=== PATIENT | male | born 1950 | race Caucasian/White ===

== ENCOUNTER → 2017-05-25 | Outpatient (CLI) | payer MEDICARE ==
--- NOTE | 2017-05-29 09:46 | P.ARTDOP ---
Arterial Doppler LOWER EXTREMITY ARTERIAL DOPPLER: DATE OF SERVICE: 05/25/2017 Reason for study: Bilateral foot discoloration and numbness. Doppler waveforms: Multiphasic bilaterally throughout. Pulse volume recording: Normal configuration. Pressure gradients: None. Ankle-brachial indices: Greater than 1 bilaterally. Toe pressures: [] on the right, [] on the left Impression: Normal study.
== END | disposition home or self-care (01) ==
LOC: RADUSMAIN 09:56
PROVIDERS: ATTEND Family Medicine
DX: R60.0 Localized edema (principal); I10 Essential (primary) hypertension
CPT/HCPCS: 93923

== ENCOUNTER 2019-10-04 16:06 | Emergency (ER) | payer MEDICARE ==
[2019-10-04 16:31] VITALS: RESP 20; TEMP 98.7
--- NOTE | 2019-10-04 16:55 | ED ---
General Adult HPI - General Chief complaint: Shortness of Breath Stated complaint: SOB, Cough Time Seen by Provider: 10/04/19 16:55 Source: patient Mode of arrival: ambulatory Limitations: no limitations - History of Present Illness Initial comments: Patient presents the ED complaining of having a cough and congestion for the past week or so. Patient also admits to feeling mildly dyspneic. Patient states that his has had similar symptoms as well, and she is currently being evaluated in the ED for her symptoms. Patient denies any other known sick contact, known Covid19 exposure or recent travel abroad. Patient denies having any pain, fever or chills, headache, neck pain or stiffness, sore throat, chest pain, hemoptysis, palpitations, dizziness, nausea/vomiting/diarrhea, abdominal pain, dysuria or urinary symptoms, leg or calf swelling or pain, or any other symptoms or complaints. - Related Data Previous Rx's Medication Instructions Recorded Doxycycline Hyclate 100 mg PO BID 7 Days #14 tab 10/04/19 Allergies Allergy/AdvReac Type Severity Reaction Status Date / Time Penicillins Allergy Rash/Hives Verified 10/04/19 16:31 Review of Systems ROS Statement: Those systems with pertinent positive or pertinent negative responses have been documented in the HPI. ROS Other: All systems not noted in ROS Statement are negative. Past Medical History Past Medical History: Hyperlipidemia, Hypertension History of Any Multi-Drug Resistant Organisms: None Reported Past Surgical History: Orthopedic Surgery Additional Past Surgical History / Comment(s): lt knee Past Psychological History: No Psychological Hx Reported Smoking Status: Former smoker Past Alcohol Use History: None Reported Past Drug Use History: None Reported General Exam Limitations: no limitations General appearance: alert, in no apparent distress Head exam: Present: atraumatic, normocephalic Eye exam: Present: normal appearance, EOMI ENT exam: Present: normal oropharynx, mucous membranes moist Neck exam: Present: other (Trachea is in midline). Absent: tenderness, meningismus Respiratory exam: Present: normal lung sounds bilaterally. Absent: respiratory distress, wheezes, rales, rhonchi, stridor Cardiovascular Exam: Present: regular rate, normal rhythm, normal heart sounds, other (Normal radial pulses bilaterally) GI/Abdominal exam: Present: soft. Absent: distended, tenderness, guarding Extremities exam: Present: other (Negative Homans sign bilaterally). Absent: tenderness, pedal edema, calf tenderness Neurological exam: Present: alert, oriented X3. Absent: motor sensory deficit Psychiatric exam: Present: normal affect, normal mood Skin exam: Present: warm, dry, intact, normal color Course Vital Signs 10/04/19 10/04/19 16:20 16:27 Temperature 98.7 F Pulse Rate 68 Respiratory 20 20 Rate Blood Pressure 106/69 O2 Sat by Pulse 94 L Oximetry - Reevaluation(s) Reevaluation #1: 10/04/19 18:05 Patient remains alert and breathing comfortably. Patient denies development of any new symptoms while in the ED. Patient is aware of his test results, and he feels comfortable being discharged home at this time. Medical Decision Making - Medical Decision Making Patient's chest x-ray shows a patchy right-sided infiltrate. Given the patient's reported cough, will treat the patient with a course of doxycycline for suspected community-acquired pneumonia. I have also explained to the patient that Covid19 is certainly still a possibility, and he was counseled about social distancing and symptoms to watch for home. Patient was counseled about pneumonia, and he was clearly explained return and follow-up instructions. He was instructed to return to the ED should he develop new or worsening dyspnea or symptoms. He was also instructed to follow up closely with his primary care provider. He feels comfortable with this plan. - Lab Data Result diagrams: 10/04/19 17:05 10/04/19 17:05 Lab Results 10/04/19 10/04/19 Range/Units 17:05 17:05 WBC 4.2 (3.8-10.6) k/uL RBC 5.24 (4.30-5.90) m/uL Hgb 16.5 (13.0-17.5) gm/dL Hct 48.3 (39.0-53.0) % MCV 92.1 (80.0-100.0) fL MCH 31.5 (25.0-35.0) pg MCHC 34.2 (31.0-37.0) g/dL RDW 12.9 (11.5-15.5) % Plt Count 103 L (150-450) k/uL Neutrophils % 65 % Lymphocytes % 25 % Monocytes % 6 % Eosinophils % 1 % Basophils % 0 % Neutrophils # 2.7 (1.3-7.7) k/uL Lymphocytes # 1.0 (1.0-4.8) k/uL Monocytes # 0.3 (0-1.0) k/uL Eosinophils # 0.0 (0-0.7) k/uL Basophils # 0.0 (0-0.2) k/uL Sodium 136 L (137-145) mmol/L Potassium 3.9 (3.5-5.1) mmol/L Chloride 99 (98-107) mmol/L Carbon Dioxide 31 H (22-30) mmol/L Anion Gap 6 mmol/L BUN 19 (9-20) mg/dL Creatinine 0.88 (0.66-1.25) mg/dL Est GFR (CKD-EPI)AfAm >90 (>60 ml/min/1.73 sqM) Est GFR (CKD-EPI)NonAf 89 (>60 ml/min/1.73 sqM) Glucose 105 H (74-99) mg/dL Calcium 8.2 L (8.4-10.2) mg/dL Total Bilirubin 1.3 (0.2-1.3) mg/dL AST 53 (17-59) U/L ALT 33 (4-49) U/L Alkaline Phosphatase 50 (38-126) U/L Total Protein 7.0 (6.3-8.2) g/dL Albumin 4.0 (3.5-5.0) g/dL - Radiology Data Radiology results: image reviewed (Chest x-ray shows patchy right-sided infiltrate and left basilar atelectasis) Disposition Clinical Impression: Pneumonia Disposition: HOME SELF-CARE Condition: Stable Instructions (If sedation given, give patient instructions): Pneumonia (ED) Additional Instructions: Return to the ER immediately should you develop increased shortness of breath, chest pain, a high fever, persistent vomiting, feeling dizzy or faint, or new or worsening symptoms. Follow up closely with your primary care provider. Prescriptions: Doxycycline Hyclate 100 mg PO BID 7 Days #14 tab Is patient prescribed a controlled substance at d/c from ED?: No Referrals: Karime Jaquez MD [Primary Care Provider] - 1-2 days Time of Disposition: 18:10
[2019-10-04 17:38] LABS: Basophils % (A) 0 %; Eosinophils % (A) 1 %; HCT 48.3 % (39.0-53.0); HGB 16.5 gm/dL (13.0-17.5); Lymphocytes % (A) 25 %; MCH 31.5 pg (25.0-35.0); MCHC 34.2 g/dL (31.0-37.0); MCV 92.1 fL (80.0-100.0); Monocytes # (A) 0.3 k/uL (0-1.0); Monocytes % (A) 6 %; Neutrophils # (A) 2.7 k/uL (1.3-7.7); Neutrophils % (A) 65 %; Platelet Count 103 k/uL (150-450); RBC 5.24 m/uL (4.30-5.90); RDW 12.9 % (11.5-15.5); WBC 4.2 k/uL (3.8-10.6)
--- NOTE | 2019-10-04 17:42 | XR ---
EXAMINATION TYPE: XR chest 2V DATE OF EXAM: 10/04/2019 COMPARISON: NONE HISTORY: Cough, shortness of breath, and fever TECHNIQUE: Frontal and lateral views of the chest are obtained. FINDINGS: Faint patchy opacities are seen in the right lower lung peripherally, right midlung, and m ore linear opacity of the left lung base suspected to represent atelectasis. No sizable pleural effus ion or pneumothorax. Cardia mediastinal silhouette is upper limits normal size. Mild degenerative perlita nge of the spine. IMPRESSION: Faint patchy multifocal right-sided airspace disease and may represent pneumonia. Left b asilar linear airspace disease appears as atelectasis.
[2019-10-04 17:46] LABS: ALT 33 U/L (4-49); AST 53 U/L (17-59); African American GFR (CKD) >90 (>60 ml/min/1.73 sqM); Alkaline Phosphatase 50 U/L (38-126); Anion Gap 6 mmol/L; Blood Urea Nitrogen 19 mg/dL (9-20); Calcium 8.2 mg/dL (8.4-10.2); Carbon Dioxide 31 mmol/L (22-30); Chloride 99 mmol/L (98-107); Glucose 105 mg/dL (74-99); Non-African American GFR(CKD) 89 (>60 ml/min/1.73 sqM); Potassium 3.9 mmol/L (3.5-5.1); Sodium 136 mmol/L (137-145); Total Bilirubin 1.3 mg/dL (0.2-1.3)
[2019-10-04] MEDS ORDERED: DOXYCYCLINE 100 MG CAP PO STA (17:52)
[2019-10-04 18:26] VITALS: BP 110/78; PULSE 67
== END 2019-10-04 18:25 | disposition home or self-care (01) ==
LOC: EC 16:06
DX: J18.9 Pneumonia, unspecified organism (principal); Z71.89 Other specified counseling; Z87.891 Personal history of nicotine dependence; Z88.0 Allergy status to penicillin
CPT/HCPCS: 36415; 71046; 80053; 85025; 99285

== ENCOUNTER 2019-10-05 22:28 | Inpatient (IN) | payer MEDICARE ==
[2019-10-05] MEDS ORDERED: SODIUM CHLORIDE 0.9% 1,000 ML IV STA (23:04)
[2019-10-05] MEDS ORDERED: ACETAMINOPHEN TAB 325 MG TAB PO STA (23:07)
--- NOTE | 2019-10-05 23:15 | ED ---
General Adult HPI - General Chief complaint: Shortness of Breath Stated complaint: Revisit SOB Time Seen by Provider: 10/05/19 22:43 Source: patient, family, RN notes reviewed, old records reviewed Mode of arrival: ambulatory Limitations: no limitations - History of Present Illness Initial comments: 69-year-old male patient past medical history significant for hypertension hyperlipidemia presents to ED for approximately 1 week of cough, shortness of breath, nausea without vomiting. Patient is on doxycycline for pneumonia. Which was started yesterday. Patient does report that he has had a waxing and waning headache as well. Denies chest pain. Denies any complaints at this time. Systemic: Pt denies fatigue, fever/chills, rash. Pt denies weakness, night sweats, weight loss. Neuro: Pt denies visual disturbances, syncope or pre-syncope. HEENT: Pt denies ocular discharge or irritation, otalgia, rhinorrhea, pharyngitis or notable lymphadenopathy. Cardiopulmonary: Pt denies chest pain, heart palpitations, dyspnea on exertion. Abdominal/GI: Pt denies abdominal pain, n/v/d. : Pt denies dysuria, burning w/ urination, frequency/urgency. Denies new onset urinary or bowel incontinence. MSK: Pt denies myalgia, loss of strength or function in extremities. Neuro: Pt denies new onset weakness, paresthesias. - Related Data Previous Rx's Medication Instructions Recorded Doxycycline Hyclate 100 mg PO BID 7 Days #14 tab 10/04/19 Allergies Allergy/AdvReac Type Severity Reaction Status Date / Time Penicillins Allergy Rash/Hives Verified 10/04/19 16:31 Review of Systems ROS Statement: Those systems with pertinent positive or pertinent negative responses have been documented in the HPI. ROS Other: All systems not noted in ROS Statement are negative. Past Medical History Past Medical History: Hyperlipidemia, Hypertension History of Any Multi-Drug Resistant Organisms: None Reported Past Surgical History: Orthopedic Surgery Additional Past Surgical History / Comment(s): lt knee Past Psychological History: No Psychological Hx Reported Smoking Status: Former smoker Past Alcohol Use History: None Reported Past Drug Use History: None Reported General Exam - General Exam Comments Initial Comments: Constitutional: NAD, AOX3, Pt has pleasant affect. HEENT: NC/AT, trachea midline, neck supple, no lymphadenopathy. Posterior pharynx non erythematous, without exudates. External ears appear normal, without discharge. Mucous membranes moist. Eyes PERRLA, EOM intact. There is no scleral icterus. No pallor noted. Cardiopulmonary: RRR, no murmurs, rubs or gallops, no JVD noted. Lungs CTAB in anterior and posterior da silva. No peripheral edema. Abdominal exam: Abdomen soft and non-distended. Abdomen non-tender to palpation in all 4 quadrants. Bowel sounds active in LLQ. No hepatosplenomegaly. No ecchymosis Neuro: CN II-XII grossly intact. No nuchal rigidity. No raccon eyes, no francisco sign, no hemotympanum. No cervical spinal tenderness. MSK: No posterior calf tenderness bilaterally, homans sign negative bilaterally. Posterior tibialis and radial pulse +2 bilaterally. Sensation intact in upper and lower extremities. Full active ROM in upper and lower extremities, 5/5 stregnth. Limitations: no limitations Course Vital Signs 10/05/19 10/05/19 10/06/19 22:37 23:50 00:20 Temperature 99.9 F H Pulse Rate 82 Respiratory 18 Rate Blood Pressure 149/78 O2 Sat by Pulse 89 L 85 L 92 L Oximetry 10/06/19 00:21 Temperature Pulse Rate Respiratory 22 Rate Blood Pressure O2 Sat by Pulse Oximetry Medical Decision Making - Medical Decision Making 69-year-old male patient past medical history significant for hypertension hyperlipidemia presents to ED for approximately 1 week of cough, shortness of breath, nausea without vomiting. Patient is on doxycycline for pneumonia. Which was started yesterday. Patient does report that he has had a waxing and waning headache as well. Denies chest pain. Denies any complaints at this time. Patient vital signs displayed temperature of 99.9F. Pulse ox urination on room air initially 89%. Patient is in the low 90s with a 2 L nasal cannula. Patient is in no respiratory distress. Laboratory investigations obtained, which are overall noncompressive. Chest x-ray displayed mild interstitial infiltrate and subsegmental atelectasis at the lung bases unchanged compared to yesterday. Patient previously on doxycycline but will be transitioned to R ocephin and azithromycin. Patient will be tested for Covid and admitted. EKG displayed prolonged QT. Patient Second degree AV block type II. Patient will be placed on telemetry with cardiology evaluation. Case discussed with Dr. Farrell. - Lab Data Result diagrams: 10/05/19 23:53 10/05/19 23:53 Lab Results 10/05/19 10/05/19 10/05/19 Range/Units 23:53 23:53 23:53 WBC 5.7 (3.8-10.6) k/uL RBC 5.14 (4.30-5.90) m/uL Hgb 15.8 (13.0-17.5) gm/dL Hct 46.8 (39.0-53.0) % MCV 91.1 (80.0-100.0) fL MCH 30.7 (25.0-35.0) pg MCHC 33.7 (31.0-37.0) g/dL RDW 12.9 (11.5-15.5) % Plt Count 123 L (150-450) k/uL Neutrophils % 87 % Lymphocytes % 8 % Monocytes % 4 % Eosinophils % 0 % Basophils % 0 % Neutrophils # 4.9 (1.3-7.7) k/uL Lymphocytes # 0.4 L (1.0-4.8) k/uL Monocytes # 0.2 (0-1.0) k/uL Eosinophils # 0.0 (0-0.7) k/uL Basophils # 0.0 (0-0.2) k/uL Sodium 135 L (137-145) mmol/L Potassium 3.5 (3.5-5.1) mmol/L Chloride 98 (98-107) mmol/L Carbon Dioxide 29 (22-30) mmol/L Anion Gap 8 mmol/L BUN 18 (9-20) mg/dL Creatinine 0.74 (0.66-1.25) mg/dL Est GFR (CKD-EPI)AfAm >90 (>60 ml/min/1.73 sqM) Est GFR (CKD-EPI)NonAf >90 (>60 ml/min/1.73 sqM) Glucose 123 H (74-99) mg/dL Plasma Lactic Acid Hernandez 1.2 (0.7-2.0) mmol/L Calcium 8.2 L (8.4-10.2) mg/dL Magnesium 2.3 (1.6-2.3) mg/dL Total Bilirubin 1.5 H (0.2-1.3) mg/dL AST 49 (17-59) U/L ALT 32 (4-49) U/L Alkaline Phosphatase 57 (38-126) U/L Troponin I (0.000-0.034) ng/mL Total Protein 6.9 (6.3-8.2) g/dL Albumin 3.9 (3.5-5.0) g/dL Influenza Type A RNA (Not Detectd) Influenza Type B (PCR) (Not Detectd) 10/05/19 10/05/19 Range/Units 23:53 23:53 WBC (3.8-10.6) k/uL RBC (4.30-5.90) m/uL Hgb (13.0-17.5) gm/dL Hct (39.0-53.0) % MCV (80.0-100.0) fL MCH (25.0-35.0) pg MCHC (31.0-37.0) g/dL RDW (11.5-15.5) % Plt Count (150-450) k/uL Neutrophils % % Lymphocytes % % Monocytes % % Eosinophils % % Basophils % % Neutrophils # (1.3-7.7) k/uL Lymphocytes # (1.0-4.8) k/uL Monocytes # (0-1.0) k/uL Eosinophils # (0-0.7) k/uL Basophils # (0-0.2) k/uL Sodium (137-145) mmol/L Potassium (3.5-5.1) mmol/L Chloride (98-107) mmol/L Carbon Dioxide (22-30) mmol/L Anion Gap mmol/L BUN (9-20) mg/dL Creatinine (0.66-1.25) mg/dL Est GFR (CKD-EPI)AfAm (>60 ml/min/1.73 sqM) Est GFR (CKD-EPI)NonAf (>60 ml/min/1.73 sqM) Glucose (74-99) mg/dL Plasma Lactic Acid Hernandez (0.7-2.0) mmol/L Calcium (8.4-10.2) mg/dL Magnesium (1.6-2.3) mg/dL Total Bilirubin (0.2-1.3) mg/dL AST (17-59) U/L ALT (4-49) U/L Alkaline Phosphatase (38-126) U/L Troponin I 0.014 (0.000-0.034) ng/mL Total Protein (6.3-8.2) g/dL Albumin (3.5-5.0) g/dL Influenza Type A RNA Not Detected (Not Detectd) Influenza Type B (PCR) Not Detected (Not Detectd) - EKG Data -: EKG Interpreted by Me (and Dr. Farrell) EKG Comments: 50-83, IN interval 172, QRS 94, QT/QTc 4.6 is 500. Prolonged QT. There does appear to be a second-degree AV block type II. Disposition Clinical Impression: Suspected COVID-19 virus infection, Pneumonia, Prolonged QT interval, Mobitz type 2 second degree AV block Disposition: ADMITTED IP TO THIS HOSP Condition: Serious Is patient prescribed a controlled substance at d/c from ED?: No Referrals: Karime Jaquez MD [Primary Care Provider] - 1-2 days
--- NOTE | 2019-10-05 23:49 | XR ---
EXAMINATION TYPE: XR chest 1V DATE OF EXAM: 10/05/2019 COMPARISON: 10/04/2019 HISTORY: Cough and fever TECHNIQUE: FINDINGS: Heart and mediastinum are normal. There is a mild interstitial infiltrate in the lower lobe s. There is no pleural effusion. There are no hilar masses. Bony thorax is intact. IMPRESSION: There is some mild interstitial infiltrate and subsegmental atelectasis at the lung bases unchanged compared to yesterday.
[2019-10-05 23:57] LABS: Basophils % (A) 0 %; Eosinophils % (A) 0 %; HCT 46.8 % (39.0-53.0); HGB 15.8 gm/dL (13.0-17.5); Lymphocytes # (A) 0.4 k/uL (1.0-4.8); Lymphocytes % (A) 8 %; MCH 30.7 pg (25.0-35.0); MCHC 33.7 g/dL (31.0-37.0); MCV 91.1 fL (80.0-100.0); Mean Platelet Volume 8.1; Monocytes # (A) 0.2 k/uL (0-1.0); Monocytes % (A) 4 %; Neutrophils # (A) 4.9 k/uL (1.3-7.7); Neutrophils % (A) 87 %; Platelet Count 123 k/uL (150-450); RBC 5.14 m/uL (4.30-5.90); RDW 12.9 % (11.5-15.5); WBC 5.7 k/uL (3.8-10.6)
[2019-10-06 00:14] LABS: ALT 32 U/L (4-49); AST 49 U/L (17-59); African American GFR (CKD) >90 (>60 ml/min/1.73 sqM); Albumin 3.9 g/dL (3.5-5.0); Alkaline Phosphatase 57 U/L (38-126); Anion Gap 8 mmol/L; Blood Urea Nitrogen 18 mg/dL (9-20); Calcium 8.2 mg/dL (8.4-10.2); Carbon Dioxide 29 mmol/L (22-30); Chloride 98 mmol/L (98-107); Glucose 123 mg/dL (74-99); Magnesium 2.3 mg/dL (1.6-2.3); Non-African American GFR(CKD) >90 (>60 ml/min/1.73 sqM); Potassium 3.5 mmol/L (3.5-5.1); Sodium 135 mmol/L (137-145); Total Bilirubin 1.5 mg/dL (0.2-1.3); Total Protein 6.9 g/dL (6.3-8.2)
[2019-10-06] MEDS ORDERED: KETOROLAC 30 MG/ML 1 ML VIAL IVP STA (00:22)
[2019-10-06] MEDS ORDERED: LEVOFLOXACIN 750MG-D5W PMX 750 MG in DEXTROSE/WATER 1 150ML.BAG IVPB STA (00:48)
[2019-10-06] MEDS ORDERED: cefTRIAXone IN SWFI 1,000 MG/10 ML SYRINGE IVP STA (00:57)
[2019-10-06] MEDS ORDERED: AZITHROMYCIN 500 MG in SODIUM CHLORIDE 0.9% 250 ML IVPB STA (00:57)
[2019-10-06] MEDS ORDERED: NALOXONE 0.4 MG/ML 1 ML VIAL IV PRN (01:06)
[2019-10-06] MEDS: SODIUM CHLORIDE 0.9% 1,000 ML IV SCH ×3 (01:28→21:50)
[2019-10-06 01:39] LABS: C Reactive Protein 33.8 mg/L (<10.0)
[2019-10-06 01:41] LABS: Partial Thromboplastin Time 26.8 sec (22.0-30.0)
[2019-10-06 02:01] LABS: D-Dimer 0.83 mg/L FEU (<0.60)
--- NOTE | 2019-10-06 04:42 | P.HPIM ---
History of Present Illness H&P Date: 10/06/19 Chief Complaint: cough SOB, fever I was wearing full PPE during this encounter including N95 mask, face shield, double gloves, gown, and head cover. patient had a surgical mask on during my entire interview. i maintained 6 feet distance with the patient who verbalized understanding about these precautionary measures. except for during my physical exam where i had to be close to the patient. 69-year-old male with hypertension controlled with medications , DEVEN on CPAP Patient comes in today with 10 day history of dry cough and headache along with body aches. denies any sore throat, but does admit to changes in taste sensation . he also reports difficulty taking deep breath with what seems like pleuritic chest pain . denies any nausea or vomiting denies any changes to smell sensation, denies any diarrhea Reports recent traveling to [place] however they stayed at a friend's house that was end of August and they drove back here. he denies any known contact with COVID positive patient's EKG showed premature atrial contractions. during my interview his heart rate was dropping to 40s briefly , but asymptomatic. QTC 500 he admits to episode of syncope beginning of september, worked up outpatient , no final diagnosis with with similar respiratory symptoms Patient was tested for covid and admitted for further care In the ED he was found to be hypoxic and started on 2 L NC CXR showed infilterates Review of Systems Pertinent positives as noted in HPI. All other systems were reviewed and are negative Past Medical History Past Medical History: Hyperlipidemia, Hypertension History of Any Multi-Drug Resistant Organisms: None Reported Past Surgical History: Orthopedic Surgery Additional Past Surgical History / Comment(s): lt knee Past Psychological History: No Psychological Hx Reported Smoking Status: Former smoker Past Alcohol Use History: None Reported Past Drug Use History: None Reported - Past Family History Father Family Medical History: No Reported History Mother Family Medical History: Cancer Medications and Allergies Home Medications Medication Instructions Recorded Confirmed Type Doxycycline Hyclate 100 mg PO BID 7 Days #14 tab 10/04/19 10/06/19 Rx Esomeprazole Magnesium 40 mg PO DAILY 10/06/19 10/06/19 History Gabapentin [Neurontin] 600 mg PO HS 10/06/19 10/06/19 History Pravastatin Sodium [Pravachol] 40 mg PO DAILY 10/06/19 10/06/19 History Sucralfate 1 gm PO DAILY 10/06/19 10/06/19 History Tamsulosin [Flomax] 0.4 mg PO DAILY 10/06/19 10/06/19 History amLODIPine [Norvasc] 10 mg PO DAILY 10/06/19 10/06/19 History buPROPion XL [Wellbutrin Xl] 150 mg PO DAILY 10/06/19 10/06/19 History rOPINIRole HCL 3 mg PO HS 10/06/19 10/06/19 History Allergies Allergy/AdvReac Type Severity Reaction Status Date / Time Penicillins Allergy Rash/Hives Verified 10/04/19 16:31 Physical Exam Vitals: Vital Signs Temp Pulse Resp BP Pulse Ox 10/06/19 00:21 22 10/06/19 00:20 92 L 10/05/19 23:50 85 L 10/05/19 22:37 99.9 F H 82 18 149/78 89 L Intake and Output 10/05/19 10/05/19 10/06/19 14:59 22:59 06:59 Other: Weight 109.769 kg Constitutional: No acute distress, conversant, pleasant, on nasal canu la Eyes: Anicteric sclerae, moist conjunctiva, Pupils equal round reactive to light ENMT: NC/AT Oropharynx clear, no erythema, exudates Neck: Supple, FROM, no masses, or JVD No carotid bruits No thyromegaly Lungs: diminished breath sounds at lung basis, no wheezing rhonci or rales Clear to percussion Normal respiratory effort, no accessory muscle use Cardiovascular: Heart regular in rate and rhythm, with skipped beats occasional No murmurs, gallops, or rubs No peripheral edema Abdominal: Soft Nontender, no guarding, rebound or rigidity Abdomen moving with respiration Normoactive bowel sounds No hepatomegaly, No splenomegaly No palpable mass No abdominal wall hernia noted Skin: Normal temperature, tone, texture, turgor No induration No subcutaneous nodules No rash, lesions No ulcers Extremities: No digital cyanosis No clubbing Pedal pulses intact and symmetrical Radial pulses intact and symmetrical No calf tenderness Psychiatric: Alert and oriented to person, place and time Appropriate affect fair judgement Neuro Muscles Strength 5/5 in all 4 extremities Sensation to light touch grossly present throughout Cranial nerves II-XII grossly intact No focal sensory deficits Lymphatics: no palpable cervical or supraclavicular , or inguinal lymph nodes Results CBC & Chem 7: 10/05/19 23:53 10/05/19 23:53 Labs: Abnormal Lab Results - Last 24 Hours (Table) 10/05/19 10/05/19 Range/Units 23:53 23:53 Plt Count 123 L (150-450) k/uL Lymphocytes # 0.4 L (1.0-4.8) k/uL Sodium 135 L (137-145) mmol/L Glucose 123 H (74-99) mg/dL Calcium 8.2 L (8.4-10.2) mg/dL Total Bilirubin 1.5 H (0.2-1.3) mg/dL Assessment and Plan Assessment: 69-year-old male with hypertension and obstructive sleep apnea Comes in due to symptoms of upper respiratory infection with coughing shortness of breath and fever in the ED he was found to by hypoxic and was placed on 2 L nasal cannula. His blood pressure was also borderline and he had some episodes of bradycardia patient admits to recent history of syncope. Patient suspected to have covid admitted for further care and testing anticipated length of stay more than 2 midnights Acute pneumonia viral versus bacterial Suspected Covid D-dimer slightly elevated this was done for prognostic evaluation of Covid Mild thrombocytopenia Elevated LDH mildly elevated creatine kinase and elevated C-reactive protein Follow-up pro calcitonin and ferritin Influenza testing negative Troponin negative BNP negative Tylenol for fever Supplemental oxygen as needed keep oxygen saturation above 92% Patient is a candidate for Plaquenil, consult ID Avoid azithromycin due to prolonged QT interval Rocephin IV for possible underlying bacterial pneumonia Tylenol when necessary for fever Influenza testing negative Hypertension currently borderline low Hold home medications Continue to monitor closely Gentle IV fluid hydration as needed to support blood pressure generally should be conservative due to suspected Covid Obstructive sleep apnea Patient advised to avoid using CPAP due to possibility of aerosolized patient of the virus Patient verbalized understanding History of syncope with current episodes of bradycardia Cardiology consult Cardiac telemetry Troponins negative EKG reviewed CODE STATUS: Full code DVT prophylaxis: Heparin subcu 3 times a day Discussed with: Patient, ER, RN Anticipated length of stay more than [address]: Home A total of 60 minutes was spent on the care of this complex patient more than 50% of the time was spent in counseling and care coordination.
[2019-10-06] MEDS ORDERED: POTASSIUM CHLORIDE ER 20 MEQ TAB.ER PO STA (07:59)
--- NOTE | 2019-10-06 08:48 | P.PN ---
Progress Note - Text Progress Note Date: 10/06/19 Patient was seen today, he is currently doing okay, continues to have cough and slight shortness of breath. No phlegm production. No fevers but did have some chills earlier. Plan Add cough syrup, Robitussin-AC Continue ceftriaxone Awaiting ID recommendations Continue to monitor pulse oximetry
[2019-10-06] MEDS: TAMSULOSIN 0.4 MG CAP.ER.24H PO SCH (08:54)
[2019-10-06] MEDS: PANTOPRAZOLE 40 MG TABLET PO SCH (08:54)
[2019-10-06] MEDS: HEPARIN SODIUM,PORCINE 5,000 UNIT/ML 1 ML VIAL SQ SCH ×2 (08:54→16:49)
[2019-10-06] MEDS: PRAVASTATIN SODIUM 40 MG TAB PO SCH (08:54)
--- NOTE | 2019-10-06 09:43 | CONS ---
CONSULTATION Mr. Sami Medrano is a gentleman with history of hypertension, hyperlipidemia, probably underlying depression, sleep apnea syndrome, wears a CPAP. He apparently travelled to [place], came back 3-4 weeks ago. He came in with complaints of having difficulty breathing and he was short of breath upon arrival to the emergency room. He had lymphopenia, a temperature of 99.9. He was hospitalized with concern that this may be COVID-19 infection and he is being ruled out for this. The patient's lymphopenia is noted. He has been on doxycycline for what seems to be recent URI type symptoms. He is comfortable. Denies any chest discomfort. His shortness of breath seems to have improved a lot. PAST MEDICAL HISTORY: 1. Hypertension. 2. Hyperlipidemia. 3. Sleep apnea syndrome, uses CPAP regularly. ALLERGIES: He is allergic to PENICILLIN according to the chart. MEDICATIONS: He takes doxycycline. He is on a course of antibiotics. He also takes Wellbutrin, amlodipine 10 mg daily, Flomax 0.4 mg daily, pravastatin 40 mg daily, and also takes Neurontin. LABORATORY DATA: Laboratory data suggests that his troponin is unremarkable. His proBNP is unremarkable. His D-dimer is up to 0.83 but clinically, there is no evidence to suggest any pulmonary embolism or DVT. He does have some lymphopenia on the first blood work that was done. PHYSICAL EXAMINATION: VITAL SIGNS: Blood pressure is 130/70, pulse rate is about 68 per minute, regular. HEENT: Unremarkable. Fundus was not examined by me. NECK: Supple. No JVD. I do not hear a carotid bruit. HEART: Exam reveals S1, S2 heard normally. Distant heart sounds. No murmur of significance. LUNGS: Reveal diminished air entry. ABDOMEN: Soft. LOWER EXTREMITIES: Reveal diminished pulses. CENTRAL NERVOUS SYSTEM: Normal. EKG revealed sinus mechanism with some PACs and sinus arrhythmia. I have reviewed the rhythm strips. There is no evidence of any heart blocks of either first degree or second degree on this patient. This consult was for possible bradycardia and heart block. There is no such evidence on reviewing the rhythm strips or EKGs. IMPRESSION: 1. Shortness of breath with an abnormal EKG suggestive of some interstitial changes. Rule out any interstitial pneumonia. 2. Hypertension, under control. 3. No evidence of any chest discomfort. 4. No evidence of any bradyarrhythmia. RECOMMENDATIONS: I am recommending that no intervention is necessary from a cardiac standpoint. I would recommend an echocardiogram to assess the LV function. Elevated D-dimer is not significant. Clinically, no clearcut evidence of DVT or PE. However, if he continues to have shortness of breath, I will order a CT angio to rule out any pulmonary embolism. The patient is currently on subcu heparin which we will continue for now. Workup for COVID-19 infection is in progress. Thank you very much for the consult. MMNENOL / IJN: [id number] /
--- NOTE | 2019-10-06 10:49 | CT ---
CT CHEST FOR PULMONARY EMBOLISM. EXAMINATION TYPE: CT angio chest DATE OF EXAM: 10/06/2019 INDICATION: r/o pe , r/o aortic pathology, suspected COVID pneumonia CT DLP: 684.4 mGycm, Automated exposure control for dose reduction was used. CONTRAST: Patient injected with 100 mL of Isovue 370. COMPARISON: TECHNIQUE: CT of the chest is performed on a spiral scan at 2 mm thick sections. Study is performed with intravenous contrast timed for evaluation for pulmonary embolism. This will limit additional po rtions of the evaluation. 3-D MIP images reconstructed by the technologist are reviewed on the compu ter in the coronal and sagittal planes. FINDINGS: No persistent filling defects are evident to suggest an acute pulmonary embolism. There are scattered groundglass opacities within the periphery of the upper lung da silva bilaterally. This extends through the mid lungs to the lower lobes. Infectious etiologies including COVID19 should be considered. There is a 1.3 cm lymph node in the subcarinal region. A 1.0 cm lymph node is in the right hilar charla on. Small shotty lymphadenopathy is at the aortopulmonic window pretracheal space. There is an enlarg ed 1.1 cm lymph node in the lateral aortopulmonic window. The ascending aorta diameter at the level of the main pulmonary artery is 4.9 cm. The main pulmonary artery diameter at the bifurcation is 3.7 cm. Very small hiatal hernia without reflux is present. Limited CT sections are obtained through the upper abdomen which are unremarkable. Limited CT section through the upper abdomen are unremarkable. IMPRESSIONS: 1. Peripheral groundglass opacities and infiltrates. Infectious etiologies including coronavirus shou ld be considered. 2. No acute pulmonary embolism. 3. Enlarged mediastinal adenopathy. A [place] critical message alert has been initiated for Sean Bates MD via the [employer] Critical Results System on 10/06/2019 10:47 AM. This message alert has been sent to Sean clemons MD via the preferences provided by the clinician for the receipt of Radiology Critical Findings. Fransico essage ID [id number].
[2019-10-06] MEDS: LOSARTAN 50 MG TAB PO SCH (11:46)
[2019-10-06] MEDS: HYDROXYCHLOROQUINE SULFATE 200 MG TAB PO SCH ×2 (11:46→21:49)
[2019-10-06 12:48] LABS: Glucose,Whole Blood 103 mg/dL (75-99)
[2019-10-06] MEDS ORDERED: AZITHROMYCIN 500 MG TAB PO SCH (13:00)
[2019-10-06 13:23] LABS: ABG Base Excess 3.3 mmol/L; ABG HCO3 27 mmol/L (21-25); ABG Oxygen Saturation 96.6 % (94-97); ABG PCO2 38 mmHg (35-45); ABG PH 7.46 (7.35-7.45); ABG PO2 96 mmHg (83-108); ABG TCO2 28 mmol/L (19-24); Allen Test Performed? Yes
[2019-10-06] MEDS: ACETAMINOPHEN TAB 325 MG TAB PO PRN ×2 (13:42→18:47)
[2019-10-06] MEDS ORDERED: Potassium Replacement Protocol 1 EACH MISC MISCELLANE PRN (17:49)
[2019-10-06] MEDS: POTASSIUM CHLORIDE ER 20 MEQ TAB.ER PO SCH ×2 (18:47→20:33)
[2019-10-06] MEDS: amLODIPine 5 MG TAB PO SCH (20:33)
--- NOTE | 2019-10-06 21:25 | P.CNPUL ---
History of Present Illness Consult date: 10/06/19 Reason for consult: dyspnea History of present illness: 69-year-old male patient admitted to the hospital because of cough and shortness of breath and fever with a very high suspicious for a COVID 19 pneumonia. The patient reports traveling to [place] however he stated a friend's house and this was by the end of August and he drove back to [place]. Denies having any sick contacts. His had similar respiratory symptoms. In the emergency department, the patient was found to be hypoxic and the patient was started on 2 L of oxygen by nasal cannula. Chest x-ray showed some mild interstitial infiltrates bilaterally along with some segmental atelectatic changes in lung bases. His influenza screen was negative. His white cell count was at 5.7. His plated count was 123 which was low. D-dimer was 0.83. He had an LDH of 1095. He had a CPK of 194. C-reactive protein was 33.8. ProBNP level was 183. The pro calcitonin level was 0.05. The patient had some difficulty breathing and on with that he admitted some change in the taste sensation and he was having headache some diffuse body aches. He denied having and diarrhea. This morning, he became more hypoxic. The blood. This was done on 65% FiO2 showed a pH of 7.46 with a pCO2 of 38 and pO2 of 96. The patient was placed on 6 L of oxygen by nasal cannula and later on to 8 L and the patient got chest into the intensive care unit. His resting comfortably in bed. His respiratory rate is between 18 and 24. No significant tachycardia. The CAT scan of the chest was done and showed peripheral groundglass changes most on the lung bases and the findings are typical of Covid 19 infection. The patient also has some enlarged mediastinal lymphadenopathy. No evidence of any pulmonary embolism for now. Review of Systems Constitutional: Reports fever, Reports lethargy, Reports weakness Eyes: denies as per HPI, denies blurred vision, denies bulging eye, denies decreased vision, denies diplopia, denies discharge, denies dry eye, denies irritation, denies itching, denies pain, denies photophobia, denies loss of peripheral vision, denies loss of vision, denies tunnel vision/blind spots Ears: deny: decreased hearing, ear discharge, earache, tinnitus Ears, nose, mouth and throat: Denies headache, Denies sore throat Breasts: absent: as per HPI, gynecomastia Cardiovascular: Reports decreased exercise tolerance, Reports dyspnea on exertion Respiratory: Reports cough, Reports dyspnea Gastrointestinal: Reports as per HPI Genitourinary: Reports as per HPI Musculoskeletal: Reports as per HPI Musculoskeletal: absent: ankle pain, ankle stiffness, ankle swelling Integumentary: Reports as per HPI Neurological: Reports as per HPI Psychiatric: Reports as per HPI Endocrine: Reports as per HPI Hematologic/Lymphatic: Reports as per HPI Allergic/Immunologic: Reports as per HPI Past Medical History Past Medical History: Hyperlipidemia, Hypertension, Sleep Apnea/CPAP/BIPAP History of Any Multi-Drug Resistant Organisms: None Reported Past Surgical History: Orthopedic Surgery Additional Past Surgical History / Comment(s): lt knee Past Anesthesia/Blood Transfusion Reactions: No Reported Reaction Past Psychological History: No Psychological Hx Reported Smoking Status: Former smoker Past Alcohol Use History: None Reported Past Drug Use History: None Reported - Past Family History Father Family Medical History: No Reported History Mother Family Medical History: Cancer Medications and Allergies Home Medications Medication Instructions Recorded Confirmed Type Doxycycline Hyclate 100 mg PO BID 7 Days #14 tab 10/04/19 10/06/19 Rx Aspirin EC [Ecotrin Low Dose] 81 mg PO DAILY 10/06/19 10/06/19 History Esomeprazole Magnesium 40 mg PO DAILY 10/06/19 10/06/19 History Gabapentin 600 mg PO DAILY 10/06/19 10/06/19 History Pravastatin Sodium [Pravachol] 40 mg PO HS 10/06/19 10/06/19 History Tamsulosin [Flomax] 0.4 mg PO BID 10/06/19 10/06/19 History amLODIPine [Norvasc] 10 mg PO DAILY 10/06/19 10/06/19 History buPROPion XL [Wellbutrin Xl] 450 mg PO DAILY 10/06/19 10/06/19 History rOPINIRole HCL 3 mg PO HS 10/06/19 10/06/19 History Allergies Allergy/AdvReac Type Severity Reaction Status Date / Time Penicillins Allergy Rash/Hives Verified 10/06/19 09:40 Physical Exam Vitals: Vital Signs Temp Pulse Pulse Resp BP BP Pulse Ox 10/06/19 12:00 98.7 F 88 24 165/79 94 L 10/06/19 09:29 97.2 F L 75 16 147/89 97 10/06/19 03:56 18 10/06/19 03:20 98.6 F 65 18 131/70 93 L 10/06/19 00:21 22 10/06/19 00:20 92 L 10/05/19 23:50 85 L 10/05/19 22:37 99.9 F H 82 18 149/78 89 L Intake and Output 10/05/19 10/06/19 10/06/19 22:59 06:59 14:59 Intake Total 300 456 Output Total 0 100 Balance 300 356 Intake: IV 300 100 Sodium Chloride 0.9% 1, 300 100 000 ml @ 100 mls/hr IV . Q10H [facility] Rx#:[id number] Oral 356 Output: Urine 0 100 Other: Weight 109.769 kg 109.7 kg Gen. appearance the patient is in, comfortable likely distress. Currently on 6 L of oxygen by nasal cannula. Head exam was generally normal. There was no scleral icterus or corneal arcus. Mucous membranes were moist. Neck was supple and without jugular venous distension, thyromegaly, or carotid bruits. Carotids were easily palpable bilaterally. There was no adenopathy. Lungs sounds are diminished along with that there is some few crackles in lung bases bilaterally. Cardiac exam revealed the PMI to be normally situated and sized. The rhythm was regular and no extrasystoles were noted during several minutes of auscultation. The first and second heart sounds were normal and physiologic splitting of the second heart sound was noted. There were no murmurs, rubs, clicks, or gallops. Abdominal exam revealed normal bowel sounds. The abdomen was soft, non-tender, and without masses, organomegaly, or appreciable enlargement of the abdominal aorta. Examination of the extremities revealed easily palpable radial, femoral and pedal pulses. There was no cyanosis, clubbing or edema. Examination of the skin revealed no evidence of significant rashes, suspicious appearing nevi or other concerning lesions. Neurologically awake and alert and there is no focal neurological deficits. Results - Laboratory Findings CBC and BMP: 10/05/19 23:53 10/06/19 16:36 ABG ABG pH 7.46 (7.35-7.45) H 10/06/19 13:20 ABG pCO2 38 mmHg (35-45) 10/06/19 13:20 ABG pO2 96 mmHg (83-108) 10/06/19 13:20 ABG O2 Saturation 96.6 % (94-97) 10/06/19 13:20 PT/INR, D-dimer PT 10.0 sec (9.0-12.0) 10/06/19 00:00 INR 1.0 (<1.2) 10/06/19 00:00 D-Dimer 0.83 mg/L FEU (<0.60) H 10/06/19 00:00 Abnormal lab findings: Abnormal Labs 10/05/19 10/05/19 10/06/19 23:53 23:53 00:00 Plt Count 123 L Lymphocytes # 0.4 L D-Dimer 0.83 H ABG pH ABG HCO3 ABG Total CO2 Sodium 135 L Glucose 123 H POC Glucose (mg/dL) Calcium 8.2 L Total Bilirubin 1.5 H Lactate Dehydrogenase Creatine Kinase C-Reactive Protein 10/06/19 10/06/19 10/06/19 00:00 12:29 13:20 Plt Count Lymphocytes # D-Dimer ABG pH 7.46 H ABG HCO3 27 H ABG Total CO2 28 H Sodium Glucose POC Glucose (mg/dL) 103 H Calcium Total Bilirubin Lactate Dehydrogenase 1095 H Creatine Kinase 194 H C-Reactive Protein 33.8 H - Diagnostic Findings Chest x-ray: image reviewed CT scan - chest: image reviewed Assessment and Plan Plan: 1 acute bilateral interstitial pneumonia with diffuse peripheral lower lobe p redominance groundglass changes most consistent with Covid 19 infection. The patient has elevation in the LDH, d-dimer and C-reactive protein. procalcitonin level is low. Influenza screen was negative. Troponin is negative. The patient is currently afebrile. Nevertheless the patient became progressively more hypoxic and the patient got transferred to the intensive care unit for further monitoring. 2 acute hypoxic respiratory failure secondary to above 3 mild thrombocytopenia secondary to above 4 hypertension 5 hyperlipidemia 6 obstructive sleep apnea 7 BPH Plan Initiate laque corneal 400 mg by mouth twice a day to be followed by 200 mg twice a day per protocol. Continue Rocephin May discontinue Zithromax Oxygen 6 L per minute nasal cannula Monitor overall pulmonary status very closely. High likelihood that the patient may further decompensated and for that reason he needs to be monitored in intensive care unit. We'll continue to follow.
--- NOTE | 2019-10-07 00:04 | P.CONS ---
History of Present Illness - Reason for Consult Consult date: 10/06/19 Fever and pneumonia Requesting physician: Sean Bates - Chief Complaint cough and shortness of breath x few days - History of Present Illness Patient is a 69-year male presenting to the ER at [facility] yesterday with chief complaints of increasing shortness of breath and cough that has been getting worse for the last 1 week patient cough is mostly moderate in intensity and has been dry in nature with no significant purulent sputum production patient did have some nausea no vomiting patient denies other URI symptoms patient has felt feverish and apparently was started on doxycycline in the outpatient setting for possible pneumonia on presentation to the hospital patient did have a low-grade fever of 99.9 however the patient did spike a fever of 102 F this afternoon patient did not have significant tachycardia he did have a mild hypoxemia on presentation with O2 sats of 89% patient did have lymphopenia with elevated LDH and CRP procalcitonin was normal patient did have a chest x-ray mild interstitial infiltrate and subsegmental atelectasis in the lung bases patient did have a CT angiogram which was peripheral groundglass [place] infiltrates with concern for possible rhinoviral infection ID was consulted for further management of underlying possible viral pneumonia Review of Systems positive point has been mentioned in HPI rest of the systems are negative. Past Medical History Past Medical History: Hyperlipidemia, Hypertension, Sleep Apnea/CPAP/BIPAP History of Any Multi-Drug Resistant Organisms: None Reported Past Surgical History: Orthopedic Surgery Additional Past Surgical History / Comment(s): lt knee Past Anesthesia/Blood Transfusion Reactions: No Reported Reaction Past Psychological History: No Psychological Hx Reported Smoking Status: Former smoker Past Alcohol Use History: None Reported Past Drug Use History: None Reported - Past Family History Father Family Medical History: No Reported History Mother Family Medical History: Cancer Medications and Allergies Home Medications Medication Instructions Recorded Confirmed Type Doxycycline Hyclate 100 mg PO BID 7 Days #14 tab 10/04/19 10/06/19 Rx Aspirin EC [Ecotrin Low Dose] 81 mg PO DAILY 10/06/19 10/06/19 History Esomeprazole Magnesium 40 mg PO DAILY 10/06/19 10/06/19 History Gabapentin 600 mg PO DAILY 10/06/19 10/06/19 History Pravastatin Sodium [Pravachol] 40 mg PO HS 10/06/19 10/06/19 History Tamsulosin [Flomax] 0.4 mg PO BID 10/06/19 10/06/19 History amLODIPine [Norvasc] 10 mg PO DAILY 10/06/19 10/06/19 History buPROPion XL [Wellbutrin Xl] 450 mg PO DAILY 10/06/19 10/06/19 History rOPINIRole HCL 3 mg PO HS 10/06/19 10/06/19 History Allergies Allergy/AdvReac Type Severity Reaction Status Date / Time Penicillins Allergy Rash/Hives Verified 10/06/19 09:40 Physical Exam Vitals: Vital Signs Temp Pulse Pulse Resp BP BP Pulse Ox 10/06/19 17:00 75 12 123/87 94 L 10/06/19 16:00 67 16 116/58 95 10/06/19 15:00 75 20 116/68 94 L 10/06/19 14:30 88 23 10/06/19 14:15 75 23 132/69 95 10/06/19 14:00 78 20 95 10/06/19 13:45 79 25 H 131/73 94 L 10/06/19 13:30 102 F H 79 18 96 10/06/19 13:15 80 16 138/74 94 L 10/06/19 13:00 80 20 93 L 10/06/19 12:45 102.7 F H 78 26 H 144/75 97 10/06/19 12:00 98.7 F 88 24 165/79 94 L 10/06/19 09:29 97.2 F L 75 16 147/89 97 10/06/19 03:56 18 10/06/19 03:20 98.6 F 65 18 131/70 93 L 10/06/19 00:21 22 10/06/19 00:20 92 L 10/05/19 23:50 85 L 10/05/19 22:37 99.9 F H 82 18 149/78 89 L Intake and Output 10/06/19 10/06/19 10/06/19 06:59 14:59 22:59 Intake Total 300 456 300 Output Total 0 100 195 Balance 300 356 105 Intake: IV 300 100 300 Sodium Chloride 0.9% 1, 300 100 300 000 ml @ 100 mls/hr IV . Q10H [facility] Rx#:[id number] Oral 356 Output: Urine 0 100 195 Other: Voiding Method Indwelling Catheter Weight 109.7 kg GENERAL DESCRIPTION: Elderly male lying in bed, no distress. No tachypnea or accessory muscle of respiration use. HEENT: Shows Pallor , no scleral icterus. Oral mucous membrane is dry. NECK: Trachea central, no thyromegaly. LUNGS: Unlabored breathing. Decreased intensity of breath sounds. No wheeze or crackle. HEART: S1, S2, regular rate and rhythm. ABDOMEN: Soft, no tenderness , guarding or rigidity EXTREMITIES: No edema of feet. SKIN: No rash, no masses palpable. NEUROLOGICAL: The patient is awake, alert, oriented x3, mood and affect normal. Results CBC & Chem 7: 10/05/19 23:53 10/06/19 16:36 Labs: Abnormal Lab Results - Last 24 Hours (Table) 10/05/19 10/05/19 10/06/19 Range/Units 23:53 23:53 00:00 Plt Count 123 L (150-450) k/uL Lymphocytes # 0.4 L (1.0-4.8) k/uL D-Dimer 0.83 H (<0.60) mg/L FEU ABG pH (7.35-7.45) ABG HCO3 (21-25) mmol/L ABG Total CO2 (19-24) mmol/L Sodium 135 L (137-145) mmol/L Glucose 123 H (74-99) mg/dL POC Glucose (mg/dL) (75-99) mg/dL Calcium 8.2 L (8.4-10.2) mg/dL Total Bilirubin 1.5 H (0.2-1.3) mg/dL Lactate Dehydrogenase (313-618) U/L Creatine Kinase (55-170) U/L C-Reactive Protein (<10.0) mg/L 10/06/19 10/06/19 10/06/19 Range/Units 00:00 12:29 13:20 Plt Count (150-450) k/uL Lymphocytes # (1.0-4.8) k/uL D-Dimer (<0.60) mg/L FEU ABG pH 7.46 H (7.35-7.45) ABG HCO3 27 H (21-25) mmol/L ABG Total CO2 28 H (19-24) mmol/L Sodium (137-145) mmol/L Glucose (74-99) mg/dL POC Glucose (mg/dL) 103 H (75-99) mg/dL Calcium (8.4-10.2) mg/dL Total Bilirubin (0.2-1.3) mg/dL Lactate Dehydrogenase 1095 H (313-618) U/L Creatine Kinase 194 H (55-170) U/L C-Reactive Protein 33.8 H (<10.0) mg/L Assessment and Plan Assessment: 1- Patient presenting to the hospital with fever in this patient who did have hypoxemia lymphopenia elevated LDH and CRP with groundglass opacities seen on the CT highly suspicious for acute COVID-19 pneumonia in this patient apparently sick with similar illness and is admitted to this hospital (1) Pneumonia Current Visit: Yes Status: Acute Code(s): J18.9 - PNEUMONIA, UNSPECIFIED ORGANISM SNOMED Code(s): 701608809 (2) Suspected COVID-19 virus infection Current Visit: Yes Status: Acute Code(s): R68.89 - OTHER GENERAL SYMPTOMS AND SIGNS SNOMED Code(s): 377707183 Plan: 1-patient will be started on Plaquenil 400 g twice daily x2 doses followed by 200 g twice daily for 4 days 2- Patient may benefit from short course of low-dose prednisone Solu-Medrol 3-respiratory support and droplet isolation We will follow on clinical condition and cultures to further adjust medication if needed Thank you for this consultation we will follow the patient along with you Time with Patient: Greater than 30
[2019-10-07] MEDS: HEPARIN SODIUM,PORCINE 5,000 UNIT/ML 1 ML VIAL SQ SCH ×4 (00:09→23:03)
[2019-10-07] MEDS: ACETAMINOPHEN TAB 325 MG TAB PO PRN ×3 (02:12→21:01)
[2019-10-07 05:33] LABS: Basophils % (A) 0 %; Eosinophils % (A) 0 %; HCT 41.9 % (39.0-53.0); HGB 13.6 gm/dL (13.0-17.5); Lymphocytes # (A) 0.8 k/uL (1.0-4.8); Lymphocytes % (A) 11 %; MCH 30.3 pg (25.0-35.0); MCHC 32.5 g/dL (31.0-37.0); MCV 93.4 fL (80.0-100.0); Monocytes # (A) 0.3 k/uL (0-1.0); Monocytes % (A) 4 %; Neutrophils # (A) 5.7 k/uL (1.3-7.7); Neutrophils % (A) 83 %; Platelet Count 122 k/uL (150-450); RBC 4.49 m/uL (4.30-5.90); RDW 12.8 % (11.5-15.5); WBC 6.9 k/uL (3.8-10.6)
[2019-10-07 05:45] LABS: African American GFR (CKD) >90 (>60 ml/min/1.73 sqM); Anion Gap 4 mmol/L; Blood Urea Nitrogen 15 mg/dL (9-20); Calcium 7.5 mg/dL (8.4-10.2); Carbon Dioxide 27 mmol/L (22-30); Chloride 104 mmol/L (98-107); Glucose 92 mg/dL (74-99); Non-African American GFR(CKD) >90 (>60 ml/min/1.73 sqM); Potassium 3.5 mmol/L (3.5-5.1); Sodium 135 mmol/L (137-145)
[2019-10-07] MEDS ORDERED: IBUPROFEN 400 MG TAB PO STA (05:58)
[2019-10-07] MEDS ORDERED: Potassium Replacement Protocol 1 EACH MISC MISCELLANE PRN (06:12)
[2019-10-07] MEDS ORDERED: IBUPROFEN 400 MG TAB PO ONE (06:15)
[2019-10-07] MEDS: POTASSIUM CHLORIDE ER 20 MEQ TAB.ER PO SCH ×2 (06:20→08:10)
--- NOTE | 2019-10-07 07:42 | XR ---
EXAMINATION TYPE: XR chest 1V portable DATE OF EXAM: 10/07/2019 Comparison: 10/05/2019 Clinical History: 69-year-old male SOB Findings: Artery limits of normal in size. Prominent peripheral hazy densities related to overlying soft tissue . Patchy opacities right mid and lower lung also at the peripheral left base may be slightly increasi ng. Impression: Increasing patchy peripheral infiltrates right mid and lower lung and left base.
[2019-10-07] MEDS: HYDROXYCHLOROQUINE SULFATE 200 MG TAB PO SCH ×2 (08:09→21:01)
[2019-10-07] MEDS: TAMSULOSIN 0.4 MG CAP.ER.24H PO SCH (08:10)
[2019-10-07] MEDS: PANTOPRAZOLE 40 MG TABLET PO SCH (08:10)
[2019-10-07] MEDS: LOSARTAN 50 MG TAB PO SCH (08:10)
[2019-10-07] MEDS: SODIUM CHLORIDE 0.9% 1,000 ML IV SCH ×2 (08:10→19:42)
[2019-10-07] MEDS: PRAVASTATIN SODIUM 40 MG TAB PO SCH (08:10)
--- NOTE | 2019-10-07 10:53 | P.PN ---
Subjective Progress Note Date: 10/07/19 Patient seen and examined at bedside, patient afebrile this morning but had a low-grade temp 100.1 at midnight. Patient continues on 10 L via nasal cannul sats 91-95%. LDH elevated at 1095 creatinine kinase 194, CRP 33.8 troponin negative at 0.032. Pro-calcitonin 0.05. CT of the chest showing peripheral groundglass opacities and infiltrates with mediastinal lymphadenopathy negative for PE. Patient denies any chest pain, complains of shortness of breath and fatigue. I was wearing full PPE during this encounter including N95 mask, face shield, double gloves, gown, and head cover. patient had a surgical mask on during my entire interview. i maintained 6 feet distance with the patient who verbalized understanding about these precautionary measures. except for during my physical exam where i had to be close to the patient. Objective - Vital Signs Vital signs: Vital Signs Temp 97.5 F L 10/07/19 04:00 Pulse 65 10/07/19 07:00 Resp 24 10/07/19 07:00 BP 117/76 10/07/19 07:00 Pulse Ox 94 L 10/07/19 07:00 Intake & Output 10/06/19 10/07/19 10/07/19 18:59 06:59 18:59 Intake Total 856 1310 100 Output Total 375 855 75 Balance 481 455 25 Intake: IV 500 1250 100 Sodium Chloride 0.9% 1, 500 1200 100 000 ml @ 100 mls/hr IV . Q10H [facility] Rx#:[id number] cefTRIAXone 1 gm In 50 Sodium Chloride 0.9% 50 ml @ 100 mls/hr IVPB Q24H [facility] Rx#:[id number] Oral 356 60 Output: Urine 375 855 75 Other: Voiding Method Indwelling Catheter Indwelling Catheter - Exam Constitutional: Weakness fatigue and dyspneic Eyes: Anicteric sclerae, moist conjunctiva, no lid-lag, PERRLA ENMT: NC/AT,Oropharynx clear, no erythema, exudates Neck:Supple, FROM, no masses, or JVD, No carotid bruits; No thyromegaly Lungs: Diminished in the bases scattered rhonchi, currently on 10 L via nasal cannula Cardiovascular: Heart regular in rate and rhythm, No murmurs, gallops, or rubs no peripheral edema Abdominal: Soft Nontender, nom distended, no guarding, no rebound or rigidity, Normoactive bowel sounds No hepatomegaly, No splenomegaly, No palpable mass No abdominal wall hernia noted Skin: Normal temperature, tone, texture, turgor, No induration No subcutaneous nodules, No rash, lesions, No ulcers Extremities:No digital cyanosis No clubbing, Pedal pulses intact and symmetrical Radial pulses intact and symmetrical Psychiatric: Alert and oriented to person, place and time, Appropriate affect Intact judgement Neuro: Muscles Strength 5/5 in all 4 extremities, Sensation to light touch grossly present throughout, Cranial nerves II-XII grossly intact. No focal sensory deficits - Labs CBC & Chem 7: 10/07/19 05:06 10/07/19 05:06 Labs: Abnormal Lab Results - Last 24 Hours (Table) 10/05/19 10/06/19 10/06/19 Range/Units 23:53 12:29 13:20 Plt Count (150-450) k/uL Lymphocytes # (1.0-4.8) k/uL ABG pH 7.46 H (7.35-7.45) ABG HCO3 27 H (21-25) mmol/L ABG Total CO2 28 H (19-24) mmol/L Sodium (137-145) mmol/L POC Glucose (mg/dL) 103 H (75-99) mg/dL Calcium (8.4-10.2) mg/dL Ferritin 768.0 H (22.0-322.0) ng/mL 10/07/19 10/07/19 Range/Units 05:06 05:06 Plt Count 122 L (150-450) k/uL Lymphocytes # 0.8 L (1.0-4.8) k/uL ABG pH (7.35-7.45) ABG HCO3 (21-25) mmol/L ABG Total CO2 (19-24) mmol/L Sodium 135 L (137-145) mmol/L POC Glucose (mg/dL) (75-99) mg/dL Calcium 7.5 L (8.4-10.2) mg/dL Ferritin (22.0-322.0) ng/mL Microbiology - Last 24 Hours (Table) 10/05/19 23:30 Blood Culture - Preliminary Blood No Growth after 24 hours Assessment and Plan Assessment: Acute respiratory failure with hypoxemia * Secondary to pneumonia suspect viral secondary to Covid-19 * Continue supplemental oxygen currently on 10 L by nasal cannula * Pulmonary consulted and is following * Chest x-ray showing increasing patchy peripheral infiltrates right mid and lower lung and left base Sepsis * Secondary to a viral pneumonia, pro-calcitonin was negative, Covid 19 pending * Patient still intermittently febrile without leukocytosis and lymphopenia and blood pressure continues to be stable * Continue Rocephin and azithromycin and Plaquenil * ID consulted and is following Pneumonia * Bilateral pneumonia likely viral * Treatment as above Essential hypertension * Blood pressure stable * Continue Norvasc and ARB Syncope * Echocardiogram pending, cardiology also consulted * possibly secondary to Covid 19 Disposition * Continue to monitor patient closely low threshold for intubation * Continue current isolation precautions
--- NOTE | 2019-10-07 13:33 | P.PN ---
Subjective Progress Note Date: 10/07/19 Principal diagnosis: Acute bilateral posterior shoulder pneumonia, suspect CoVID 19 infection 69-year-old male patient admitted to the hospital because of cough and shortness of breath and fever with a very high suspicious for a COVID 19 pneumonia. The patient reports traveling to [place] however he stated a friend's house and this was by the end of August and he drove back to [place]. Denies having any sick contacts. His had similar respiratory symptoms. In the emergency department, the patient was found to be hypoxic and the patient was started on 2 L of oxygen by nasal cannula. Chest x-ray showed some mild interstitial infiltrates bilaterally along with some segmental atelectatic changes in lung bases. His influenza screen was negative. His white cell count was at 5.7. His plated count was 123 which was low. D-dimer was 0.83. He had an LDH of 10 95. He had a CPK of 194. C-reactive protein was 33.8. ProBNP level was 183. The pro calcitonin level was 0.05. The patient had some difficulty breathing and on with that he admitted some change in the taste sensation and he was having headache some diffuse body aches. He denied having and diarrhea. This morning, he became more hypoxic. The blood. This was done on 65% FiO2 showed a pH of 7.46 with a pCO2 of 38 and pO2 of 96. The patient was placed on 6 L of oxygen by nasal cannula and later on to 8 L and the patient got chest into the intensive care unit. His resting comfortably in bed. His respiratory rate is between 18 and 24. No significant tachycardia. The CAT scan of the chest was done and showed peripheral groundglass changes most on the lung bases and the findings are typical of Covid 19 infection. The patient also has some enlarged mediastinal lymphadenopathy. No evidence of any pulmonary embolism for now. The patient is seen today 10/07/2019 in follow-up in the intensive care unit. He is awake and alert. He is sitting up in a chair at the bedside. He is still quite short of breath. Continues with a dry nonproductive cough. Still requiring 10 L high flow nasal cannula to maintain O2 saturations in the 90s. He is currently afebrile. Hemodynamically stable. He is feeling about the same as compared to yesterday. No better but no worse presently. White count 6.9. Hemoglobin 13.6. Platelet count 122,000. Lymphocytes 0.8. Sodium 135. Potas sium 3.5. Creatinine 0.70. Troponin 0.032. He remains on ceftriaxone, Plaquenil. Azithromycin was discontinued. Zinc was added. Discontinued ibuprofen. Blood cultures reveal no growth. Objective - Vital Signs Vital signs: Vital Signs Temp 97.9 F 10/07/19 12:00 Pulse 69 10/07/19 13:00 Resp 15 10/07/19 13:00 BP 108/63 10/07/19 13:00 Pulse Ox 93 L 10/07/19 13:00 Intake & Output 10/06/19 10/07/19 10/07/19 18:59 06:59 18:59 Intake Total 856 1310 1000 Output Total 375 855 445 Balance 481 455 555 Weight 109.7 kg Intake: IV 500 1250 400 Sodium Chloride 0.9% 1, 500 1200 400 000 ml @ 50 mls/hr IV . Q20H [facility] Rx#:[id number] cefTRIAXone 1 gm In 50 Sodium Chloride 0.9% 50 ml @ 100 mls/hr IVPB Q24H [facility] Rx#:[id number] Oral 356 60 600 Output: Urine 375 855 445 Other: Voiding Method Indwelling Catheter Indwelling Catheter Indwelling Catheter - Exam Gen. appearance A very pleasant 69-year-old gentleman, on 10 L high flow oxygen, up in a chair at the bedside, in mild respiratory distress. Head exam was generally normal. There was no scleral icterus or corneal arcus. Mucous membranes were moist. Neck was supple and without jugular venous distension, thyromegaly, or carotid bruits. Carotids were easily palpable bilaterally. There was no adenopathy. Lungs sounds are diminished along with that there is some few crackles in lung bases bilaterally. Cardiac exam revealed the PMI to be normally situated and sized. The rhythm was regular and no extrasystoles were noted during several minutes of auscultation. The first and second heart sounds were normal and physiologic splitting of the second heart sound was noted. There were no murmurs, rubs, clicks, or gallops. Abdominal exam revealed normal bowel sounds. The abdomen was soft, non-tender, and without masses, organomegaly, or appreciable enlargement of the abdominal aorta. Examination of the extremities revealed easily palpable radial, femoral and pedal pulses. There was no cyanosis, clubbing or edema. Examination of the skin revealed no evidence of significant rashes, suspicious appearing nevi or other concerning lesions. Neurologically awake and alert and there is no focal neurological deficits. - Labs CBC & Chem 7: 10/07/19 05:06 10/07/19 05:06 Labs: Abnormal Lab Results - Last 24 Hours (Table) 10/05/19 10/06/19 10/07/19 Range/Units 23:53 13:20 05:06 Plt Count 122 L (150-450) k/uL Lymphocytes # 0.8 L (1.0-4.8) k/uL ABG pH 7.46 H (7.35-7.45) ABG HCO3 27 H (21-25) mmol/L ABG Total CO2 28 H (19-24) mmol/L Sodium (137-145) mmol/L Calcium (8.4-10.2) mg/dL Ferritin 768.0 H (22.0-322.0) ng/mL 10/07/19 Range/Units 05:06 Plt Count (150-450) k/uL Lymphocytes # (1.0-4.8) k/uL ABG pH (7.35-7.45) ABG HCO3 (21-25) mmol/L ABG Total CO2 (19-24) mmol/L Sodium 135 L (137-145) mmol/L Calcium 7.5 L (8.4-10.2) mg/dL Ferritin (22.0-322.0) ng/mL Microbiology - Last 24 Hours (Table) 10/05/19 23:30 Blood Culture - Preliminary Blood No Growth after 24 hours Assessment and Plan Assessment: 1 acute bilateral interstitial pneumonia with diffuse peripheral lower lobe predominance groundglass changes most consistent with Covid 19 infection. The patient has elevation in the LDH, d-dimer and C-reactive protein. procalcitonin level is low. Influenza screen was negative. Troponin is negative. The patient is currently afebrile. Maintained on Plaquenil, zinc, Rocephin. Azithromycin discontinued. 2 acute hypoxic respiratory failure secondary to above 3 mild thrombocytopenia secondary to above 4 hypertension 5 hyperlipidemia 6 obstructive sleep apnea 7 BPH Plan The patient was seen and evaluated by Dr. Velez Continue Plaquenil Continue ceftriaxone Add Zinc Check LDH in a.m. Continue to monitor closely in the intensive care unit Titrate down the FiO2 as tolerated We'll continue to follow make further recommendations based on his clinical status I, the cosigning physician, performed a history & physical examination of the patient. Lungs sounds with bilateral scattered rhonchi. Maintaining good O2 saturations in the 90s on 10 L high flow nasal cannula. I discussed the assessment and plan of care with my nurse practitioner, Nikia Servin. I attest to the above note as dictated by her.
[2019-10-07] MEDS: ZINC SULFATE 220 MG CAP PO SCH (13:45)
--- NOTE | 2019-10-07 15:54 | PN ---
PROGRESS NOTE DATE OF SERVICE: 10/07/2019 REASON FOR FOLLOWUP: Acute COVID-19 pneumonia. INTERVAL HISTORY: The patient's overall fever pattern has improved. The last temperature has been 100.1 around midnight. No fever since then. The patient is breathing slightly comfortably, still requiring about 10 L of high-flow oxygen. Not tachycardic. No chest pain. He did have some cough, intensity about the same, no sputum. No nausea, no vomiting. No abdominal pain, no diarrhea. PHYSICAL EXAMINATION: Blood pressure 128/72 with a pulse of 67, temperature is 97.9. He is 94% on 10 high- flow oxygen. General description is an elderly male, up in the chair in no distress. RESPIRATORY SYSTEM: Unlabored breathing, clear to auscultation, no wheeze. HEART: S1, S2. Regular rate and rhythm. ABDOMEN: Soft, no tenderness. LABS: Hemoglobin 13.2, white count 6.9, BUN of 15, creatinine 0.75. DIAGNOSTIC IMPRESSION AND PLAN: Patient with acute viral pneumonia, likely COVID-19. . Patient's nasopharyngeal swab is currently pending. Patient will be continued on the Plaquenil, zinc and will monitor clinical course closely. Continue supportive care. MMODL / IJN: [id number] / MTDD
[2019-10-07] MEDS: amLODIPine 5 MG TAB PO SCH (20:42)
[2019-10-07] MEDS: guaiFENesin-Coden 100-10MG/5ML 10 ML CUP PO PRN (23:17)
[2019-10-08 05:23] LABS: Basophils % (A) 1 %; Eosinophils % (A) 1 %; HCT 42.7 % (39.0-53.0); HGB 13.8 gm/dL (13.0-17.5); Lymphocytes # (A) 0.9 k/uL (1.0-4.8); Lymphocytes % (A) 15 %; MCH 30.6 pg (25.0-35.0); MCHC 32.4 g/dL (31.0-37.0); MCV 94.4 fL (80.0-100.0); Mean Platelet Volume 7.8; Monocytes # (A) 0.2 k/uL (0-1.0); Monocytes % (A) 4 %; Neutrophils # (A) 4.6 k/uL (1.3-7.7); Neutrophils % (A) 78 %; Platelet Count 134 k/uL (150-450); RBC 4.52 m/uL (4.30-5.90); RDW 12.9 % (11.5-15.5); WBC 5.9 k/uL (3.8-10.6)
[2019-10-08 05:55] LABS: African American GFR (CKD) >90 (>60 ml/min/1.73 sqM); Anion Gap 6 mmol/L; Blood Urea Nitrogen 13 mg/dL (9-20); Calcium 7.5 mg/dL (8.4-10.2); Carbon Dioxide 29 mmol/L (22-30); Chloride 102 mmol/L (98-107); Glucose 91 mg/dL (74-99); LDH 1087 U/L (313-618); Non-African American GFR(CKD) >90 (>60 ml/min/1.73 sqM); Potassium 3.5 mmol/L (3.5-5.1); Sodium 137 mmol/L (137-145)
[2019-10-08] MEDS ORDERED: Potassium Replacement Protocol 1 EACH MISC MISCELLANE PRN (05:58)
[2019-10-08] MEDS: POTASSIUM CHLORIDE ER 20 MEQ TAB.ER PO SCH ×2 (06:35→08:23)
[2019-10-08] MEDS: guaiFENesin-Coden 100-10MG/5ML 10 ML CUP PO PRN ×3 (06:37→23:02)
--- NOTE | 2019-10-08 07:51 | XR ---
EXAMINATION TYPE: XR chest 1V portable DATE OF EXAM: 10/08/2019 Comparison: 10/07/2019 Clinical History: 69 year-old male shortness of breath Findings: Heart upper limits of normal in size. Increasing, more confluent peripherally located areas of consol idation bilaterally. No sizable effusion. Impression: Worsening bilateral consolidation in a peripheral distribution.
[2019-10-08] MEDS: HYDROXYCHLOROQUINE SULFATE 200 MG TAB PO SCH ×2 (08:23→21:31)
[2019-10-08] MEDS: PANTOPRAZOLE 40 MG TABLET PO SCH (08:23)
[2019-10-08] MEDS: LOSARTAN 50 MG TAB PO SCH (08:23)
[2019-10-08] MEDS: ZINC SULFATE 220 MG CAP PO SCH (08:23)
[2019-10-08] MEDS: TAMSULOSIN 0.4 MG CAP.ER.24H PO SCH (08:23)
[2019-10-08] MEDS: HEPARIN SODIUM,PORCINE 5,000 UNIT/ML 1 ML VIAL SQ SCH ×2 (08:23→15:24)
[2019-10-08] MEDS: PRAVASTATIN SODIUM 40 MG TAB PO SCH (08:23)
[2019-10-08] MEDS: methylPREDNISolone SOD SUCCI 125 MG/2 ML VIAL IV SCH ×2 (10:38→21:27)
--- NOTE | 2019-10-08 11:00 | P.PN ---
Subjective Progress Note Date: 10/08/19 Patient examined at bedside, patient pretty fatigued today after having paroxysms of cough overnight with poor sleep. He continues to be dyspneic with exertion, patient continues on supplemental oxygen currently on 10 L by nasal cannula. The patient's fever has broken Covid testing did return positive. Chest x-ray showing worsening bilateral consolidation and a peripheral distribution, LDH marginally down to 1087. Objective - Vital Signs Vital signs: Vital Signs Temp 97.9 F 10/08/19 08:00 Pulse 68 10/08/19 10:00 Resp 16 10/08/19 09:00 BP 127/74 10/08/19 10:00 Pulse Ox 97 10/08/19 10:00 Intake & Output 10/07/19 10/08/19 10/08/19 18:59 06:59 18:59 Intake Total 1490 600 440 Output Total 675 915 210 Balance 815 -315 230 Intake: IV 650 600 200 Sodium Chloride 0.9% 1, 500 150 000 ml @ 50 mls/hr IV . Q20H [facility] Rx#:[id number] cefTRIAXone 1 gm In 150 600 50 Sodium Chloride 0.9% 50 ml @ 100 mls/hr IVPB Q24H [facility] Rx#:[id number] Oral 840 240 Output: Urine 675 915 210 Other: Voiding Method Indwelling Catheter Indwelling Catheter Indwelling Catheter - Exam Constitutional: Weakness fatigue and dyspneic Eyes: Anicteric sclerae, moist conjunctiva, no lid-lag, PERRLA ENMT: NC/AT,Oropharynx clear, no erythema, exudates Neck:Supple, FROM, no masses, or JVD, No carotid bruits; No thyromegaly Lungs: Diminished in the bases scattered rhonchi, currently on 10 L via nasal cannula Cardiovascular: Heart regular in rate and rhythm, No murmurs, gallops, or rubs no peripheral edema Abdominal: Soft Nontender, nom distended, no guarding, no rebound or rigidity, Normoactive bowel sounds No hepatomegaly, No splenomegaly, No palpable mass No abdominal wall hernia noted Skin: Normal temperature, tone, texture, turgor, No induration No subcutaneous nodules, No rash, lesions, No ulcers Extremities:No digital cyanosis No clubbing, Pedal pulses intact and symmetrical Radial pulses intact and symmetrical Psychiatric: Alert and oriented to person, place and time, Appropriate affect Intact judgement Neuro: Muscles Strength 5/5 in all 4 extremities, Sensation to light touch grossly present throughout, Cranial nerves II-XII grossly intact. No focal sensory deficits - Labs CBC & Chem 7: 10/08/19 04:53 10/08/19 04:53 Labs: Abnormal Lab Results - Last 24 Hours (Table) 10/08/19 10/08/19 Range/Units 04:53 04:53 Plt Count 134 L (150-450) k/uL Lymphocytes # 0.9 L (1.0-4.8) k/uL Calcium 7.5 L (8.4-10.2) mg/dL Lactate Dehydrogenase 1087 H (313-618) U/L Microbiology - Last 24 Hours (Table) 10/05/19 23:30 Blood Culture - Preliminary Blood No Growth after 48 hours Assessment and Plan Assessment: nCoV acute respiratory disease * Continue current treatment protocol pulmonary and ID recommendations appreciated * Covid positive * Initiated on steroids by pulmonary * continue zinc, Plaquenil, Rocephin Acute respiratory failure with hypoxemia * Secondary to pneumonia secondary to Covid-19 * Continue supplemental oxygen currently on 10 L by nasal cannula * Pulmonary consulted and is following * Chest x-ray showing worsening bilateral consolidation and peripheral pattern Sepsis * Secondary to a viral pneumonia, pro-calcitonin was negative, Covid 19 positive * Patient still intermittently febrile without leukocytosis and lymphopenia and blood pressure continues to be stable * Continue Rocephin and Plaquenil * ID consulted and is following Pneumonia * Bilateral pneumonia likely viral * Treatment as above Essential hypertension * Blood pressure stable * Continue Norvasc and ARB Syncope * Echocardiogram pending, cardiology also consulted * Secondary to Covid-19 Disposition * Continue to monitor patient closely low threshold for intubation * Continue current isolation precautions
[2019-10-08] MEDS: SODIUM CHLORIDE 0.9% 1,000 ML IV SCH (13:43)
--- NOTE | 2019-10-08 15:25 | P.PN ---
Subjective Progress Note Date: 10/08/19 69-year-old male patient admitted to the hospital because of cough and shortness of breath and fever with a very high suspicious for a COVID 19 pneumonia. The patient reports traveling to [place] however he stated a friend's house and this was by the end of August and he drove back to [place]. Denies having any sick contacts. His had similar respiratory symptoms. In the emergency department, the patient was found to be hypoxic and the patient was started on 2 L of oxygen by nasal cannula. Chest x-ray showed some mild interstitial infiltrates bilaterally along with some segmental atelectatic changes in lung bases. His influenza screen was negative. His white cell count was at 5.7. His plated count was 123 which was low. D-dimer was 0.83. He had an LDH of 1095. He had a CPK of 194. C-reactive protein was 33.8. ProBNP level was 183. The pro calcitonin level was 0.05. The patient had some difficulty breathing and on with that he admitted some change in the taste sensation and he was having headache some diffuse body aches. He denied having and diarrhea. This morning, he became more hypoxic. The blood. This was done on 65% FiO2 showed a pH of 7.46 with a pCO2 of 38 and pO2 of 96. The patient was placed on 6 L of oxygen by nasal cannula and later on to 8 L and the patient got chest into the intensive care unit. His resting comfortably in bed. His respiratory rate is between 18 and 24. No significant tachycardia. The CAT scan of the chest was done and showed peripheral groundglass changes most on the lung bases and the findings are typical of Covid 19 infection. The patient also has some enlarged mediastinal lymphadenopathy. No evidence of any pulmonary embolism for now. The patient is seen today 10/07/2019 in follow-up in the intensive care unit. He is awake and alert. He is sitting up in a chair at the bedside. He is still quite short of breath. Continues with a dry nonproductive cough. Still requiring 10 L high flow nasal cannula to maintain O2 saturations in the 90s. He is currently afebrile. Hemodynamically stable. He is feeling about the same as compared to yesterday. No better but no worse presently. White count 6.9. Hemoglobin 13.6. Platelet count 122,000. Lymphocytes 0.8. Sodium 135. Potassium 3.5. Creatinine 0.70. Troponin 0.032. He remains on ceftriaxone, Plaquenil. Azithromycin was discontinued. Zinc was added. Discontinued ibuprofen. Blood cultures reveal no growth. On 10/08/2019 and seeing the patient for follow-up. The patient is essentially the same compared to yesterday. Chest x-ray may show some interval worsening of the breath and pulmonary infiltrates mainly in the lung peripheries. Nevertheless the patient remains on high flow oxygen 10 L per minute nasal cannula. Unable to wean it down any further. He remains on Plaquenil. He remains on zinc sulfate. He is still episodically spiking fever with a temperature 102.4. He has a LDH level of 1087. CPK was at 194. Pro calcitonin level was low. Covid 19 analysis came back positive. The patient has no headache. No altered mentation. No chest pain. No nausea. No vomiting. No abdominal pain. No other significant events overnight. His cough is not aggressive and it's minimal at this point in time. Objective - Vital Signs Vital signs: Vital Signs Temp 97.9 F 10/08/19 12:00 Pulse 72 10/08/19 14:00 Resp 20 10/08/19 14:00 BP 108/77 10/08/19 14:00 Pulse Ox 94 L 10/08/19 14:00 Intake & Output 10/07/19 10/08/19 10/08/19 18:59 06:59 18:59 Intake Total 1490 600 640 Output Total 675 915 510 Balance 815 -315 130 Weight 110 kg Intake: IV 650 600 400 Sodium Chloride 0.9% 1, 500 350 000 ml @ 50 mls/hr IV . Q20H [facility] Rx#:[id number] cefTRIAXone 1 gm In 150 600 50 Sodium Chloride 0.9% 50 ml @ 100 mls/hr IVPB Q24H [facility] Rx#:[id number] Oral 840 240 Output: Urine 675 915 510 Other: Voiding Method Indwelling Catheter Indwelling Catheter Indwelling Catheter - Exam Gen. appearance A very pleasant 69-year-old gentleman, on 10 L high flow oxygen, up in a chair at the bedside, in mild respiratory distress. Head exam was generally normal. There was no scleral icterus or corneal arcus. Mucous membranes were moist. Neck was supple and without jugular venous distension, thyromegaly, or carotid bruits. Carotids were easily palpable bilaterally. There was no adenopathy. Lungs sounds are diminished along with that there is some few crackles in lung bases bilaterally. Cardiac exam revealed the PMI to be normally situated and sized. The rhythm was regular and no extrasystoles were noted during several minutes of auscultation. The first and second heart sounds were normal and physiologic splitting of the second heart sound was noted. There were no murmurs, rubs, clicks, or gallops. Abdominal exam revealed normal bowel sounds. The abdomen was soft, non-tender, and without masses, organomegaly, or appreciable enlargement of the abdominal aorta. Examination of the extremities revealed easily palpable radial, femoral and pedal pulses. There was no cyanosis, clubbing or edema. Examination of the skin revealed no evidence of significant rashes, suspicious appearing nevi or other concerning lesions. Neurologically awake and alert and there is no focal neurological deficits. - Labs CBC & Chem 7: 10/08/19 04:53 10/08/19 04:53 Labs: Abnormal Lab Results - Last 24 Hours (Table) 10/08/19 10/08/19 Range/Units 04:53 04:53 Plt Count 134 L (150-450) k/uL Lymphocytes # 0.9 L (1.0-4.8) k/uL Calcium 7.5 L (8.4-10.2) mg/dL Lactate Dehydrogenase 1087 H (313-618) U/L Microbiology - Last 24 Hours (Table) 10/05/19 23:30 Blood Culture - Preliminary Blood No Growth after 48 hours Assessment and Plan Plan: 1 acute Covid 19 pneumonia with bilateral interstitial pneumonia with diffuse peripheral lower lobe predominance groundglass changes The patient has elevation in the LDH, d-dimer and C-reactive protein. procalcitonin level is low. Influenza screen was negative. Troponin is negative. The patient continues to be symptomatic and 10 L of oxygen by nasal cannula. Unable to wean him done this morning and this will be a constant effort to wean down the patient's FiO2. Still spiking episodic fever. Inflammatory markers will be monitored. The patient be kept in the intensive care unit for now is in the above-mentioned symptomatology. 2 acute hypoxic respiratory failure secondary to above, still on 10 L of oxygen by nasal cannula. 3 mild thrombocytopenia secondary to above, slightly improved on today's evaluation 4 hypertension 5 hyperlipidemia 6 obstructive sleep apnea 7 BPH Plan Continue Plaquenil 200 mg twice a day per protocol. Continue Rocephin Titrate FiO2 to maintain a saturation above 90%. Currently on 10 L about 2 by nasal cannula. Add IV Solu-Medrol 60 mg every 12 hours for the next 3 days Continue antihypertensive medication Monitor overall pulmonary status very closely. High likelihood that the patient may further decompensated and for that reason he needs to be monitored in intensive care unit. We'll continue to follow.
[2019-10-08] MEDS: amLODIPine 5 MG TAB PO SCH (21:27)
--- NOTE | 2019-10-08 23:33 | PN ---
PROGRESS NOTE DATE OF SERVICE: 10/08/2019 REASON FOR FOLLOWUP: Acute COVID-19 pneumonia. INTERVAL HISTORY: The patient is currently afebrile. The patient is hemodynamically stable, has been breathing slightly comfortably, currently on 6 L high-flow oxygen. Denies any chest pain. Minimal cough. No nausea or vomiting. No abdominal pain. No diarrhea. PHYSICAL EXAMINATION: Blood pressure 119/88 with a pulse of 68, temperature 98.9. He is 96% on 6 L nasal cannula. General description is an elderly male lying in bed in no distress. RESPIRATORY SYSTEM: Unlabored breathing with decreased intensity of breath sounds. No wheeze. HEART: S1, S2. Regular rate and rhythm. ABDOMEN: Soft. No tenderness. LABS: Hemoglobin 13.8, white count 5.9. BUN of 13, creatinine 0.77. Electrolytes have been normal. LDH is 1087. DIAGNOSTIC IMPRESSION AND PLAN: Patient with acute COVID-19 pneumonia, for which the patient is currently covered with Plaquenil zinc and steroids continue and monitor his clinical course closely. Continue supportive care. MMODL / IJN: [id number] / [id number]
[2019-10-09] MEDS: HEPARIN SODIUM,PORCINE 5,000 UNIT/ML 1 ML VIAL SQ SCH ×4 (00:22→23:20)
[2019-10-09] MEDS: ACETAMINOPHEN TAB 325 MG TAB PO PRN (02:43)
[2019-10-09 05:33] LABS: Basophils % (A) 0 %; Eosinophils % (A) 0 %; HCT 43.4 % (39.0-53.0); HGB 14.2 gm/dL (13.0-17.5); Lymphocytes # (A) 0.4 k/uL (1.0-4.8); Lymphocytes % (A) 7 %; MCH 30.3 pg (25.0-35.0); MCHC 32.7 g/dL (31.0-37.0); MCV 92.6 fL (80.0-100.0); Mean Platelet Volume 7.8; Monocytes # (A) 0.2 k/uL (0-1.0); Monocytes % (A) 3 %; Neutrophils # (A) 5.1 k/uL (1.3-7.7); Neutrophils % (A) 87 %; Platelet Count 177 k/uL (150-450); RBC 4.68 m/uL (4.30-5.90); RDW 12.7 % (11.5-15.5); WBC 5.9 k/uL (3.8-10.6)
[2019-10-09 05:56] LABS: African American GFR (CKD) >90 (>60 ml/min/1.73 sqM); Anion Gap 3 mmol/L; Blood Urea Nitrogen 12 mg/dL (9-20); C Reactive Protein 71.5 mg/L (<10.0); Calcium 7.9 mg/dL (8.4-10.2); Carbon Dioxide 30 mmol/L (22-30); Chloride 104 mmol/L (98-107); Glucose 158 mg/dL (74-99); LDH 1073 U/L (313-618); Non-African American GFR(CKD) >90 (>60 ml/min/1.73 sqM); Potassium 3.8 mmol/L (3.5-5.1); Sodium 137 mmol/L (137-145)
[2019-10-09] MEDS ORDERED: POTASSIUM CHLORIDE ER 20 MEQ TAB.ER PO SCH (07:00)
[2019-10-09] MEDS: HYDROXYCHLOROQUINE SULFATE 200 MG TAB PO SCH ×2 (08:02→21:16)
[2019-10-09] MEDS: TAMSULOSIN 0.4 MG CAP.ER.24H PO SCH (08:02)
[2019-10-09] MEDS: PANTOPRAZOLE 40 MG TABLET PO SCH (08:02)
[2019-10-09] MEDS: LOSARTAN 50 MG TAB PO SCH (08:03)
[2019-10-09] MEDS: methylPREDNISolone SOD SUCCI 125 MG/2 ML VIAL IV SCH ×2 (08:04→21:14)
[2019-10-09] MEDS: PRAVASTATIN SODIUM 40 MG TAB PO SCH (08:05)
[2019-10-09] MEDS: ZINC SULFATE 220 MG CAP PO SCH (08:05)
--- NOTE | 2019-10-09 10:19 | XR ---
EXAMINATION TYPE: XR chest 1V portable DATE OF EXAM: 10/09/2019 HISTORY: Follow-up pneumonia COMPARISON: October 08, 2019 TECHNIQUE: Single view of the chest is submitted. FINDINGS: Demonstrated are scattered senescent parenchymal change. Bilateral peripheral infiltrates persist. The heart is stable. Hilar and mediastinal structures are within normal limits. Degenerative changes are seen of the dorsal spine. IMPRESSION: 1. Bilateral peripheral infiltrates persist.
[2019-10-09] MEDS ORDERED: GABAPENTIN 300 MG CAP PO SCH (10:30)
--- NOTE | 2019-10-09 13:07 | P.PN ---
Subjective Progress Note Date: 10/09/19 Patient examined at bedside, reports being more rested today. He continues to be dyspneic with exertion, patient continues on supplemental oxygen currently on 6-8 L by nasal cannula. The patient's fever has broken Covid testing did return positive. Chest x-ray showing worsening bilateral consolidation and a peripheral distribution, LDH marginally down to 1087. Objective - Vital Signs Vital signs: Vital Signs Temp 98 F 10/09/19 08:00 Pulse 77 10/09/19 11:00 Resp 19 10/09/19 11:00 BP 133/89 10/09/19 11:00 Pulse Ox 89 L 10/09/19 11:00 Intake & Output 10/08/19 10/09/19 10/09/19 18:59 06:59 18:59 Intake Total 1300 1375 450 Output Total 1055 2930 995 Balance 245 -1555 -545 Weight 115.7 kg Intake: IV 600 625 250 Sodium Chloride 0.9% 1, 550 575 250 000 ml @ 50 mls/hr IV . Q20H [facility] Rx#:[id number] cefTRIAXone 1 gm In 50 50 Sodium Chloride 0.9% 50 ml @ 100 mls/hr IVPB Q24H [facility] Rx#:[id number] Oral 700 250 200 Tube Feeding 500 Output: Urine 1055 2930 995 Other: Voiding Method Indwelling Catheter Indwelling Catheter Indwelling Catheter - Exam Constitutional: Weakness fatigue and dyspneic Eyes: Anicteric sclerae, moist conjunctiva, no lid-lag, PERRLA ENMT: NC/AT,Oropharynx clear, no erythema, exudates Neck:Supple, FROM, no masses, or JVD, No carotid bruits; No thyromegaly Lungs: Diminished in the bases scattered rhonchi, currently on 10 L via nasal cannula Cardiovascular: Heart regular in rate and rhythm, No murmurs, gallops, or rubs no peripheral edema Abdominal: Soft Nontender, nom distended, no guarding, no rebound or rigidity, Normoactive bowel sounds No hepatomegaly, No splenomegaly, No palpable mass No abdominal wall hernia noted Skin: Normal temperature, tone, texture, turgor, No induration No subcutaneous nodules, No rash, lesions, No ulcers Extremities:No digital cyanosis No clubbing, Pedal pulses intact and symmetrical Radial pulses intact and symmetrical Psychiatric: Alert and oriented to person, place and time, Appropriate affect Intact judgement Neuro: Muscles Strength 5/5 in all 4 extremities, Sensation to light touch grossly present throughout, Cranial nerves II-XII grossly intact. No focal sensory deficits - Labs CBC & Chem 7: 10/09/19 05:00 10/09/19 05:00 Labs: Abnormal Lab Results - Last 24 Hours (Table) 10/09/19 10/09/19 10/09/19 Range/Units 05:00 05:00 05:00 Lymphocytes # 0.4 L (1.0-4.8) k/uL D-Dimer 1.22 H (<0.60) mg/L FEU Creatinine 0.57 L (0.66-1.25) mg/dL Glucose 158 H (74-99) mg/dL Calcium 7.9 L (8.4-10.2) mg/dL Lactate Dehydrogenase 1073 H (313-618) U/L C-Reactive Protein 71.5 H (<10.0) mg/L Microbiology - Last 24 Hours (Table) 10/05/19 23:30 Blood Culture - Preliminary Blood No Growth after 72 hours Assessment and Plan Assessment: nCoV acute respiratory disease * Continue current treatment protocol pulmonary and ID recommendations appreciated * Covid positive * Initiated on steroids by pulmonary * continue zinc, Plaquenil, Rocephin Acute respiratory failure with hypoxemia * Secondary to pneumonia secondary to Covid-19 * Continue supplemental oxygen currently on 6 L by nasal cannula * Pulmonary consulted and is following * Chest x-ray showing worsening bilateral consolidation and peripheral pattern Sepsis * Secondary to a viral pneumonia, pro-calcitonin was negative, Covid 19 positive * Patient still intermittently febrile without leukocytosis and lymphopenia and blood pressure continues to be stable * Continue Rocephin and Plaquenil * ID consulted and is following Pneumonia * Bilateral pneumonia likely viral * Treatment as above Essential hypertension * Blood pressure stable * Continue Norvasc and ARB Syncope * Secondary to Covid-19 Disposition * Continue to monitor patient closely low threshold for intubation * Continue current isolation precautions
--- NOTE | 2019-10-09 13:10 | P.PN ---
Subjective Progress Note Date: 10/09/19 69-year-old male patient admitted to the hospital because of cough and shortness of breath and fever with a very high suspicious for a COVID 19 pneumonia. The patient reports traveling to [place] however he stated a friend's house and this was by the end of August and he drove back to [place]. Denies having any sick contacts. His had similar respiratory symptoms. In the emergency department, the patient was found to be hypoxic and the patient was started on 2 L of oxygen by nasal cannula. Chest x-ray showed some mild interstitial infiltrates bilaterally along with some segmental atelectatic changes in lung bases. His influenza screen was negative. His white cell count was at 5.7. His plated count was 123 which was low. D-dimer was 0.83. He had an LDH of 1095. He had a CPK of 194. C-reactive protein was 33.8. ProBNP level was 183. The pro calcitonin level was 0.05. The patient had some difficulty breathing and on with that he admitted some change in the taste sensation and he was having headache some diffuse body aches. He denied having and diarrhea. This morning, he became more hypoxic. The blood. This was done on 65% FiO2 showed a pH of 7.46 with a pCO2 of 38 and pO2 of 96. The patient was placed on 6 L of oxygen by nasal cannula and later on to 8 L and the patient got chest into the intensive care unit. His resting comfortably in bed. His respiratory rate is between 18 and 24. No significant tachycardia. The CAT scan of the chest was done and showed peripheral groundglass changes most on the lung bases and the findings are typical of Covid 19 infection. The patient also has some enlarged mediastinal lymphadenopathy. No evidence of any pulmonary embolism for now. The patient is seen today 10/07/2019 in follow-up in the intensive care unit. He is awake and alert. He is sitting up in a chair at the bedside. He is still quite short of breath. Continues with a dry nonproductive cough. Still requiring 10 L high flow nasal cannula to maintain O2 saturations in the 90s. He is currently afebrile. Hemodynamically stable. He is feeling about the same as compared to yesterday. No better but no worse presently. White count 6.9. Hemoglobin 13.6. Platelet count 122,000. Lymphocytes 0.8. Sodium 135. Potassium 3.5. Creatinine 0.70. Troponin 0.032. He remains on ceftriaxone, Plaquenil. Azithromycin was discontinued. Zinc was added. Discontinued ibuprofen. Blood cultures reveal no growth. On 10/08/2019 and seeing the patient for follow-up. The patient is essentially the same compared to yesterday. Chest x-ray may show some interval worsening of the breath and pulmonary infiltrates mainly in the lung peripheries. Nevertheless the patient remains on high flow oxygen 10 L per minute nasal cannula. Unable to wean it down any further. He remains on Plaquenil. He remains on zinc sulfate. He is still episodically spiking fever with a temperature 102.4. He has a LDH level of 1087. CPK was at 194. Pro calcitonin level was low. Covid 19 analysis came back positive. The patient has no headache. No altered mentation. No chest pain. No nausea. No vomiting. No abdominal pain. No other significant events overnight. His cough is not aggressive and it's minimal at this point in time. On 10/09/2019, the patient is still holding on his own and he remains stable with his FiO2 is ranging between 8 present 10 L. Throughout the evening, he was on 10 L of oxygen and the patient was maintaining her pulse ox of around 90-93% and this morning he seems to be slightly more improved and he was weaned down to 8 L and I'm hoping to cut him down to 6 L at a later stage. He is still coughing. His cough is dry. Some soreness in his chest when he is coughing. He is afebrile. He is hemodynamically stable. IV Solu-Medrol was also started yesterday and the patient received 60 mg IV push every 12 hours. Repeat chest x-ray from today shows stable peripheral pulmonary infiltrates with groundglass/interstitial changes more so in the lower lobes bilaterally. He is still feeling sick. He is feeling weak. He is complaining of some achiness and soreness. His LDH level is 1073. His C-reactive protein is 71. His EF function is stable with a creatinine of 0.57. The rest of the electrodes are al l within normal acceptable ranges. He d-dimer is still elevated at 1.2 which is slightly higher compared to the earlier measurements few days back. No nausea. No vomiting. No diarrhea. No altered mentation. He has checked them positive for Covid 19 infection. Objective - Vital Signs Vital signs: Vital Signs Temp 98.6 F 10/09/19 12:00 Pulse 76 10/09/19 12:00 Resp 15 10/09/19 12:00 BP 115/71 10/09/19 12:00 Pulse Ox 95 10/09/19 12:00 Intake & Output 10/08/19 10/09/19 10/09/19 18:59 06:59 18:59 Intake Total 1300 1375 500 Output Total 1055 2930 995 Balance 245 -1555 -495 Weight 115.7 kg Intake: IV 600 625 300 Sodium Chloride 0.9% 1, 550 575 300 000 ml @ 50 mls/hr IV . Q20H [facility] Rx#:[id number] cefTRIAXone 1 gm In 50 50 Sodium Chloride 0.9% 50 ml @ 100 mls/hr IVPB Q24H [facility] Rx#:[id number] Oral 700 250 200 Tube Feeding 500 Output: Urine 1055 2930 995 Other: Voiding Method Indwelling Catheter Indwelling Catheter Indwelling Catheter - Exam Gen. appearance A very pleasant 69-year-old gentleman, on 8 L high flow oxygen, up in a chair at the bedside, in mild respiratory distress. He is still having episodes of cough Head exam was generally normal. There was no scleral icterus or corneal arcus. Mucous membranes were moist. Neck was supple and without jugular venous distension, thyromegaly, or carotid bruits. Carotids were easily palpable bilaterally. There was no adenopathy. Lungs sounds are diminished along with that there is some few crackles in lung bases bilaterally. Cardiac exam revealed the PMI to be normally situated and sized. The rhythm was regular and no extrasystoles were noted during several minutes of auscultation. The first and second heart sounds were normal and physiologic splitting of the second heart sound was noted. There were no murmurs, rubs, clicks, or gallops. Abdominal exam revealed normal bowel sounds. The abdomen was soft, non-tender, and without masses, organomegaly, or appreciable enlargement of the abdominal aorta. Examination of the extremities revealed easily palpable radial, femoral and pedal pulses. There was no cyanosis, clubbing or edema. Examination of the skin revealed no evidence of significant rashes, suspicious appearing nevi or other concerning lesions. Neurologically awake and alert and there is no focal neurological deficits. - Labs CBC & Chem 7: 10/09/19 05:00 10/09/19 05:00 Labs: Abnormal Lab Results - Last 24 Hours (Table) 10/09/19 10/09/19 10/09/19 Range/Units 05:00 05:00 05:00 Lymphocytes # 0.4 L (1.0-4.8) k/uL D-Dimer 1.22 H (<0.60) mg/L FEU Creatinine 0.57 L (0.66-1.25) mg/dL Glucose 158 H (74-99) mg/dL Calcium 7.9 L (8.4-10.2) mg/dL Lactate Dehydrogenase 1073 H (313-618) U/L C-Reactive Protein 71.5 H (<10.0) mg/L Microbiology - Last 24 Hours (Table) 10/05/19 23:30 Blood Culture - Preliminary Blood No Growth after 72 hours Assessment and Plan Plan: 1 acute Covid 19 pneumonia with bilateral interstitial pneumonia with diffuse peripheral lower lobe predominance groundglass changes The patient has elevation in the LDH, d-dimer and C-reactive protein. procalcitonin level is low. Influenza screen was negative. Troponin is negative. This morning, the patient was weaned down to 8 L and I'm hoping to cut him down to 6 L as long as his pulse ox remained above 92%. Chest x-ray shows stable findings. He is afebrile. He is hemodynamically stable. Still symptomatic from his Covid 19 infection.. 2 acute hypoxic respiratory failure secondary to above, still on 8 L of oxygen by nasal cannula. 3 mild thrombocytopenia secondary to above, slightly improved on today's evaluation and the platelet count continues to improve. 4 hypertension 5 hyperlipidemia 6 obstructive sleep apnea 7 BPH Plan Continue Plaquenil 200 mg twice a day per protocol. IV Solu-Medrol 60 mg every 12 hours for the next 3 days Oxygen flow at 8 L and possibly cut him down as long as his saturations allow Continue antihypertensive medication and his blood pressure is under adequate control for now Guaifenesin with codeine for cough suppression Monitor overall pulmonary status very closely. High likelihood that the patient may further decompensated and for that reason he needs to be monitored in intensive care unit. We'll continue to follow.
[2019-10-09] MEDS: guaiFENesin-Coden 100-10MG/5ML 10 ML CUP PO PRN ×2 (17:09→23:20)
--- NOTE | 2019-10-09 17:22 | PN ---
PROGRESS NOTE DATE OF SERVICE: 10/09/2019 REASON FOR FOLLOWUP: Acute COVID-19 pneumonia. INTERVAL HISTORY: The patient is currently afebrile. The patient is breathing slightly comfortably. Denies having any chest pain. He did have some cough though decreased intensity. No nausea, no vomiting. No abdominal pain, no diarrhea. PHYSICAL EXAMINATION: Blood pressure is 126/81 with a pulse of 56, temperature 98.2. He is 98% on 6 L nasal cannula. General description is an elderly male, up in the chair in no distress. RESPIRATORY SYSTEM: Unlabored breathing, decreased intensity of breath sounds. No wheeze. HEART: S1, S2. Regular rate and rhythm. ABDOMEN: Soft, no tenderness. LABS: Hemoglobin is 14.2, white count of 5.9. BUN of 12, creatinine 0.57. Electrolytes have been normal. LDH slowly tracking down. CRP 71.5. DIAGNOSTIC IMPRESSION AND PLAN: Patient with acute COVID-19 pneumonia. Patient is currently covered with Plaquenil, zinc and supportive treatment and will monitor clinical course closely. MMODL / IJN: [id number] /
[2019-10-09] MEDS: amLODIPine 5 MG TAB PO SCH (21:16)
[2019-10-09] MEDS: GABAPENTIN 300 MG CAP PO SCH (21:16)
[2019-10-09] MEDS: SODIUM CHLORIDE 0.9% 1,000 ML IV SCH (22:00)
[2019-10-10 04:44] LABS: Basophils % (A) 0 %; Eosinophils % (A) 0 %; HCT 40.2 % (39.0-53.0); HGB 13.4 gm/dL (13.0-17.5); Lymphocytes # (A) 0.5 k/uL (1.0-4.8); Lymphocytes % (A) 5 %; MCH 30.9 pg (25.0-35.0); MCHC 33.4 g/dL (31.0-37.0); MCV 92.4 fL (80.0-100.0); Monocytes # (A) 0.3 k/uL (0-1.0); Monocytes % (A) 2 %; Neutrophils # (A) 10.6 k/uL (1.3-7.7); Neutrophils % (A) 92 %; Platelet Count 223 k/uL (150-450); RBC 4.35 m/uL (4.30-5.90); RDW 12.6 % (11.5-15.5); WBC 11.6 k/uL (3.8-10.6)
[2019-10-10 04:58] LABS: African American GFR (CKD) >90 (>60 ml/min/1.73 sqM); Anion Gap 3 mmol/L; Blood Urea Nitrogen 16 mg/dL (9-20); Calcium 7.8 mg/dL (8.4-10.2); Carbon Dioxide 30 mmol/L (22-30); Chloride 104 mmol/L (98-107); Glucose 162 mg/dL (74-99); Non-African American GFR(CKD) >90 (>60 ml/min/1.73 sqM); Potassium 3.8 mmol/L (3.5-5.1); Sodium 137 mmol/L (137-145)
--- NOTE | 2019-10-10 06:52 | XR ---
EXAMINATION TYPE: XR chest 1V portable DATE OF EXAM: 10/10/2019 HISTORY: pneumonia. REFERENCE: Previous study dated 10/09/2019. FINDINGS: Bilateral peripheral infiltrates persist. Heart size upper limits of normal. There is minim al blunting of both CP angles and I could not exclude small effusions. The overall appearance is unch anged. IMPRESSION: NO SIGNIFICANT INTERVAL CHANGE IN THE APPEARANCE OF THE CHEST.
[2019-10-10] MEDS ORDERED: POTASSIUM CHLORIDE ER 20 MEQ TAB.ER PO SCH (07:00)
[2019-10-10] MEDS: methylPREDNISolone SOD SUCCI 125 MG/2 ML VIAL IV SCH ×2 (08:06→21:24)
[2019-10-10] MEDS: HEPARIN SODIUM,PORCINE 5,000 UNIT/ML 1 ML VIAL SQ SCH ×3 (08:06→23:30)
[2019-10-10] MEDS: LOSARTAN 50 MG TAB PO SCH (08:07)
[2019-10-10] MEDS: TAMSULOSIN 0.4 MG CAP.ER.24H PO SCH (08:07)
[2019-10-10] MEDS: HYDROXYCHLOROQUINE SULFATE 200 MG TAB PO SCH ×2 (08:07→21:32)
[2019-10-10] MEDS: PRAVASTATIN SODIUM 40 MG TAB PO SCH (08:07)
[2019-10-10] MEDS: PANTOPRAZOLE 40 MG TABLET PO SCH (08:07)
[2019-10-10] MEDS: ZINC SULFATE 220 MG CAP PO SCH (08:07)
[2019-10-10] MEDS: SODIUM CHLORIDE 0.9% 1,000 ML IV SCH (09:59)
--- NOTE | 2019-10-10 13:16 | P.PN ---
Subjective Progress Note Date: 10/10/19 69-year-old male patient admitted to the hospital because of cough and shortness of breath and fever with a very high suspicious for a COVID 19 pneumonia. The patient reports traveling to [place] however he stated a friend's house and this was by the end of August and he drove back to [place]. Denies having any sick contacts. His had similar respiratory symptoms. In the emergency department, the patient was found to be hypoxic and the patient was started on 2 L of oxygen by nasal cannula. Chest x-ray showed some mild interstitial infiltrates bilaterally along with some segmental atelectatic changes in lung bases. His influenza screen was negative. His white cell count was at 5.7. His plated count was 123 which was low. D-dimer was 0.83. He had an LDH of 1095. He had a CPK of 194. C-reactive protein was 33.8. ProBNP level was 183. The pro calcitonin level was 0.05. The patient had some difficulty breathing and on with that he admitted some change in the taste sensation and he was having headache some diffuse body aches. He denied having and diarrhea. This morning, he became more hypoxic. The blood. This was done on 65% FiO2 showed a pH of 7.46 with a pCO2 of 38 and pO2 of 96. The patient was placed on 6 L of oxygen by nasal cannula and later on to 8 L and the patient got chest into the intensive care unit. His resting comfortably in bed. His respiratory rate is between 18 and 24. No significant tachycardia. The CAT scan of the chest was done and showed peripheral groundglass changes most on the lung bases and the findings are typical of Covid 19 infection. The patient also has some enlarged mediastinal lymphadenopathy. No evidence of any pulmonary embolism for now. The patient is seen today 10/07/2019 in follow-up in the intensive care unit. He is awake and alert. He is sitting up in a chair at the bedside. He is still quite short of breath. Continues with a dry nonproductive cough. Still requiring 10 L high flow nasal cannula to maintain O2 saturations in the 90s. He is currently afebrile. Hemodynamically stable. He is feeling about the same as compared to yesterday. No better but no worse presently. White count 6.9. Hemoglobin 13.6. Platelet count 122,000. Lymphocytes 0.8. Sodium 135. Potassium 3.5. Creatinine 0.70. Troponin 0.032. He remains on ceftriaxone, Plaquenil. Azithromycin was discontinued. Zinc was added. Discontinued ibuprofen. Blood cultures reveal no growth. On 10/08/2019 and seeing the patient for follow-up. The patient is essentially the same compared to yesterday. Chest x-ray may show some interval worsening of the breath and pulmonary infiltrates mainly in the lung peripheries. Nevertheless the patient remains on high flow oxygen 10 L per minute nasal cannula. Unable to wean it down any further. He remains on Plaquenil. He remains on zinc sulfate. He is still episodically spiking fever with a temperature 102.4. He has a LDH level of 1087. CPK was at 194. Pro calcitonin level was low. Covid 19 analysis came back positive. The patient has no headache. No altered mentation. No chest pain. No nausea. No vomiting. No abdominal pain. No other significant events overnight. His cough is not aggressive and it's minimal at this point in time. On 10/09/2019, the patient is still holding on his own and he remains stable with his FiO2 is ranging between 8 present 10 L. Throughout the evening, he was on 10 L of oxygen and the patient was maintaining her pulse ox of around 90-93% and this morning he seems to be slightly more improved and he was weaned down to 8 L and I'm hoping to cut him down to 6 L at a later stage. He is still coughing. His cough is dry. Some soreness in his chest when he is coughing. He is afebrile. He is hemodynamically stable. IV Solu-Medrol was also started yesterday and the patient received 60 mg IV push every 12 hours. Repeat chest x-ray from today shows stable peripheral pulmonary infiltrates with groundglass/interstitial changes more so in the lower lobes bilaterally. He is still feeling sick. He is feeling weak. He is complaining of some achiness and soreness. His LDH level is 1073. His C-reactive protein is 71. His EF function is stable with a creatinine of 0.57. The rest of the electrodes are al l within normal acceptable ranges. He d-dimer is still elevated at 1.2 which is slightly higher compared to the earlier measurements few days back. No nausea. No vomiting. No diarrhea. No altered mentation. He has checked them positive for Covid 19 infection. On 10/10/2019 the patient remains on 8 L of oxygen by nasal cannula. No new complaints. Chest x-ray findings are essentially stable. Cough has subsided. He is afebrile for now. I was able to cut him down further to 60 Zaroxolyn by nasal cannula. Otherwise, the rest of the blood work is all stable. The patient's CRP level from yesterday was 71 which was higher compared to the earlier evaluation and his LDH level was 1073. He remains on Plaquenil. He remains on zinc sulfate. He remains on IV Rocephin. He is also on IV Solu- Medrol 60 mg every 12 hours that was started on 10/08/2019. This will be continued for the next 3-7 days. No other significant events otherwise for now. The patient is calm and comfortable. No altered mentation. No angina. Objective - Vital Signs Vital signs: Vital Signs Temp 98.7 F 10/10/19 08:00 Pulse 57 L 10/10/19 11:00 Resp 22 10/10/19 11:35 BP 113/72 10/10/19 11:00 Pulse Ox 94 L 10/10/19 11:00 Intake & Output 10/09/19 10/10/19 10/10/19 18:59 06:59 18:59 Intake Total 1000 1175 370 Output Total 1370 1361 325 Balance -370 -186 45 Weight 114.3 kg Intake: IV 600 625 250 Sodium Chloride 0.9% 1, 600 575 250 000 ml @ 50 mls/hr IV . Q20H [facility] Rx#:[id number] cefTRIAXone 1 gm In 50 Sodium Chloride 0.9% 50 ml @ 100 mls/hr IVPB Q24H [facility] Rx#:[id number] Oral 400 550 120 Output: Urine 1370 1361 325 Other: Voiding Method Indwelling Catheter Indwelling Catheter Urinal - Exam Gen. appearance A very pleasant 69-year-old gentleman, on 8 L high flow oxygen, up in a chair at the bedside, in mild respiratory distress. He is still having episodes of cough and his cough has subsided on today's evaluation. I was able to wean him down to 6 L of oxygen by nasal cannula. Head exam was generally normal. There was no scleral icterus or corneal arcus. Mucous membranes were moist. Neck was supple and without jugular venous distension, thyromegaly, or carotid bruits. Carotids were easily palpable bilaterally. There was no adenopathy. Lungs sounds are diminished along with that there is some few crackles in lung bases bilaterally. Cardiac exam revealed the PMI to be normally situated and sized. The rhythm was regular and no extrasystoles were noted during several minutes of auscultation. The first and second heart sounds were normal and physiologic splitting of the second heart sound was noted. There were no murmurs, rubs, clicks, or gallops. Abdominal exam revealed normal bowel sounds. The abdomen was soft, non-tender, and without masses, organomegaly, or appreciable enlargement of the abdominal aorta. Examination of the extremities revealed easily palpable radial, femoral and pedal pulses. There was no cyanosis, clubbing or edema. Examination of the skin revealed no evidence of significant rashes, suspicious appearing nevi or other concerning lesions. Neurologically awake and alert and there is no focal neurological deficits. - Labs CBC & Chem 7: 10/10/19 04:15 10/10/19 04:15 Labs: Abnormal Lab Results - Last 24 Hours (Table) 10/10/19 10/10/19 Range/Units 04:15 04:15 WBC 11.6 H (3.8-10.6) k/uL Neutrophils # 10.6 H (1.3-7.7) k/uL Lymphocytes # 0.5 L (1.0-4.8) k/uL Creatinine 0.56 L (0.66-1.25) mg/dL Glucose 162 H (74-99) mg/dL Calcium 7.8 L (8.4-10.2) mg/dL Microbiology - Last 24 Hours (Table) 10/05/19 23:30 Blood Culture - Preliminary Blood No Growth after 96 hours Assessment and Plan Plan: 1 acute Covid 19 pneumonia with bilateral interstitial pneumonia with diffuse peripheral lower lobe predominance groundglass changes The patient has elevation in the LDH, d-dimer and C-reactive protein. procalcitonin level is low. Influenza screen was negative. Troponin is negative. This morning, the patient was weaned down to 8 L and furthermore I cut him down to 60s of oxygen by nasal cannula. I'm hoping that he will hold his oxygenation over the next 24 hours. Chest x-ray findings are essentially stable for now. No new issues on him. He is afebrile. 2 acute hypoxic respiratory failure secondary to above, still on 6 L of oxygen by nasal cannula. 3 mild thrombocytopenia secondary to above, slightly improved on today's evaluation and the platelet count continues to improve. 4 hypertension 5 hyperlipidemia 6 obstructive sleep apnea 7 BPH Plan Continue Plaquenil 200 mg twice a day per protocol. IV Solu-Medrol 60 mg every 12 hours for the next 3 days-7 days Oxygen flow at 6 L and possibly cut him down as long as his saturations allow Continue antihypertensive medication and his blood pressure is under adequate control for now Guaifenesin with codeine for cough suppression Monitor overall pulmonary status very closely. Clinically stable We'll keep in ICU for another 24 hours We'll continue to follow.
--- NOTE | 2019-10-10 16:58 | P.PN ---
Subjective Progress Note Date: 10/10/19 Principal diagnosis: COVID 19 Pneumonia Patient seen and examined at bedside. Patient admits that he continues to be short of breath and continues to have a persistent cough. Patient remains on 8L of nasal cannula with 94% oxygen saturation. Patient is currently afebrile. Patient denies chest pain. Patient further denies nausea, vomiting, diarrhea, or constipation. Chest x-ray today reveals no significant changes. Objective - Vital Signs Vital signs: Vital Signs Temp 98 F 10/10/19 16:00 Pulse 64 10/10/19 16:00 Resp 13 10/10/19 16:00 BP 113/69 10/10/19 16:00 Pulse Ox 94 L 10/10/19 16:00 Intake & Output 10/09/19 10/10/19 10/10/19 18:59 06:59 18:59 Intake Total 1000 1175 860 Output Total 1370 1361 325 Balance -370 -186 535 Weight 114.3 kg Intake: IV 600 625 500 Sodium Chloride 0.9% 1, 600 575 500 000 ml @ 50 mls/hr IV . Q20H [facility] Rx#:[id number] cefTRIAXone 1 gm In 50 Sodium Chloride 0.9% 50 ml @ 100 mls/hr IVPB Q24H [facility] Rx#:[id number] Oral 400 550 360 Output: Urine 1370 1361 325 Other: Voiding Method Indwelling Catheter Indwelling Catheter Urinal - Exam General: [non toxic], [no distress], [appears at stated age] Derm: [warm], [dry] Head: [atraumatic], [normocephalic], [symmetric] Eyes: [EOMI], [no lid lag], [anicteric sclera] Mouth: [no lip lesion], [mucus membranes moist] Cardiovascular: [S1S2 reg], [no murmur], [positive posterior tibial pulse bilateral], Lungs: [diminished breath sounds b/l], [scattered rhonchi, no rales] , [no accessory muscle use] Abdominal: [soft], [ nontender to palpation], [no guarding], [no appreciable organomegaly] Ext: [no gross muscle atrophy], [no edema], [no contractures] Neuro: [ CN II-XI grossly intact], [no focal neuro deficits] Psych: [Alert], [oriented], [appropriate affect] - Labs CBC & Chem 7: 10/10/19 04:15 10/10/19 04:15 Labs: Abnormal Lab Results - Last 24 Hours (Table) 10/10/19 10/10/19 Range/Units 04:15 04:15 WBC 11.6 H (3.8-10.6) k/uL Neutrophils # 10.6 H (1.3-7.7) k/uL Lymphocytes # 0.5 L (1.0-4.8) k/uL Creatinine 0.56 L (0.66-1.25) mg/dL Glucose 162 H (74-99) mg/dL Calcium 7.8 L (8.4-10.2) mg/dL Microbiology - Last 24 Hours (Table) 10/05/19 23:30 Blood Culture - Preliminary Blood No Growth after 96 hours Assessment and Plan Assessment: COVID 19 pneumonia with acute respiratory disease * Continue current treatment protocol pulmonary and ID recommendations appreciated * Covid positive * Initiated on steroids by pulmonary * continue zinc, Plaquenil, Rocephin Acute respiratory failure with hypoxemia * Secondary to pneumonia secondary to Covid-19 * Continue supplemental oxygen currently on 8 L by nasal cannula * Pulmonary consulted and is following * Chest x-ray showing no interval changes Sepsis * Secondary to a viral pneumonia, pro-calcitonin was negative, Covid 19 positive * Continue Rocephin and Plaquenil * ID consulted and is following Essential hypertension * Blood pressure stable * Continue Norvasc and ARB Disposition * Continue to monitor patient closely low threshold for intubation * Continue current isolation precautions
[2019-10-10] MEDS: guaiFENesin-Coden 100-10MG/5ML 10 ML CUP PO PRN ×2 (17:10→23:29)
[2019-10-10 19:39] LABS: LD Isoenzymes 1 19 % (19-38); LD Isoenzymes 2 31 % (30-43); LD Isoenzymes 3 27 % (16-26); LD Isoenzymes 4 14 % (3-12); LD Isoenzymes 5 9 % (3-14); Lactacte Dehydrogenase(LD) ISO 317 U/L (120-250)
[2019-10-10] MEDS: amLODIPine 5 MG TAB PO SCH (21:24)
[2019-10-10] MEDS: GABAPENTIN 300 MG CAP PO SCH (21:24)
[2019-10-11] MEDS: SODIUM CHLORIDE 0.9% 1,000 ML IV SCH ×2 (04:37→23:32)
[2019-10-11 05:58] LABS: African American GFR (CKD) >90 (>60 ml/min/1.73 sqM); Anion Gap 2 mmol/L; Blood Urea Nitrogen 17 mg/dL (9-20); Calcium 7.7 mg/dL (8.4-10.2); Carbon Dioxide 31 mmol/L (22-30); Chloride 104 mmol/L (98-107); Glucose 167 mg/dL (74-99); Non-African American GFR(CKD) >90 (>60 ml/min/1.73 sqM); Sodium 137 mmol/L (137-145)
[2019-10-11 06:28] LABS: Basophils % (A) 0 %; Eosinophils % (A) 0 %; HCT 40.3 % (39.0-53.0); HGB 13.5 gm/dL (13.0-17.5); Lymphocytes # (A) 0.5 k/uL (1.0-4.8); Lymphocytes % (A) 4 %; MCH 31.2 pg (25.0-35.0); MCHC 33.6 g/dL (31.0-37.0); MCV 92.9 fL (80.0-100.0); Mean Platelet Volume 9.3; Monocytes # (A) 0.4 k/uL (0-1.0); Monocytes % (A) 4 %; Neutrophils % (A) 91 %; Platelet Count 247 k/uL (150-450); RBC 4.34 m/uL (4.30-5.90); RDW 12.5 % (11.5-15.5)
--- NOTE | 2019-10-11 07:58 | PN ---
PROGRESS NOTE DATE OF SERVICE: 10/10/2019 REASON FOR FOLLOWUP: Acute COVID-19 pneumonia. INTERVAL HISTORY: The patient is currently afebrile. He has been breathing slightly comfortably. He denies having any chest pain. Still has some cough, not bringing up any sputum. No nausea. No vomiting. No abdominal pain or diarrhea. PHYSICAL EXAMINATION: Blood pressure 124/60, pulse of 70, temperature 98. He is 94% on 8 L. General description is an elderly male lying in bed in no distress. Respiratory system: Unlabored breathing, decreased intensity of breath sounds. No wheeze. Heart S1, S2. Regular rate and rhythm. ABDOMEN: Soft, no tenderness. LABS: Hemoglobin 13.4, white count 11.6, BUN of 16, creatinine 0.56. DIAGNOSTIC IMPRESSION AND PLAN: Patient with acute Covid-19 pneumonia. The patient has completed his 5-day course of Plaquenil. Zinc is on board to continue. Started on steroids. Concern for possible developing ARDS. To continue to monitor clinical course closely. Continue supportive care. MMODL / IJN: [id number] /
[2019-10-11] MEDS: HEPARIN SODIUM,PORCINE 5,000 UNIT/ML 1 ML VIAL SQ SCH ×3 (08:49→23:33)
[2019-10-11] MEDS: PRAVASTATIN SODIUM 40 MG TAB PO SCH (08:50)
[2019-10-11] MEDS: methylPREDNISolone SOD SUCCI 125 MG/2 ML VIAL IV SCH ×2 (08:50→20:13)
[2019-10-11] MEDS: TAMSULOSIN 0.4 MG CAP.ER.24H PO SCH (08:50)
[2019-10-11] MEDS: ZINC SULFATE 220 MG CAP PO SCH (08:50)
[2019-10-11] MEDS: PANTOPRAZOLE 40 MG TABLET PO SCH (08:50)
[2019-10-11] MEDS: LOSARTAN 50 MG TAB PO SCH (08:52)
--- NOTE | 2019-10-11 09:11 | XR ---
EXAMINATION TYPE: XR chest 1V DATE OF EXAM: 10/11/2019 HISTORY: COVID. REFERENCE: Previous study dated 10/10/2019. FINDINGS: Bilateral peripheral infiltrates persist. These may have improved slightly. The heart is mi ldly enlarged. We be difficult to exclude a small left effusion. IMPRESSION: 1. SLIGHT IMPROVEMENT IN THE APPEARANCE THE CHEST. 2. IN THE PROPER CLINICAL CIRCUMSTANCE CONSIDER COVID 19 INFECTION.
[2019-10-11 09:17] LABS: C Reactive Protein 23.2 mg/L (<10.0)
[2019-10-11] MEDS: guaiFENesin-Coden 100-10MG/5ML 10 ML CUP PO PRN (09:25)
--- NOTE | 2019-10-11 13:18 | P.PN ---
Subjective Progress Note Date: 10/11/19 69-year-old male patient admitted to the hospital because of cough and shortness of breath and fever with a very high suspicious for a COVID 19 pneumonia. The patient reports traveling to [place] however he stated a friend's house and this was by the end of August and he drove back to [place]. Denies having any sick contacts. His had similar respiratory symptoms. In the emergency department, the patient was found to be hypoxic and the patient was started on 2 L of oxygen by nasal cannula. Chest x-ray showed some mild interstitial infiltrates bilaterally along with some segmental atelectatic changes in lung bases. His influenza screen was negative. His white cell count was at 5.7. His plated count was 123 which was low. D-dimer was 0.83. He had an LDH of 1095. He had a CPK of 194. C-reactive protein was 33.8. ProBNP level was 183. The pro calcitonin level was 0.05. The patient had some difficulty breathing and on with that he admitted some change in the taste sensation and he was having headache some diffuse body aches. He denied having and diarrhea. This morning, he became more hypoxic. The blood. This was done on 65% FiO2 showed a pH of 7.46 with a pCO2 of 38 and pO2 of 96. The patient was placed on 6 L of oxygen by nasal cannula and later on to 8 L and the patient got chest into the intensive care unit. His resting comfortably in bed. His respiratory rate is between 18 and 24. No significant tachycardia. The CAT scan of the chest was done and showed peripheral groundglass changes most on the lung bases and the findings are typical of Covid 19 infection. The patient also has some enlarged mediastinal lymphadenopathy. No evidence of any pulmonary embolism for now. The patient is seen today 10/07/2019 in follow-up in the intensive care unit. He is awake and alert. He is sitting up in a chair at the bedside. He is still quite short of breath. Continues with a dry nonproductive cough. Still requiring 10 L high flow nasal cannula to maintain O2 saturations in the 90s. He is currently afebrile. Hemodynamically stable. He is feeling about the same as compared to yesterday. No better but no worse presently. White count 6.9. Hemoglobin 13.6. Platelet count 122,000. Lymphocytes 0.8. Sodium 135. Potassium 3.5. Creatinine 0.70. Troponin 0.032. He remains on ceftriaxone, Plaquenil. Azithromycin was discontinued. Zinc was added. Discontinued ibuprofen. Blood cultures reveal no growth. On 10/08/2019 and seeing the patient for follow-up. The patient is essentially the same compared to yesterday. Chest x-ray may show some interval worsening of the breath and pulmonary infiltrates mainly in the lung peripheries. Nevertheless the patient remains on high flow oxygen 10 L per minute nasal cannula. Unable to wean it down any further. He remains on Plaquenil. He remains on zinc sulfate. He is still episodically spiking fever with a temperature 102.4. He has a LDH level of 1087. CPK was at 194. Pro calcitonin level was low. Covid 19 analysis came back positive. The patient has no headache. No altered mentation. No chest pain. No nausea. No vomiting. No abdominal pain. No other significant events overnight. His cough is not aggressive and it's minimal at this point in time. On 10/09/2019, the patient is still holding on his own and he remains stable with his FiO2 is ranging between 8 present 10 L. Throughout the evening, he was on 10 L of oxygen and the patient was maintaining her pulse ox of around 90-93% and this morning he seems to be slightly more improved and he was weaned down to 8 L and I'm hoping to cut him down to 6 L at a later stage. He is still coughing. His cough is dry. Some soreness in his chest when he is coughing. He is afebrile. He is hemodynamically stable. IV Solu-Medrol was also started yesterday and the patient received 60 mg IV push every 12 hours. Repeat chest x-ray from today shows stable peripheral pulmonary infiltrates with groundglass/interstitial changes more so in the lower lobes bilaterally. He is still feeling sick. He is feeling weak. He is complaining of some achiness and soreness. His LDH level is 1073. His C-reactive protein is 71. His EF function is stable with a creatinine of 0.57. The rest of the electrodes are al l within normal acceptable ranges. He d-dimer is still elevated at 1.2 which is slightly higher compared to the earlier measurements few days back. No nausea. No vomiting. No diarrhea. No altered mentation. He has checked them positive for Covid 19 infection. On 10/10/2019 the patient remains on 8 L of oxygen by nasal cannula. No new complaints. Chest x-ray findings are essentially stable. Cough has subsided. He is afebrile for now. I was able to cut him down further to 60 Zaroxolyn by nasal cannula. Otherwise, the rest of the blood work is all stable. The patient's CRP level from yesterday was 71 which was higher compared to the earlier evaluation and his LDH level was 1073. He remains on Plaquenil. He remains on zinc sulfate. He remains on IV Rocephin. He is also on IV Solu- Medrol 60 mg every 12 hours that was started on 10/08/2019. This will be continued for the next 3-7 days. No other significant events otherwise for now. The patient is calm and comfortable. No altered mentation. No angina. On 10/11/2019 the patient remains on oxygen which is ranging between the 16th is an 8 L. The patient has limited reserve. Whenever he coughs or whenever he does limited amount of activity desaturates. Chest x-ray showing some limited improvement in the peripheral pulmonary foot is was noted earlier. This was quite encouraging. D-dimer remains elevated at 1.36. The patient's LDH is declining down to 958. C-reactive protein is down to 23.2. He is afebrile for now. He is hemodynamically stable. He was provided an incentive spirometer. No other significant events overnight. He remains on IV Solu Medrol 60 mg every 12 hours and this was started on 10/08/2019 to complete a total of 3-7 7 day course based on the patient's clinical response. No altered mentation. He is feeling weak. He is feeling fatigued and tired. No diarrhea. No nausea. No vomiting. No altered mentation. Objective - Vital Signs Vital signs: Vital Signs Temp 97.9 F 10/11/19 12:00 Pulse 63 10/11/19 13:00 Resp 22 10/11/19 13:00 BP 104/74 10/11/19 13:00 Pulse Ox 97 10/11/19 13:00 Intake & Output 10/10/19 10/11/19 10/11/19 18:59 06:59 18:59 Intake Total 1370 925 830 Output Total 575 1950 1360 Balance 795 -1025 -530 Weight 104 kg Intake: IV 650 575 350 Sodium Chloride 0.9% 1, 650 525 350 000 ml @ 50 mls/hr IV . Q20H [facility] Rx#:[id number] cefTRIAXone 1 gm In 50 Sodium Chloride 0.9% 50 ml @ 100 mls/hr IVPB Q24H [facility] Rx#:[id number] Oral 720 350 480 Output: Urine 575 1950 1360 Other: Voiding Method Urinal Urinal - Exam Gen. appearance A very pleasant 69-year-old gentleman, on 6-8 L high flow oxygen, up in a chair at the bedside, in mild respiratory distress. He is still having episodes of cough and his cough has subsided on today's evaluation. Head exam was generally normal. There was no scleral icterus or corneal arcus. Mucous membranes were moist. Neck was supple and without jugular venous distension, thyromegaly, or carotid bruits. Carotids were easily palpable bilaterally. There was no adenopathy. Lungs sounds are diminished along with that there is some few crackles in lung bases bilaterally. Cardiac exam revealed the PMI to be normally situated and sized. The rhythm was regular and no extrasystoles were noted during several minutes of auscultation. The first and second heart sounds were normal and physiologic splitting of the second heart sound was noted. There were no murmurs, rubs, clicks, or gallops. Abdominal exam revealed normal bowel sounds. The abdomen was soft, non-tender, and without masses, organomegaly, or appreciable enlargement of the abdominal aorta. Examination of the extremities revealed easily palpable radial, femoral and pedal pulses. There was no cyanosis, clubbing or edema. Examination of the skin revealed no evidence of significant rashes, suspicious appearing nevi or other concerning lesions. Neurologically awake and alert and there is no focal neurological deficits. - Labs CBC & Chem 7: 10/11/19 04:50 10/11/19 04:50 Labs: Abnormal Lab Results - Last 24 Hours (Table) 10/06/19 10/11/19 10/11/19 Range/Units 16:36 04:50 04:50 WBC 11.0 H (3.8-10.6) k/uL Neutrophils # 10.0 H (1.3-7.7) k/uL Lymphocytes # 0.5 L (1.0-4.8) k/uL D-Dimer (<0.60) mg/L FEU Carbon Dioxide 31 H (22-30) mmol/L Creatinine 0.55 L (0.66-1.25) mg/dL Glucose 167 H (74-99) mg/dL Calcium 7.7 L (8.4-10.2) mg/dL Lactate Dehydrogenase (313-618) U/L LD Isoenzymes 317 H (120-250) U/L LD 3 27 H (16-26) % LD 4 14 H (3-12) % C-Reactive Protein (<10.0) mg/L 10/11/19 10/11/19 Range/Units 04:50 09:14 WBC (3.8-10.6) k/uL Neutrophils # (1.3-7.7) k/uL Lymphocytes # (1.0-4.8) k/uL D-Dimer 1.36 H (<0.60) mg/L FEU Carbon Dioxide (22-30) mmol/L Creatinine (0.66-1.25) mg/dL Glucose (74-99) mg/dL Calcium (8.4-10.2) mg/dL Lactate Dehydrogenase 958 H (313-618) U/L LD Isoenzymes (120-250) U/L LD 3 (16-26) % LD 4 (3-12) % C-Reactive Protein 23.2 H (<10.0) mg/L Microbiology - Last 24 Hours (Table) 10/05/19 23:30 Blood Culture - Preliminary Blood No Growth after 120 hours Assessment and Plan Plan: 1 acute Covid 19 pneumonia with bilateral interstitial pneumonia with diffuse peripheral lower lobe predominance groundglass changes The patient has elevati on in the LDH, d-dimer and C-reactive protein. procalcitonin level is low. Influenza screen was negative. Troponin is negative. On today's evaluation, d- dimer is elevated at 1.36. LDH level and C-reactive protein are improving and the patient's chest x-ray showed limited improvement in the peripheral pulmonary infiltrates. Oxygenation is still unchanged and the patient has been ranging between 6 and 8 L per minute nasal cannula. 2 acute hypoxic respiratory failure secondary to above, still on 6-8 L of oxygen by nasal cannula. 3 mild thrombocytopenia secondary to above, slightly improved on today's evaluation and the platelet count continues to improve. 4 hypertension 5 hyperlipidemia 6 obstructive sleep apnea 7 BPH Plan Continue Plaquenil 200 mg twice a day per protocol. The patient completed a total of 5 days. I'm going to extend the treatment for an additional 5 days b ased on presence of active disease. IV Solu-Medrol 60 mg every 12 hours for the next 3 days-7 days Oxygen flow at 6-8 L and possibly cut him down as long as his saturations allow Continue antihypertensive medication and his blood pressure is under adequate control for now Guaifenesin with codeine for cough suppression Continue the use of incentive spirometer Monitor overall pulmonary status very closely. Clinically stable We'll keep in ICU for another 24 hours We'll continue to follow.
--- NOTE | 2019-10-11 15:12 | P.PN ---
Subjective Progress Note Date: 10/11/19 Principal diagnosis: COVID 19 pneumonia with acute hypoxic respiratory failure Patient seen and examined at bedside. Patient is sitting up comfortably in chair. Patient is currently on 6 L nasal cannula tolerating it better than yesterday. Patient does admit to exertional dyspnea and cough. Patient continues to be afebrile. Vitals within normal limits. Patient will likely be transferred to stepdown tomorrow if he continues to improve. Objective - Vital Signs Vital signs: Vital Signs Temp 97.9 F 10/11/19 12:00 Pulse 63 10/11/19 13:00 Resp 22 10/11/19 13:00 BP 104/74 10/11/19 13:00 Pulse Ox 97 10/11/19 13:00 Intake & Output 10/10/19 10/11/19 10/11/19 18:59 06:59 18:59 Intake Total 1370 925 830 Output Total 575 1950 1360 Balance 795 -1025 -530 Weight 104 kg Intake: IV 650 575 350 Sodium Chloride 0.9% 1, 650 525 350 000 ml @ 50 mls/hr IV . Q20H [facility] Rx#:[id number] cefTRIAXone 1 gm In 50 Sodium Chloride 0.9% 50 ml @ 100 mls/hr IVPB Q24H [facility] Rx#:[id number] Oral 720 350 480 Output: Urine 575 1950 1360 Other: Voiding Method Urinal Urinal - Exam General: [non toxic], [no distress], [appears at stated age] Derm: [warm], [dry] Head: [atraumatic], [normocephalic], [symmetric] Eyes: [EOMI], [no lid lag], [anicteric sclera] Mouth: [no lip lesion], [mucus membranes moist] Cardiovascular: [S1S2 reg], [no murmur], [positive posterior tibial pulse bilateral], Lungs: [Diminished breath sounds bilateral], [scattered rhonchi, no rales] , [no accessory muscle use] Abdominal: [soft], [ nontender to palpation], [no guarding], [no appreciable organomegaly] Ext: [no gross muscle atrophy], [no edema], [no contractures] Neuro: [ CN II-XI grossly intact], [no focal neuro deficits] Psych: [Alert], [oriented], [appropriate affect] - Labs CBC & Chem 7: 10/11/19 04:50 10/11/19 04:50 Labs: Abnormal Lab Results - Last 24 Hours (Table) 10/06/19 10/11/19 10/11/19 Range/Units 16:36 04:50 04:50 WBC 11.0 H (3.8-10.6) k/uL Neutrophils # 10.0 H (1.3-7.7) k/uL Lymphocytes # 0.5 L (1.0-4.8) k/uL D-Dimer (<0.60) mg/L FEU Carbon Dioxide 31 H (22-30) mmol/L Creatinine 0.55 L (0.66-1.25) mg/dL Glucose 167 H (74-99) mg/dL Calcium 7.7 L (8.4-10.2) mg/dL Lactate Dehydrogenase (313-618) U/L LD Isoenzymes 317 H (120-250) U/L LD 3 27 H (16-26) % LD 4 14 H (3-12) % C-Reactive Protein (<10.0) mg/L 10/11/19 10/11/19 Range/Units 04:50 09:14 WBC (3.8-10.6) k/uL Neutrophils # (1.3-7.7) k/uL Lymphocytes # (1.0-4.8) k/uL D-Dimer 1.36 H (<0.60) mg/L FEU Carbon Dioxide (22-30) mmol/L Creatinine (0.66-1.25) mg/dL Glucose (74-99) mg/dL Calcium (8.4-10.2) mg/dL Lactate Dehydrogenase 958 H (313-618) U/L LD Isoenzymes (120-250) U/L LD 3 (16-26) % LD 4 (3-12) % C-Reactive Protein 23.2 H (<10.0) mg/L Microbiology - Last 24 Hours (Table) 10/05/19 23:30 Blood Culture - Preliminary Blood No Growth after 120 hours Assessment and Plan Assessment: COVID 19 pneumonia with acute respiratory disease slowly improving * Continue current treatment protocol pulmonary and ID recommendations appreciated * Covid positive * on steroids by pulmonary * continue zinc, Plaquenil, Rocephin * Will likely be transferred to stepdown tomorrow Acute respiratory failure with hypoxemia * Secondary to pneumonia secondary to Covid-19 * Continue supplemental oxygen currently on 8 L by nasal cannula * Pulmonary consulted and is following * Chest x-ray showing SLIGHT IMPROVEMENT IN THE APPEARANCE OF THE CHEST. Sepsis * Secondary to a viral pneumonia, pro-calcitonin was negative, Covid 19 positive * Continue Rocephin and Plaquenil * ID consulted and is following Essential hypertension * Blood pressure stable * Continue Norvasc and ARB Disposition * Continue to monitor patient closely low threshold for intubation * Continue current isolation precautions
[2019-10-11] MEDS: HYDROXYCHLOROQUINE SULFATE 200 MG TAB PO SCH ×2 (15:18→20:30)
[2019-10-11] MEDS: GABAPENTIN 300 MG CAP PO SCH (20:14)
[2019-10-11] MEDS: amLODIPine 5 MG TAB PO SCH (20:14)
--- NOTE | 2019-10-11 21:18 | PN ---
PROGRESS NOTE DATE OF SERVICE: 10/11/2019 REASON FOR FOLLOWUP: Acute COVID-19 pneumonia. INTERVAL HISTORY: The patient is currently afebrile, has been breathing comfortably. Overall, FiO2 is down to 6 L nasal cannula. He denies having any chest pain. Did have some cough. No sputum. No nausea or vomiting, abdominal pain. No diarrhea. PHYSICAL EXAMINATION: Blood pressure 134/84 with a pulse of 72, temperature 98.7. He is 94% on 6 L nasal cannula. General description is an elderly male lying in bed in no distress. Respiratory system: Unlabored breathing, decreased intensity of breath sounds in the base. No wheeze. Heart S1, S2. Regular rate and rhythm. Abdomen soft. No tenderness. LABS: Hemoglobin 13.5, white count of 11. BUN of 78, creatinine 0.55, and LDH down to 958. CRP is down to 23.2. DIAGNOSTIC IMPRESSION AND PLAN: Patient with acute COVID-19 pneumonia. Patient at this time continued on the Plaquenil and zinc and respiratory support. Overall biochemical as well as neurological improvement and continue supportive care. MMODL / IJN: [id number] / MTDD
[2019-10-12 04:57] LABS: Basophils % (A) 0 %; Eosinophils % (A) 0 %; HCT 41.8 % (39.0-53.0); HGB 13.8 gm/dL (13.0-17.5); Lymphocytes # (A) 0.5 k/uL (1.0-4.8); Lymphocytes % (A) 5 %; MCH 30.7 pg (25.0-35.0); MCHC 32.9 g/dL (31.0-37.0); MCV 93.4 fL (80.0-100.0); Mean Platelet Volume 8.1; Monocytes # (A) 0.4 k/uL (0-1.0); Monocytes % (A) 4 %; Neutrophils # (A) 8.8 k/uL (1.3-7.7); Neutrophils % (A) 89 %; Platelet Count 258 k/uL (150-450); RBC 4.47 m/uL (4.30-5.90); RDW 12.6 % (11.5-15.5)
[2019-10-12 05:20] LABS: ALT 168 U/L (4-49); AST 135 U/L (17-59); African American GFR (CKD) >90 (>60 ml/min/1.73 sqM); Albumin 2.9 g/dL (3.5-5.0); Alkaline Phosphatase 58 U/L (38-126); Anion Gap 3 mmol/L; Blood Urea Nitrogen 15 mg/dL (9-20); C Reactive Protein 16.4 mg/L (<10.0); Calcium 7.8 mg/dL (8.4-10.2); Carbon Dioxide 31 mmol/L (22-30); Chloride 102 mmol/L (98-107); Creatine Kinase 48 U/L (55-170); Glucose 174 mg/dL (74-99); LDH 1153 U/L (313-618); Non-African American GFR(CKD) >90 (>60 ml/min/1.73 sqM); Potassium 4.1 mmol/L (3.5-5.1); Sodium 136 mmol/L (137-145); Total Bilirubin 0.7 mg/dL (0.2-1.3); Total Protein 5.9 g/dL (6.3-8.2)
--- NOTE | 2019-10-12 08:11 | XR ---
EXAMINATION TYPE: XR chest 1V portable DATE OF EXAM: 10/12/2019 COMPARISON: 10/11/2019 HISTORY: Shortness of breath TECHNIQUE: Single frontal view of the chest is obtained. FINDINGS: Stable bilateral peripherally oriented patchy opacities in comparison to the most recent c hest x-ray. Cardiomediastinal silhouette is enlarged. No sizable pneumothorax or pleural effusion. No acute osseous pathology. IMPRESSION: Stable peripherally oriented bilateral multifocal patchy opacities. COVID 19 related debora g damage/pneumonia should again be considered.
[2019-10-12] MEDS: LOSARTAN 50 MG TAB PO SCH (08:56)
[2019-10-12] MEDS: methylPREDNISolone SOD SUCCI 125 MG/2 ML VIAL IV SCH (08:56)
[2019-10-12] MEDS: HEPARIN SODIUM,PORCINE 5,000 UNIT/ML 1 ML VIAL SQ SCH ×2 (08:56→15:49)
[2019-10-12] MEDS: HYDROXYCHLOROQUINE SULFATE 200 MG TAB PO SCH ×2 (08:57→21:11)
[2019-10-12] MEDS: PRAVASTATIN SODIUM 40 MG TAB PO SCH (08:57)
[2019-10-12] MEDS: TAMSULOSIN 0.4 MG CAP.ER.24H PO SCH (08:57)
[2019-10-12] MEDS: PANTOPRAZOLE 40 MG TABLET PO SCH (08:57)
[2019-10-12] MEDS: ZINC SULFATE 220 MG CAP PO SCH (08:57)
[2019-10-12 12:42] LABS: Ferritin 700.6 ng/mL (22.0-322.0)
--- NOTE | 2019-10-12 13:07 | P.PN ---
Subjective Progress Note Date: 10/12/19 Principal diagnosis: Acute covid 19 pneumonia, and acute hypoxic respiratory failure secondary to pneumonia 69-year-old male patient admitted to the hospital because of cough and shortness of breath and fever with a very high suspicious for a COVID 19 pneumonia. The patient reports traveling to [place] however he stated a friend's house and this was by the end of August and he drove back to [place]. Denies having any sick contacts. His had similar respiratory symptoms. In the emergency department, the patient was found to be hypoxic and the patient was started on 2 L of oxygen by nasal cannula. Chest x-ray showed some mild interstitial infiltrates bilaterally along with some segmental atelectatic changes in lung bases. His influenza screen was negative. His white cell count was at 5.7. His plated count was 123 which was low. D-dimer was 0.83. He had an LDH of 1095. He had a CPK of 194. C-reactive protein was 33.8. ProBNP level was 183. The pro calcitonin level was 0.05. The patient had some difficulty breathing and on with that he admitted some change in the taste sensation and he was having headache some diffuse body aches. He denied having and diarrhea. This morning, he became more hypoxic. The blood. This was done on 65% FiO2 showed a pH of 7.46 with a pCO2 of 38 and pO2 of 96. The patient was placed on 6 L of oxygen by nasal cannula and later on to 8 L and the patient got chest into the intensive care unit. His resting comfortably in bed. His respiratory rate is between 18 and 24. No significant tachycardia. The CAT scan of the chest was done and showed peripheral groundglass changes most on the lung bases and the findings are typical of Covid 19 infection. The patient also has some enlarged mediastinal lymphadenopathy. No evidence of any pulmonary embolism for now. The patient is seen today 10/07/2019 in follow-up in the intensive care unit. He is awake and alert. He is sitting up in a chair at the bedside. He is still quite short of breath. Continues with a dry nonproductive cough. Still requi ring 10 L high flow nasal cannula to maintain O2 saturations in the 90s. He is currently afebrile. Hemodynamically stable. He is feeling about the same as compared to yesterday. No better but no worse presently. White count 6.9. Hemoglobin 13.6. Platelet count 122,000. Lymphocytes 0.8. Sodium 135. Potassium 3.5. Creatinine 0.70. Troponin 0.032. He remains on ceftriaxone, Plaquenil. Azithromycin was discontinued. Zinc was added. Discontinued ibuprofen. Blood cultures reveal no growth. On 10/08/2019 and seeing the patient for follow-up. The patient is essentially the same compared to yesterday. Chest x-ray may show some interval worsening of the breath and pulmonary infiltrates mainly in the lung peripheries. Nevertheless the patient remains on high flow oxygen 10 L per minute nasal cannula. Unable to wean it down any further. He remains on Plaquenil. He remains on zinc sulfate. He is still episodically spiking fever with a temperature 102.4. He has a LDH level of 1087. CPK was at 194. Pro calcitonin level was low. Covid 19 analysis came back positive. The patient has no headache. No altered mentation. No chest pain. No nausea. No vomiting. No abdominal pain. No other significant events overnight. His cough is not aggressive and it's minimal at this point in time. On 10/09/2019, the patient is still holding on his own and he remains stable w ith his FiO2 is ranging between 8 present 10 L. Throughout the evening, he was on 10 L of oxygen and the patient was maintaining her pulse ox of around 90-93% and this morning he seems to be slightly more improved and he was weaned down to 8 L and I'm hoping to cut him down to 6 L at a later stage. He is still coughing. His cough is dry. Some soreness in his chest when he is coughing. He is afebrile. He is hemodynamically stable. IV Solu-Medrol was also started yesterday and the patient received 60 mg IV push every 12 hours. Repeat chest x-ray from today shows stable peripheral pulmonary infiltrates with groundglass/interstitial changes more so in the lower lobes bilaterally. He is still feeling sick. He is feeling weak. He is complaining of some achiness and soreness. His LDH level is 1073. His C-reactive protein is 71. His EF function is stable with a creatinine of 0.57. The rest of the electrodes are all within normal acceptable ranges. He d-dimer is still elevated at 1.2 which is slightly higher compared to the earlier measurements few days back. No nausea. No vomiting. No diarrhea. No altered mentation. He has checked them positive for Covid 19 infection. On 10/10/2019 the patient remains on 8 L of oxygen by nasal cannula. No new complaints. Chest x-ray findings are essentially stable. Cough has subsided. He is afebrile for now. I was able to cut him down further to 60 Zaroxolyn by nasal cannula. Otherwise, the rest of the blood work is all stable. The patient's CRP level from yesterday was 71 which was higher compared to the earlier evaluation and his LDH level was 1073. He remains on Plaquenil. He remains on zinc sulfate. He remains on IV Rocephin. He is also on IV Solu- Medrol 60 mg every 12 hours that was started on 10/08/2019. This will be continued for the next 3-7 days. No other significant events otherwise for now. The patient is calm and comfortable. No altered mentation. No angina. On 10/11/2019 the patient remains on oxygen which is ranging between the 16th is an 8 L. The patient has limited reserve. Whenever he coughs or whenever he does limited amount of activity desaturates. Chest x-ray showing some limited improvement in the peripheral pulmonary foot is was noted earlier. This was quite encouraging. D-dimer remains elevated at 1.36. The patient's LDH is declining down to 958. C-reactive protein is down to 23.2. He is afebrile for now. He is hemodynamically stable. He was provided an incentive spirometer. No other significant events overnight. He remains on IV Solu Medrol 60 mg every 12 hours and this was started on 10/08/2019 to complete a total of 3-7 7 day course based on the patient's clinical response. No altered mentation. He is feeling weak. He is feeling fatigued and tired. No diarrhea. No nausea. No vomiting. No altered mentation. Reevaluated today on 10/12/19, patient remains in the ICU, on 6 L nasal cannula, chest x-ray continues to show bilateral groundglass opacities. Clinically however the patient is feeling better, remains on on Solu-Medrol. His done with the course of Plaquenil. Done with Zithromax. Remains on zinc. Remains on losartan, Solu-Medrol 40 mg every 12, Protonix, Pravachol, and he is on Flomax 0.4 mg daily. IV fluid is at KVO. Objective - Vital Signs Vital signs: Vital Signs Temp 97.7 F 10/12/19 08:00 Pulse 61 10/12/19 12:00 Resp 16 10/12/19 12:00 BP 143/69 10/12/19 12:00 Pulse Ox 94 L 10/12/19 12:00 Intake & Output 10/11/19 10/12/19 10/12/19 18:59 06:59 18:59 Intake Total 1320 770 100 Output Total 2360 3150 850 Balance -5070 -8210 -750 Weight 113.6 kg Intake: IV 600 650 100 Sodium Chloride 0.9% 1, 600 650 100 000 ml @ 50 mls/hr IV . Q20H [facility] Rx#:[id number] Oral 720 120 Output: Urine 2360 3150 850 Other: Voiding Method Urinal Urinal - Exam Physical Exam: Revealed a 69-year-old white male, pleasant, in no distress. On 6 L high flow nasal cannula. Head: Atraumatic, normocephalic. HEENT:[Neck is supple.] [No neck masses.] [No thyromegaly.] [No JVD.] Chest: [Symmetrical chest expansion, crackles and rhonchi at the bases.] Cardiac Exam: [Normal S1 and S2, no S3 gallop, no murmur.] Abdomen: [Soft, nontender, no megaly, no rebound, no guarding, normal bowel sounds.] Extremities: [No clubbing, no edema, no cyanosis.] Neurological Exam: [No focal neurologic deficit.] Alert and oriented 3. Psychiatric: Normal mood, affect and normal mental status examination. Skin: No rashes. Musculoskeletal: No limitation in range of motion and no deformities. - Labs CBC & Chem 7: 10/12/19 04:16 10/12/19 04:16 Labs: Abnormal Lab Results - Last 24 Hours (Table) 10/12/19 10/12/19 Range/Units 04:16 04:16 Neutrophils # 8.8 H (1.3-7.7) k/uL Lymphocytes # 0.5 L (1.0-4.8) k/uL Sodium 136 L (137-145) mmol/L Carbon Dioxide 31 H (22-30) mmol/L Creatinine 0.59 L (0.66-1.25) mg/dL Glucose 174 H (74-99) mg/dL Calcium 7.8 L (8.4-10.2) mg/dL Ferritin 700.6 H (22.0-322.0) ng/mL AST 135 H (17-59) U/L ALT 168 H (4-49) U/L Lactate Dehydrogenase 1153 H (313-618) U/L Creatine Kinase 48 L (55-170) U/L C-Reactive Protein 16.4 H (<10.0) mg/L Total Protein 5.9 L (6.3-8.2) g/dL Albumin 2.9 L (3.5-5.0) g/dL Microbiology - Last 24 Hours (Table) 10/05/19 23:30 Blood Culture - Final Blood No Growth after 144 hours Assessment and Plan Assessment: Impression: Acute covid 19 pneumonitis. Acute hypoxic respiratory failure secondary to above. Mild thrombocytopenia on admission, resolved. History of obstructive sleep apnea syndrome History of benign essential hypertension History of benign prostatic hyperplasia. Recommendation: Continue present supportive care measures. Continue to titrate oxygen as tolerated. Maintain O2 saturation above 90% Continue his home medications. Continue cough medicines. Incentive spirometry. Transfer out of the ICU to a regular medical floor, We'll continue to follow. Time with Patient: Less than 30
[2019-10-12 15:10] VITALS: BMI 29.7
--- NOTE | 2019-10-12 16:55 | P.PN ---
Subjective Progress Note Date: 10/12/19 Principal diagnosis: COVID 19 pneumonia Patient was seen and examined. No acute events overnight. Patient reports slow improvement in his breathing since admission and since yesterday. He continues to complain of a dry cough and coughing fits. He denies any chest pain or pal pitations. No nausea or vomiting. No fever or chills. Objective - Vital Signs Vital signs: Vital Signs Temp 97.8 F 10/12/19 16:00 Pulse 67 10/12/19 16:00 Resp 20 10/12/19 16:00 BP 106/75 10/12/19 16:00 Pulse Ox 91 L 10/12/19 16:00 Intake & Output 10/11/19 10/12/19 10/12/19 18:59 06:59 18:59 Intake Total 1320 770 100 Output Total 2360 3150 1200 Balance -1040 -2380 -1100 Weight 113.6 kg 113.6 kg Intake: IV 600 650 100 Sodium Chloride 0.9% 1, 600 650 100 000 ml @ 50 mls/hr IV . Q20H [facility] Rx#:[id number] Oral 720 120 Output: Urine 2360 3150 1200 Other: Voiding Method Urinal Urinal - Exam General: [non toxic], [mild distress on 5 L NC], [appears at stated age] Derm: [warm], [dry] Head: [atraumatic], [normocephalic], [symmetric] Eyes: [EOMI], [no lid lag], [anicteric sclera] Mouth: [no lip lesion], [mucus membranes moist] Cardiovascular: [S1S2 reg], [no murmur], [positive DP pulse bilateral], Lungs: [Wheezing bilateral], [no rhonchi, no rales] , [no accessory muscle use] Abdominal: [soft], [ nontender to palpation], [no guarding], [no appreciable organomegaly] Ext: [no gross muscle atrophy], [no edema], [no contractures] Neuro: [no focal neuro deficits] Psych: [Alert], [oriented], [appropriate affect] - Labs CBC & Chem 7: 10/12/19 04:16 10/12/19 04:16 Labs: Abnormal Lab Results - Last 24 Hours (Table) 10/12/19 10/12/19 Range/Units 04:16 04:16 Neutrophils # 8.8 H (1.3-7.7) k/uL Lymphocytes # 0.5 L (1.0-4.8) k/uL Sodium 136 L (137-145) mmol/L Carbon Dioxide 31 H (22-30) mmol/L Creatinine 0.59 L (0.66-1.25) mg/dL Glucose 174 H (74-99) mg/dL Calcium 7.8 L (8.4-10.2) mg/dL Ferritin 700.6 H (22.0-322.0) ng/mL AST 135 H (17-59) U/L ALT 168 H (4-49) U/L Lactate Dehydrogenase 1153 H (313-618) U/L Creatine Kinase 48 L (55-170) U/L C-Reactive Protein 16.4 H (<10.0) mg/L Total Protein 5.9 L (6.3-8.2) g/dL Albumin 2.9 L (3.5-5.0) g/dL Microbiology - Last 24 Hours (Table) 10/05/19 23:30 Blood Culture - Final Blood No Growth after 144 hours Assessment and Plan Assessment: COVID 19 pneumonia with acute respiratory disease slowly improving * Continue current treatment protocol pulmonary and ID recommendations appreciated * Covid positive * on steroids by pulmonary, albuterol added as needed * continue zinc, Plaquenil, Rocephin * Will likely be transferred to stepdown tomorrow Acute respiratory failure with hypoxemia * Secondary to pneumonia secondary to Covid-19 * Continue supplemental oxygen currently on 5 L by nasal cannula * Pulmonary consulted and is following * Chest x-ray showing SLIGHT IMPROVEMENT IN THE APPEARANCE OF THE CHEST. Sepsis * Secondary to a viral pneumonia, pro-calcitonin was negative, Covid 19 positive * Continue Plaquenil, Rocephin discontinued * ID consulted and is following Essential hypertension * Blood pressure stable * Continue Norvasc and ARB [Patient was slight improvement. On 5 L nasal cannula. He is pending clinical improvement. Likely DC in 2-3 days.]
[2019-10-12] MEDS: GABAPENTIN 300 MG CAP PO SCH (21:11)
[2019-10-12] MEDS: amLODIPine 5 MG TAB PO SCH (21:11)
[2019-10-12] MEDS: methylPREDNISolone SOD SUCCI 40 MG/ML 1 ML VIAL IV SCH (21:11)
--- NOTE | 2019-10-12 23:19 | PN ---
PROGRESS NOTE DATE OF SERVICE: 10/12/2019 REASON FOR FOLLOWUP: Acute COVID-19 pneumonia. INTERVAL HISTORY: The patient is currently afebrile. The patient has been breathing comfortably. The patient denies having any chest pain. Minimal cough. No nausea, no vomiting. No abdominal pain. No diarrhea. PHYSICAL EXAMINATION: Blood pressure 106/75 with a pulse of 67. Temperature 97.8. He is 91% on 5 L nasal cannula. General description is an elderly male up in the chair in no distress. RESPIRATORY SYSTEM: Unlabored breathing with decreased intensity of breath sounds. No wheeze. HEART: S1, S2. Regular rate and rhythm. ABDOMEN: Soft. No tenderness. LABS: Hemoglobin 13.8, white count 10.0, BUN of 15, creatinine 0.59. DIAGNOSTIC IMPRESSION AND PLAN: Patient with acute COVID-19 pneumonia. Patient has been started on a second course of the Plaquenil; to continue in addition to Solu-Medrol and will monitor clinical course closely. Continue supportive care. MMAMPARO / STEPHANIEN: [id number] /
[2019-10-13] MEDS: HEPARIN SODIUM,PORCINE 5,000 UNIT/ML 1 ML VIAL SQ SCH ×4 (00:22→23:16)
[2019-10-13 06:13] LABS: Glucose,Whole Blood 175 mg/dL (75-99)
--- NOTE | 2019-10-13 09:27 | XR ---
EXAMINATION TYPE: XR chest 1V portable DATE OF EXAM: 10/13/2019 Comparison: 10/12/2019 Clinical History: 69-year-old male follow-up COVID-19 Findings: Heart upper limits of normal in size. Aorta and pulmonary vasculature within normal limits. Periphera l patchy opacities persist, relatively unchanged. Impression: Persistent peripheral infiltrates.
[2019-10-13] MEDS: HYDROXYCHLOROQUINE SULFATE 200 MG TAB PO SCH ×2 (10:40→20:45)
[2019-10-13] MEDS: TAMSULOSIN 0.4 MG CAP.ER.24H PO SCH (10:41)
[2019-10-13] MEDS: PANTOPRAZOLE 40 MG TABLET PO SCH (10:41)
[2019-10-13] MEDS: LOSARTAN 50 MG TAB PO SCH (10:41)
[2019-10-13] MEDS: methylPREDNISolone SOD SUCCI 40 MG/ML 1 ML VIAL IV SCH ×2 (10:41→20:45)
[2019-10-13] MEDS: ZINC SULFATE 220 MG CAP PO SCH (10:42)
[2019-10-13] MEDS: PRAVASTATIN SODIUM 40 MG TAB PO SCH (10:42)
--- NOTE | 2019-10-13 12:59 | P.PN ---
Subjective Progress Note Date: 10/13/19 Principal diagnosis: Acute covid 19 pneumonia, and acute hypoxic respiratory failure secondary to pneumonia 69-year-old male patient admitted to the hospital because of cough and shortness of breath and fever with a very high suspicious for a COVID 19 pneumonia. The patient reports traveling to [place] however he stated a friend's house and this was by the end of August and he drove back to [place]. Denies having any sick contacts. His had similar respiratory symptoms. In the emergency department, the patient was found to be hypoxic and the patient was started on 2 L of oxygen by nasal cannula. Chest x-ray showed some mild interstitial infiltrates bilaterally along with some segmental atelectatic changes in lung bases. His influenza screen was negative. His white cell count was at 5.7. His plated count was 123 which was low. D-dimer was 0.83. He had an LDH of 1095. He had a CPK of 194. C-reactive protein was 33.8. ProBNP level was 183. The pro calcitonin level was 0.05. The patient had some difficulty breathing and on with that he admitted some change in the taste sensation and he was having headache some diffuse body aches. He denied having and diarrhea. This morning, he became more hypoxic. The blood. This was done on 65% FiO2 showed a pH of 7.46 with a pCO2 of 38 and pO2 of 96. The patient was placed on 6 L of oxygen by nasal cannula and later on to 8 L and the patient got chest into the intensive care unit. His resting comfortably in bed. His respiratory rate is between 18 and 24. No significant tachycardia. The CAT scan of the chest was done and showed peripheral groundglass changes most on the lung bases and the findings are typical of Covid 19 infection. The patient also has some enlarged mediastinal lymphadenopathy. No evidence of any pulmonary embolism for now. The patient is seen today 10/07/2019 in follow-up in the intensive care unit. He is awake and alert. He is sitting up in a chair at the bedside. He is still quite short of breath. Continues with a dry nonproductive cough. Still requi ring 10 L high flow nasal cannula to maintain O2 saturations in the 90s. He is currently afebrile. Hemodynamically stable. He is feeling about the same as compared to yesterday. No better but no worse presently. White count 6.9. Hemoglobin 13.6. Platelet count 122,000. Lymphocytes 0.8. Sodium 135. Potassium 3.5. Creatinine 0.70. Troponin 0.032. He remains on ceftriaxone, Plaquenil. Azithromycin was discontinued. Zinc was added. Discontinued ibuprofen. Blood cultures reveal no growth. On 10/08/2019 and seeing the patient for follow-up. The patient is essentially the same compared to yesterday. Chest x-ray may show some interval worsening of the breath and pulmonary infiltrates mainly in the lung peripheries. Nevertheless the patient remains on high flow oxygen 10 L per minute nasal cannula. Unable to wean it down any further. He remains on Plaquenil. He remains on zinc sulfate. He is still episodically spiking fever with a temperature 102.4. He has a LDH level of 1087. CPK was at 194. Pro calcitonin level was low. Covid 19 analysis came back positive. The patient has no headache. No altered mentation. No chest pain. No nausea. No vomiting. No abdominal pain. No other significant events overnight. His cough is not aggressive and it's minimal at this point in time. On 10/09/2019, the patient is still holding on his own and he remains stable w ith his FiO2 is ranging between 8 present 10 L. Throughout the evening, he was on 10 L of oxygen and the patient was maintaining her pulse ox of around 90-93% and this morning he seems to be slightly more improved and he was weaned down to 8 L and I'm hoping to cut him down to 6 L at a later stage. He is still coughing. His cough is dry. Some soreness in his chest when he is coughing. He is afebrile. He is hemodynamically stable. IV Solu-Medrol was also started yesterday and the patient received 60 mg IV push every 12 hours. Repeat chest x-ray from today shows stable peripheral pulmonary infiltrates with groundglass/interstitial changes more so in the lower lobes bilaterally. He is still feeling sick. He is feeling weak. He is complaining of some achiness and soreness. His LDH level is 1073. His C-reactive protein is 71. His EF function is stable with a creatinine of 0.57. The rest of the electrodes are all within normal acceptable ranges. He d-dimer is still elevated at 1.2 which is slightly higher compared to the earlier measurements few days back. No nausea. No vomiting. No diarrhea. No altered mentation. He has checked them positive for Covid 19 infection. On 10/10/2019 the patient remains on 8 L of oxygen by nasal cannula. No new complaints. Chest x-ray findings are essentially stable. Cough has subsided. He is afebrile for now. I was able to cut him down further to 60 Zaroxolyn by nasal cannula. Otherwise, the rest of the blood work is all stable. The patient's CRP level from yesterday was 71 which was higher compared to the earlier evaluation and his LDH level was 1073. He remains on Plaquenil. He remains on zinc sulfate. He remains on IV Rocephin. He is also on IV Solu- Medrol 60 mg every 12 hours that was started on 10/08/2019. This will be continued for the next 3-7 days. No other significant events otherwise for now. The patient is calm and comfortable. No altered mentation. No angina. On 10/11/2019 the patient remains on oxygen which is ranging between the 16th is an 8 L. The patient has limited reserve. Whenever he coughs or whenever he does limited amount of activity desaturates. Chest x-ray showing some limited improvement in the peripheral pulmonary foot is was noted earlier. This was quite encouraging. D-dimer remains elevated at 1.36. The patient's LDH is declining down to 958. C-reactive protein is down to 23.2. He is afebrile for now. He is hemodynamically stable. He was provided an incentive spirometer. No other significant events overnight. He remains on IV Solu Medrol 60 mg every 12 hours and this was started on 10/08/2019 to complete a total of 3-7 7 day course based on the patient's clinical response. No altered mentation. He is feeling weak. He is feeling fatigued and tired. No diarrhea. No nausea. No vomiting. No altered mentation. Reevaluated today on 10/12/19, patient remains in the ICU, on 6 L nasal cannula, chest x-ray continues to show bilateral groundglass opacities. Clinically however the patient is feeling better, remains on on Solu-Medrol. His done with the course of Plaquenil. Done with Zithromax. Remains on zinc. Remains on losartan, Solu-Medrol 40 mg every 12, Protonix, Pravachol, and he is on Flomax 0.4 mg daily. IV fluid is at KVO. Reevaluated today on 10/13/19, patient remains in the ICU as an overflow, he is on 5 L nasal cannula, O2 saturation is 92%, chest x-ray continues to show by lateral peripheral infiltrates, and he continues to have fine crackles on physical examination. Clinically however the patient is feeling well, some shortness of breath, no cough, no wheezing, no fever no chills no hemoptysis and no chest pain. CBC is relatively normal electrolytes and basic metabolic profile are normal renal profile is normal ferritin is 700 LDH is 1153 C- reactive protein is 16.4. D-dimer is 1.36 Objective - Vital Signs Vital signs: Vital Signs Temp 98 F 10/13/19 06:14 Pulse 81 10/13/19 06:14 Resp 20 10/13/19 06:14 BP 132/72 10/13/19 06:14 Pulse Ox 97 10/13/19 06:14 Intake & Output 10/12/19 10/13/19 10/13/19 18:59 06:59 18:59 Intake Total 100 Output Total 1720 3375 Balance -1620 -3375 Weight 113.6 kg 98.3 kg Intake: IV 100 Sodium Chloride 0.9% 1, 100 000 ml @ 50 mls/hr IV . Q20H [facility] Rx#:[id number] Output: Urine 1720 3375 Other: Voiding Method Urinal Urinal - Exam Physical Exam: Revealed a 69-year-old white male, pleasant, in no distress. On 5 L high flow nasal cannula. Head: Atraumatic, normocephalic. HEENT:[Neck is supple.] [No neck masses.] [No thyromegaly.] [No JVD.] Chest: [Symmetrical chest expansion, crackles and rhonchi at the bases.] Cardiac Exam: [Normal S1 and S2, no S3 gallop, no murmur.] Abdomen: [Soft, nontender, no megaly, no rebound, no guarding, normal bowel sounds.] Extremities: [No clubbing, no edema, no cyanosis.] Neurological Exam: [No focal neurologic deficit.] Alert and oriented 3. Psychiatric: Normal mood, affect and normal mental status examination. Skin: No rashes. Musculoskeletal: No limitation in range of motion and no deformities. - Labs CBC & Chem 7: 10/12/19 04:16 10/12/19 04:16 Labs: Abnormal Lab Results - Last 24 Hours (Table) 10/13/19 Range/Units 06:10 POC Glucose (mg/dL) 175 H (75-99) mg/dL Assessment and Plan Assessment: Impression: Acute covid 19 pneumonitis. Acute hypoxic respiratory failure secondary to above. Mild thrombocytopenia on admission, resolved. History of obstructive sleep apnea syndrome History of benign essential hypertension History of benign prostatic hyperplasia. Recommendation: Continue present supportive care measures. Continue oxygen at 5 L nasal cannula Transfer out of the ICU to a regular medical floor, Consider discharge planning in the next 24-48 hours if the patient couldn't tolerate being on room air or 2 L nasal cannula which could be arranged for at home. We'll continue to follow. Time with Patient: Less than 30
--- NOTE | 2019-10-13 14:22 | P.PN ---
Subjective Progress Note Date: 10/13/19 Principal diagnosis: COVID 19 pneumonia Patient was seen and examined. No acute events overnight. Patient reports not much improvement in his breathing since yesterday. He continues to complain of a dry cough and coughing fits. Continues to be on 5L NC. He denies any chest pa in or palpitations. No nausea or vomiting. No fever or chills. Objective - Vital Signs Vital signs: Vital Signs Temp 98 F 10/13/19 06:14 Pulse 81 10/13/19 06:14 Resp 20 10/13/19 08:00 BP 132/72 10/13/19 06:14 Pulse Ox 97 10/13/19 06:14 Intake & Output 10/12/19 10/13/19 10/13/19 18:59 06:59 18:59 Intake Total 100 Output Total 1720 3375 Balance -1620 -3375 Weight 113.6 kg 98.3 kg Intake: IV 100 Sodium Chloride 0.9% 1, 100 000 ml @ 50 mls/hr IV . Q20H [facility] Rx#:[id number] Output: Urine 1720 3375 Other: Voiding Method Urinal Urinal - Exam General: [non toxic], [mild distress on 5 L NC], [appears at stated age] Derm: [warm], [dry] Head: [atraumatic], [normocephalic], [symmetric] Eyes: [EOMI], [no lid lag], [anicteric sclera] Mouth: [no lip lesion], [mucus membranes moist] Cardiovascular: [S1S2 reg], [no murmur], [positive DP pulse bilateral], Lungs: [Decreased BS bilateral], [no rhonchi, no rales] , [no accessory muscle use] Abdominal: [soft], [ nontender to palpation], [no guarding], [no appreciable organomegaly] Ext: [no gross muscle atrophy], [no edema], [no contractures] Neuro: [no focal neuro deficits] Psych: [Alert], [oriented], [appropriate affect] - Labs CBC & Chem 7: 10/12/19 04:16 10/12/19 04:16 Labs: Abnormal Lab Results - Last 24 Hours (Table) 10/13/19 Range/Units 06:10 POC Glucose (mg/dL) 175 H (75-99) mg/dL Assessment and Plan Assessment: COVID 19 pneumonia with acute respiratory disease slowly improving * Continue current treatment protocol pulmonary and ID recommendations appreciated * Covid positive * on steroids by pulmonary, albuterol added as needed * continue zinc, Plaquenil, Rocephin * Will likely be transferred to stepdown tomorrow Acute respiratory failure with hypoxemia * Secondary to pneumonia secondary to Covid-19 * Continue supplemental oxygen currently on 5 L by nasal cannula * Pulmonary consulted and is following * Chest x-ray showing persistent infiltrates. Sepsis * Secondary to a viral pneumonia, pro-calcitonin was negative, Covid 19 positive * Continue Plaquenil, Rocephin discontinued * ID consulted and is following Essential hypertension * Blood pressure stable * Continue Norvasc and ARB [Patient condition unchanged. On 5 L nasal cannula. He is pending clinical improvement. Likely DC in 2-3 days.]
[2019-10-13] MEDS: GABAPENTIN 300 MG CAP PO SCH (20:45)
[2019-10-13] MEDS: amLODIPine 5 MG TAB PO SCH (20:45)
--- NOTE | 2019-10-13 22:01 | PN ---
PROGRESS NOTE DATE OF SERVICE: 10/13/2019 REASON FOR FOLLOWUP: Acute COVID-19 pneumonia. INTERVAL HISTORY: The patient is currently afebrile. The patient has been breathing comfortably. Still requiring about 5 L nasal cannula. Denies having any chest pain. Cough but no sputum. No nausea, vomiting. No abdominal pain or diarrhea. PHYSICAL EXAMINATION: Blood pressure is 127/67 with a pulse of 80, temperature 98.3. He is 96% on 5 L nasal cannula. General description is an elderly male up in the chair in no distress. RESPIRATORY SYSTEM: Unlabored breathing with decreased intensity of breath sounds. No wheeze. HEART: S1, S2. Regular rate and rhythm. ABDOMEN: Soft. No tenderness. LABS: Hemoglobin is 13.8, white count 10.0. BUN of 15, creatinine 0.59. DIAGNOSTIC IMPRESSION AND PLAN: Patient with acute COVID-19 pneumonia. The patient is slowly clinically improving but still requiring supplemental oxygen at 5 L. The patient has completed his Plaquenil therapy. Continue respiratory support and monitor his clinical course closely. CASIMIRO / TWIN: [id number] /
[2019-10-14 05:56] LABS: Glucose,Whole Blood 203 mg/dL (75-99)
[2019-10-14 07:14] LABS: Basophils # (A) 0.1 k/uL (0-0.2); Basophils % (A) 1 %; Eosinophils % (A) 0 %; HCT 45.4 % (39.0-53.0); HGB 14.8 gm/dL (13.0-17.5); Lymphocytes # (A) 0.8 k/uL (1.0-4.8); Lymphocytes % (A) 7 %; MCH 30.2 pg (25.0-35.0); MCHC 32.5 g/dL (31.0-37.0); MCV 92.7 fL (80.0-100.0); Mean Platelet Volume 7.8; Monocytes # (A) 0.6 k/uL (0-1.0); Monocytes % (A) 5 %; Neutrophils # (A) 9.1 k/uL (1.3-7.7); Neutrophils % (A) 85 %; Platelet Count 287 k/uL (150-450); RDW 12.5 % (11.5-15.5); WBC 10.6 k/uL (3.8-10.6)
--- NOTE | 2019-10-14 07:15 | XR ---
EXAMINATION TYPE: XR chest 1V portable DATE OF EXAM: 10/14/2019 HISTORY: Shortness of breath. COMPARISON: 10/13/2019 TECHNIQUE: Single view of the chest is submitted. FINDINGS: Demonstrated are scattered senescent parenchymal change. There are stable peripheral infiltrates seen bilaterally. The heart is stable. Hilar and mediastinal structures are within normal limits. Degenerative changes are seen of the dorsal spine. IMPRESSION: 1. There are stable peripheral infiltrates seen bilaterally.
[2019-10-14] MEDS: HYDROXYCHLOROQUINE SULFATE 200 MG TAB PO SCH ×3 (07:47→21:06)
[2019-10-14 07:48] LABS: ALT 178 U/L (4-49); AST 48 U/L (17-59); African American GFR (CKD) >90 (>60 ml/min/1.73 sqM); Albumin 3.1 g/dL (3.5-5.0); Alkaline Phosphatase 63 U/L (38-126); Anion Gap 5 mmol/L; Blood Urea Nitrogen 18 mg/dL (9-20); Carbon Dioxide 31 mmol/L (22-30); Chloride 100 mmol/L (98-107); Glucose 178 mg/dL (74-99); Non-African American GFR(CKD) >90 (>60 ml/min/1.73 sqM); Potassium 4.3 mmol/L (3.5-5.1); Sodium 136 mmol/L (137-145); Total Bilirubin 0.8 mg/dL (0.2-1.3); Total Protein 6.1 g/dL (6.3-8.2)
[2019-10-14] MEDS: LOSARTAN 50 MG TAB PO SCH (08:50)
[2019-10-14] MEDS: HEPARIN SODIUM,PORCINE 5,000 UNIT/ML 1 ML VIAL SQ SCH ×3 (08:50→23:06)
[2019-10-14] MEDS: methylPREDNISolone SOD SUCCI 40 MG/ML 1 ML VIAL IV SCH ×2 (08:50→21:06)
[2019-10-14] MEDS: PANTOPRAZOLE 40 MG TABLET PO SCH (08:50)
[2019-10-14] MEDS: TAMSULOSIN 0.4 MG CAP.ER.24H PO SCH (08:50)
[2019-10-14] MEDS: PRAVASTATIN SODIUM 40 MG TAB PO SCH (08:51)
[2019-10-14] MEDS: ZINC SULFATE 220 MG CAP PO SCH (08:51)
--- NOTE | 2019-10-14 13:19 | P.PN ---
Subjective Progress Note Date: 10/14/19 Principal diagnosis: Acute: With 19 pneumonia, and acute hypoxemic respiratory failure 69-year-old male patient admitted to the hospital because of cough and shortness of breath and fever with a very high suspicious for a COVID 19 pneumonia. The patient reports traveling to [place] however he stated a friend's house and this was by the end of August and he drove back to [place]. Denies having any sick contacts. His had similar respiratory symptoms. In the emergency department, the patient was found to be hypoxic and the patient was started on 2 L of oxygen by nasal cannula. Chest x-ray showed some mild interstitial infiltrates bilaterally along with some segmental atelectatic changes in lung bases. His influenza screen was negative. His white cell count was at 5.7. His plated count was 123 which was low. D-dimer was 0.83. He had an LDH of 1095. He had a CPK of 194. C-reactive protein was 33.8. ProBNP level was 183. The pro calcitonin level was 0.05. The patient had some difficulty breathing and on with that he admitted some change in the taste sensation and he was having headache some diffuse body aches. He denied having and diarrhea. This morning, he became more hypoxic. The blood. This was done on 65% FiO2 showed a pH of 7.46 with a pCO2 of 38 and pO2 of 96. The patient was placed on 6 L of oxygen by nasal cannula and later on to 8 L and the patient got chest into the intensive care unit. His resting comfortably in bed. His respiratory rate is between 18 and 24. No significant tachycardia. The CAT scan of the chest was done and showed peripheral groundglass changes most on the lung bases and the findings are typical of Covid 19 infection. The patient also has some enlarged mediastinal lymphadenopathy. No evidence of any pulmonary embolism for now. The patient is seen today 10/07/2019 in follow-up in the intensive care unit. He is awake and alert. He is sitting up in a chair at the bedside. He is still quite short of breath. Continues with a dry nonproductive cough. Still requiring 10 L high flow nasal cannula to maintain O2 saturations in the 90s. He is currently afebrile. Hemodynamically stable. He is feeling about the same as compared to yesterday. No better but no worse presently. White count 6.9. Hemoglobin 13.6. Platelet count 122,000. Lymphocytes 0.8. Sodium 135. Potassium 3.5. Creatinine 0.70. Troponin 0.032. He remains on ceftriaxone, Plaquenil. Azithromycin was discontinued. Zinc was added. Discontinued ibuprofen. Blood cultures reveal no growth. On 10/08/2019 and seeing the patient for follow-up. The patient is essentially the same compared to yesterday. Chest x-ray may show some interval worsening of the breath and pulmonary infiltrates mainly in the lung peripheries. Nevertheless the patient remains on high flow oxygen 10 L per minute nasal cannula. Unable to wean it down any further. He remains on Plaquenil. He remains on zinc sulfate. He is still episodically spiking fever with a temperature 102.4. He has a LDH level of 1087. CPK was at 194. Pro calcitonin level was low. Covid 19 analysis came back positive. The patient has no head ache. No altered mentation. No chest pain. No nausea. No vomiting. No abdominal pain. No other significant events overnight. His cough is not aggressive and it's minimal at this point in time. On 10/09/2019, the patient is still holding on his own and he remains stable with his FiO2 is ranging between 8 present 10 L. Throughout the evening, he was on 10 L of oxygen and the patient was maintaining her pulse ox of around 90-93% and this morning he seems to be slightly more improved and he was weaned down to 8 L and I'm hoping to cut him down to 6 L at a later stage. He is still coughin g. His cough is dry. Some soreness in his chest when he is coughing. He is afebrile. He is hemodynamically stable. IV Solu-Medrol was also started yesterday and the patient received 60 mg IV push every 12 hours. Repeat chest x-ray from today shows stable peripheral pulmonary infiltrates with g roundglass/interstitial changes more so in the lower lobes bilaterally. He is still feeling sick. He is feeling weak. He is complaining of some achiness and soreness. His LDH level is 1073. His C-reactive protein is 71. His EF function is stable with a creatinine of 0.57. The rest of the electrodes are all within normal acceptable ranges. He d-dimer is still elevated at 1.2 which is slightly higher compared to the earlier measurements few days back. No nausea. No vomiting. No diarrhea. No altered mentation. He has checked them positive for Covid 19 infection. On 10/10/2019 the patient remains on 8 L of oxygen by nasal cannula. No new complaints. Chest x-ray findings are essentially stable. Cough has subsided. He is afebrile for now. I was able to cut him down further to 60 Zaroxolyn by nasal cannula. Otherwise, the rest of the blood work is all stable. The patient's CRP level from yesterday was 71 which was higher compared to the earlier evaluation and his LDH level was 1073. He remains on Plaquenil. He remains on zinc sulfate. He remains on IV Rocephin. He is also on IV Solu- Medrol 60 mg every 12 hours that was started on 10/08/2019. This will be continued for the next 3-7 days. No other significant events otherwise for now. The patient is calm and comfortable. No altered mentation. No angina. On 10/11/2019 the patient remains on oxygen which is ranging between the 16th is an 8 L. The patient has limited reserve. Whenever he coughs or whenever he does limited amount of activity desaturates. Chest x-ray showing some limited improvement in the peripheral pulmonary foot is was noted earlier. This was quite encouraging. D-dimer remains elevated at 1.36. The patient's LDH is declining down to 958. C-reactive protein is down to 23.2. He is afebrile for now. He is hemodynamically stable. He was provided an incentive spirometer. No other significant events overnight. He remains on IV Solu Medrol 60 mg every 12 hours and this was started on 10/08/2019 to complete a total of 3-7 7 day course based on the patient's clinical response. No altered mentation. He is feeling weak. He is feeling fatigued and tired. No diarrhea. No nausea. No vomiting. No altered mentation. Reevaluated today on 10/12/19, patient remains in the ICU, on 6 L nasal cannula, chest x-ray continues to show bilateral groundglass opacities. Clinically however the patient is feeling better, remains on on Solu-Medrol. His done with the course of Plaquenil. Done with Zithromax. Remains on zinc. Remains on losartan, Solu-Medrol 40 mg every 12, Protonix, Pravachol, and he is on Flomax 0.4 mg daily. IV fluid is at KVO. Reevaluated today on 10/13/19, patient remains in the ICU as an overflow, he is on 5 L nasal cannula, O2 saturation is 92%, chest x-ray continues to show by lateral peripheral infiltrates, and he continues to have fine crackles on physical examination. Clinically however the patient is feeling well, some shortness of breath, no cough, no wheezing, no fever no chills no hemoptysis and no chest pain. CBC is relatively normal electrolytes and basic metabolic profile are normal renal profile is normal ferritin is 700 LDH is 1153 C- reactive protein is 16.4. D-dimer is 1.36 On 10/14/2019 patient seen in follow-up on general medical floor. Pulse ox is 92% on 5 L, we did cut back the FiO2 to 3 L, and patient is maintaining O2 sat around 90%, no worsening dyspnea, his been afebrile, breathing is comfortable, he is on an extended course of Plaquenil, IV Solu-Medrol, and he has finished his antibiotics. Blood cultures reveal no growth. Today's labs have been reviewed, showing normal white count of 10.6, hemoglobin is 14.8, electrolytes and renal profile are unremarkable. Last d-dimer was done on 10/11/2019, and was elevated to 1.36, last LDH was also done on 10/11/2019, and was elevated at 1153, CRP was 16.4, will follow-up with markers. Today's chest x-ray has been reviewed showing stable peripheral infiltratesbilaterally. Objective - Vital Signs Vital signs: Vital Signs Temp 98.0 F 10/14/19 11:45 Pulse 66 10/14/19 11:45 Resp 18 10/14/19 11:45 BP 111/68 10/14/19 11:45 Pulse Ox 90 L 10/14/19 11:45 Intake & Output 10/13/19 10/14/19 10/14/19 18:59 06:59 18:59 Intake Total 520 580 Output Total 1200 750 Balance -680 -750 580 Intake: Oral 520 580 Output: Urine 1200 750 Other: Voiding Method Toilet Toilet Urinal Urinal # Voids 1 - Exam GENERAL EXAM: Alert, very pleasant, 69-year-old white male, currently on 3 L of oxygen with a pulse ox of 90%, comfortable in no apparent distress. HEAD: Normocephalic/atraumatic. EYES: Normal reaction of pupils, equal size. Conjunctiva pink, sclera white. NOSE: Clear with pink turbinates. THROAT: No erythema or exudates. NECK: No masses, no JVD, no thyroid enlargement, no adenopathy. CHEST: No chest wall deformity. Symmetrical expansion. LUNGS: Equal air entry with no crackles, wheeze, rhonchi or dullness. CVS: Regular rate and rhythm, normal S1 and S2, no gallops, no murmurs, no rubs ABDOMEN: Soft, nontender. No hepatosplenomegaly, normal bowel sounds, no guarding or rigidity. EXTREMITIES: No clubbing, no edema, no cyanosis, 2+ pulses and upper and lower extremities. MUSCULOSKELETAL: Muscle strength and tone normal. SPINE: No scoliosis or deformity SKIN: No rashes CENTRAL NERVOUS SYSTEM: Alert and oriented -3. No focal deficits, tone is normal in all 4 extremities. PSYCHIATRIC: Alert and oriented -3. Appropriate affect. Intact judgment and insight. - Labs CBC & Chem 7: 10/14/19 06:37 10/14/19 06:37 Labs: Abnormal Lab Results - Last 24 Hours (Table) 10/14/19 10/14/19 10/14/19 Range/Units 05:53 06:37 06:37 Neutrophils # 9.1 H (1.3-7.7) k/uL Lymphocytes # 0.8 L (1.0-4.8) k/uL Sodium 136 L (137-145) mmol/L Carbon Dioxide 31 H (22-30) mmol/L Creatinine 0.64 L (0.66-1.25) mg/dL Glucose 178 H (74-99) mg/dL POC Glucose (mg/dL) 203 H (75-99) mg/dL Calcium 8.0 L (8.4-10.2) mg/dL ALT 178 H (4-49) U/L Total Protein 6.1 L (6.3-8.2) g/dL Albumin 3.1 L (3.5-5.0) g/dL Microbiology - Last 24 Hours (Table) 10/11/19 04:16 Blood Culture - Preliminary Blood No Growth after 24 hours Assessment and Plan Plan: Assessment: #1. Acute hypoxic respiratory failure related to acute: 19 pneumonitis #2. Mild thrombocytopenia present on admission, resolved #3. History of obstructive sleep apnea syndrome #4. History of benign essential hypertension #5. History of benign prostatic hyperplasia Plan: Continue weaning FiO2, maintaining O2 sat at around 89-90%. Today's chest x-ray has been reviewed showing stable findings of bilateral peripheral infiltrates, no worsening dyspnea, patient is finishing his extended course of Plaquenil, he has completed antibiotics, no fever or chills in last 24 hours, vital signs are stable, no acute events overnight. May consider for discharge in the next 24 hours. I performed a history & physical examination of the patient and discussed their management with my nurse practitioner, Zora Adorno. I reviewed the nurse practitioner's note and agree with the documented findings and plan of care. Lung sounds are positive for diminished breath sounds. The findings and the impression was discussed with the patient. I attest to the documentation by the nurse practitioner. Time with Patient: Less than 30
--- NOTE | 2019-10-14 14:16 | P.PN ---
<Vaishnavi Liu - Last Filed: 10/14/19 14:13> Subjective Progress Note Date: 10/14/19 CHIEF COMPLAINT: Covid 19 HISTORY OF PRESENT ILLNESS: 10/14/2019: Patient examined at the bedside this morning. He was on 5L nasal cannula this morning which has been weaned down to 2 L nasal cannula. He is maintaining oxygen saturations greater than 92%. He denies shortness of breath. He reports a mild occasional non-productive cough. Denies nausea vomiting or abdominal pain. Vital signs have been stable. He is afebrile. Repeat chest x- ray performed today reveals stable peripheral infiltrates seen bilaterally. PHYSICAL EXAM: VITAL SIGNS: Reviewed GENERAL: Well-developed in no acute distress. HEENT: No sclera icterus. Extraocular movements grossly intact. Moist buccal mucosa. Head is atraumatic, normocephalic. Hears conversational speech. No nasal drainage. NECK: Supple without lymphadenopathy. CHEST: Lung sounds diminished. Non-labored respirations and equal bilateral excursions. CARDIOVASCULAR: Regular rate with regular rhythm. Palpable pulses. ABDOMEN: Soft. Nondistended. Nontender. MUSCULOSKELETAL: No clubbing or cyanosis. NEUROLOGIC: No focal or lateralizing signs. Cranial nerves II through XII grossly intact. PSYCH: Appropriate affect. Alert and oriented to person, place and time. SKIN: Well perfused. Good skin turgor. ASSESSMENT AND PLAN: 1. Covid 19 pneumonia with acute respiratory disease -Continue supportive care -Pulmonary and infectious disease following -Continue Plaquenil and Zinc -Rocephin discontinued -Continue IV steroids per pulmonary -Continue albuterol inhaler PRN 2. Acute respiratory failure with hypoxia -Secondary to pneumonia secondary to Covid 19 -Continue to wean oxygen as tolerated 3. Sepsis -Secondary to viral pneumonia -Continue supportive care -Infectious disease following 4. History of hypertension -Continue to monitor blood pressure -Continue current antihypertensive medications DVT prophylaxis: Heparin subcu Discussed with: Nursing, patient Anticipated discharge: Possible discharge home in the next 24-[address]: Home Nurse practitioner note has been reviewed by physician. Signing provider agrees with the documented findings, assessment, and plan of care. Objective - Vital Signs Vital signs: Vital Signs Temp 98.0 F 10/14/19 11:45 Pulse 66 10/14/19 11:45 Resp 18 10/14/19 11:45 BP 111/68 10/14/19 11:45 Pulse Ox 90 L 10/14/19 11:45 Intake & Output 10/13/19 10/14/19 10/14/19 18:59 06:59 18:59 Intake Total 520 580 Output Total 1200 750 Balance -680 -750 580 Intake: Oral 520 580 Output: Urine 1200 750 Other: Voiding Method Toilet Toilet Urinal Urinal # Voids 1 - Labs CBC & Chem 7: 10/14/19 06:37 10/14/19 06:37 Labs: Abnormal Lab Results - Last 24 Hours (Table) 10/14/19 10/14/19 10/14/19 Range/Units 05:53 06:37 06:37 Neutrophils # 9.1 H (1.3-7.7) k/uL Lymphocytes # 0.8 L (1.0-4.8) k/uL Sodium 136 L (137-145) mmol/L Carbon Dioxide 31 H (22-30) mmol/L Creatinine 0.64 L (0.66-1.25) mg/dL Glucose 178 H (74-99) mg/dL POC Glucose (mg/dL) 203 H (75-99) mg/dL Calcium 8.0 L (8.4-10.2) mg/dL ALT 178 H (4-49) U/L Total Protein 6.1 L (6.3-8.2) g/dL Albumin 3.1 L (3.5-5.0) g/dL Microbiology - Last 24 Hours (Table) 10/11/19 04:16 Blood Culture - Preliminary Blood No Growth after 24 hours <Alex Eduardo - Last Filed: 10/14/19 16:50> Objective - Vital Signs Vital signs: Vital Signs Temp 97.9 F 10/14/19 15:00 Pulse 69 10/14/19 15:00 Resp 18 10/14/19 15:00 BP 104/62 10/14/19 15:00 Pulse Ox 92 L 10/14/19 15:00 Intake & Output 10/13/19 10/14/19 10/14/19 18:59 06:59 18:59 Intake Total 520 580 Output Total 1200 750 Balance -680 -750 580 Intake: Oral 520 580 Output: Urine 1200 750 Other: Voiding Method Toilet Toilet Urinal Urinal # Voids 1 - Labs CBC & Chem 7: 10/14/19 06:37 10/14/19 06:37 Labs: Abnormal Lab Results - Last 24 Hours (Table) 10/14/19 10/14/19 10/14/19 Range/Units 05:53 06:37 06:37 Neutrophils # 9.1 H (1.3-7.7) k/uL Lymphocytes # 0.8 L (1.0-4.8) k/uL Sodium 136 L (137-145) mmol/L Carbon Dioxide 31 H (22-30) mmol/L Creatinine 0.64 L (0.66-1.25) mg/dL Glucose 178 H (74-99) mg/dL POC Glucose (mg/dL) 203 H (75-99) mg/dL Calcium 8.0 L (8.4-10.2) mg/dL ALT 178 H (4-49) U/L Total Protein 6.1 L (6.3-8.2) g/dL Albumin 3.1 L (3.5-5.0) g/dL Microbiology - Last 24 Hours (Table) 10/11/19 04:16 Blood Culture - Preliminary Blood No Growth after 24 hours Assessment and Plan Assessment: I saw and evaluated the patient and discussed the care with [Sarah Liu ]ELVIS on [10/14/2019 ]. I agree with the subjective, assessment and plan as documented in the note above. Patient has been weaned down from 5 L nasal cannula to 2 L nasal cannula. His symptoms have improved. Plan is to continue weaning oxygen. Anticipate discharge in the next 1-2 days. Physical exam: General: [Non toxic], [No distress], [appears at stated age] Skin: [warm], [dry] Lungs: [chest rise symmetrical], [no accessory muscle use], [no conversational dyspnea] Cardiovascular: [ + dorsal pedis pulse bilateral], [capillary refill<2 seconds, [no lower extremity edema]
[2019-10-14] MEDS: GABAPENTIN 300 MG CAP PO SCH (21:06)
[2019-10-14] MEDS: amLODIPine 5 MG TAB PO SCH (21:06)
--- NOTE | 2019-10-14 23:54 | PN ---
PROGRESS NOTE DATE OF SERVICE: 10/14/2019 REASON FOR FOLLOWUP: Acute Covid-19 pneumonia. INTERVAL HISTORY: The patient is currently afebrile, has been breathing comfortably. The patient denies having any chest pain. Occasional cough. No nausea, no vomiting. No abdominal pain or diarrhea. PHYSICAL EXAMINATION: Blood pressure 131/79 with a pulse of 64, temperature 98.3. He is 92% on 3 L nasal cannula. General description is an elderly male up in the chair in no distress. RESPIRATORY SYSTEM: Unlabored breathing with decreased intensity of breath sounds. No wheeze. HEART: S1, S2. Regular rate and rhythm. ABDOMEN: Soft. No tenderness. LABS: Hemoglobin 14.8, white count 10.6, BUN of 18, creatinine 0.6. DIAGNOSTIC IMPRESSION AND PLAN: Patient with acute COVID-19 pneumonia. Patient seems to have shown some clinical improvement, requiring less oxygenation. Chest x-ray is stable. Continue with the Plaquenil and zinc and supportive treatment. Monitor clinical course closely. MMODL / IJN: [id number] /
[2019-10-15 06:33] LABS: Glucose,Whole Blood 184 mg/dL (75-99)
[2019-10-15 07:32] VITALS: BP 118/56; RESP 18; TEMP 97.8
[2019-10-15] MEDS: PRAVASTATIN SODIUM 40 MG TAB PO SCH (07:46)
[2019-10-15] MEDS: HYDROXYCHLOROQUINE SULFATE 200 MG TAB PO SCH (07:46)
[2019-10-15] MEDS: ALBUTEROL HFA INHALER INHALATION PRN ×2 (07:46→11:01)
[2019-10-15] MEDS: PANTOPRAZOLE 40 MG TABLET PO SCH (07:46)
[2019-10-15] MEDS: LOSARTAN 50 MG TAB PO SCH (07:46)
[2019-10-15] MEDS: methylPREDNISolone SOD SUCCI 40 MG/ML 1 ML VIAL IV SCH (07:47)
[2019-10-15] MEDS: ZINC SULFATE 220 MG CAP PO SCH (07:47)
[2019-10-15] MEDS: TAMSULOSIN 0.4 MG CAP.ER.24H PO SCH (07:47)
[2019-10-15] MEDS: HEPARIN SODIUM,PORCINE 5,000 UNIT/ML 1 ML VIAL SQ SCH ×2 (07:47→15:39)
--- NOTE | 2019-10-15 08:22 | XR ---
EXAMINATION TYPE: XR chest 1V portable DATE OF EXAM: 10/15/2019 COMPARISON: 10/14/2019 INDICATION: Covid 19 TECHNIQUE: Single frontal view of the chest is obtained. FINDINGS: The heart size is normal. The pulmonary vasculature is normal. There are patchy peripheral infiltrates present. Findings are stable. IMPRESSION: 1. Patchy bilateral peripheral infiltrates, stable.
[2019-10-15 09:01] LABS: Basophils % (A) 0 %; Eosinophils % (A) 0 %; HCT 46.1 % (39.0-53.0); HGB 15.2 gm/dL (13.0-17.5); Lymphocytes # (A) 1.2 k/uL (1.0-4.8); Lymphocytes % (A) 9 %; MCH 30.8 pg (25.0-35.0); MCHC 33.1 g/dL (31.0-37.0); MCV 93.2 fL (80.0-100.0); Mean Platelet Volume 7.9; Monocytes # (A) 0.5 k/uL (0-1.0); Monocytes % (A) 4 %; Neutrophils # (A) 11.1 k/uL (1.3-7.7); Neutrophils % (A) 86 %; Platelet Count 339 k/uL (150-450); RBC 4.94 m/uL (4.30-5.90); RDW 12.5 % (11.5-15.5)
[2019-10-15 09:15] LABS: ALT 132 U/L (4-49); AST 35 U/L (17-59); African American GFR (CKD) >90 (>60 ml/min/1.73 sqM); Albumin 3.2 g/dL (3.5-5.0); Alkaline Phosphatase 64 U/L (38-126); Anion Gap 4 mmol/L; Blood Urea Nitrogen 21 mg/dL (9-20); C Reactive Protein <5.0 mg/L (<10.0); Calcium 8.3 mg/dL (8.4-10.2); Carbon Dioxide 32 mmol/L (22-30); Chloride 100 mmol/L (98-107); Glucose 226 mg/dL (74-99); LDH 811 U/L (313-618); Non-African American GFR(CKD) >90 (>60 ml/min/1.73 sqM); Potassium 4.7 mmol/L (3.5-5.1); Sodium 136 mmol/L (137-145); Total Protein 6.2 g/dL (6.3-8.2)
[2019-10-15 10:38] VITALS: PULSE 69
--- NOTE | 2019-10-15 12:12 | P.DS ---
<Vaishnavi Liu Meera - Last Filed: 10/15/19 12:06> Providers Expected date of discharge: 10/15/19 Hospital Course: 69-year-old male with hypertension controlled with medications , DEVEN on CPAP. Patient comes in today with 10 day history of dry cough and headache along with body aches. denies any sore throat, but does admit to changes in taste sensation . he also reports difficulty taking deep breath with what seems like pleuritic chest pain . denies any nausea or vomiting denies any changes to smell sensation, denies any diarrhea. Reports recent traveling to [place] however they stayed at a friend's house that was end of August and they drove back here. he denies any known contact with COVID positive patient's EKG showed premature atrial contractions. during my interview his heart rate was dropping to 40s briefly , but asymptomatic. QTC 500 he admits to episode of syncope beginning of september, worked up outpatient , no final diagnosis. with with similar respiratory symptoms. Patient was tested for covid and admitted for further care. In the ED he was found to be hypoxic and started on 2 L NC. CXR showed infilterates 10/06/2019:Patient was seen today, he is currently doing okay, continues to have cough and slight shortness of breath. No phlegm production. No fevers but did have some chills earlier. 10/07/2019: Patient seen and examined at bedside, patient afebrile this morning but had a low-grade temp 100.1 at midnight. Patient continues on 10 L via nasal cannul sats 91-95%. LDH elevated at 1095 creatinine kinase 194, CRP 33.8 troponin negative at 0.032. Pro-calcitonin 0.05. CT of the chest showing peripheral groundglass opacities and infiltrates with mediastinal lymphadenopathy negative for PE. Patient denies any chest pain, complains of shortness of breath and fatigue. 10/08/2019: Patient examined at bedside, patient pretty fatigued today after having paroxysms of cough overnight with poor sleep. He continues to be dyspneic with exertion, patient continues on supplemental oxygen currently on 10 L by nasal cannula. The patient's fever has broken Covid testing did return positive. Chest x-ray showing worsening bilateral consolidation and a peripheral distribution, LDH marginally down to 1087. 10/09/2019: Patient examined at bedside, reports being more rested today. He continues to be dyspneic with exertion, patient continues on supplemental oxygen currently on 6-8 L by nasal cannula. The patient's fever has broken Covid testing did return positive. Chest x-ray showing worsening bilateral consolidation and a peripheral distribution, LDH marginally down to 1087. 10/10/2019: Patient seen and examined at bedside. Patient admits that he co ntinues to be short of breath and continues to have a persistent cough. Patient remains on 8L of nasal cannula with 94% oxygen saturation. Patient is currently afebrile. Patient denies chest pain. Patient further denies nausea, vomiting, diarrhea, or constipation. Chest x-ray today reveals no significant changes. 10/11/2019: Patient seen and examined at bedside. Patient is sitting up comfort ably in chair. Patient is currently on 6 L nasal cannula tolerating it better than yesterday. Patient does admit to exertional dyspnea and cough. Patient continues to be afebrile. Vitals within normal limits. Patient will likely be transferred to stepdown tomorrow if he continues to improve. 10/12/2019: Patient was seen and examined. No acute events overnight. Patient reports slow improvement in his breathing since admission and since yesterday. He continues to complain of a dry cough and coughing fits. He denies any chest pain or palpitations. No nausea or vomiting. No fever or chills. 10/13/2019: Patient was seen and examined. No acute events overnight. Patient reports not much improvement in his breathing since yesterday. He continues to complain of a dry cough and coughing fits. Continues to be on 5L NC. He denies any chest pain or palpitations. No nausea or vomiting. No fever or chills. 10/14/2019: Patient examined at the bedside this morning. He was on 5L nasal cannula this morning which has been weaned down to 2 L nasal cannula. He is maintaining oxygen saturations greater than 92%. He denies shortness of breath. He reports a mild occasional non-productive cough. Denies nausea vomiting or abdominal pain. Vital signs have been stable. He is afebrile. Repeat chest x- ray performed today reveals stable peripheral infiltrates seen bilaterally. 10/15/2019: Patient examined at the bedside. He has been weaned down to 2 L nasal cannula. Oxygen saturations are maintaining greater than 92%. He denies shortness of breath. He has been cleared for discharge from pulmonary medicine. Patient has completed his course of Plaquenil. He is discharged home with an albuterol inhaler and home O2. Please see EMR for further hospital course details. Discharge Diagnosis: 1. Covid 19 pneumonia with acute respiratory disease 2. Acute respiratory failure with hypoxia 3. Sepsis 4. History of hypertension Nurse practitioner note has been reviewed by physician. Signing provider agrees with the documented findings, assessment, and plan of care. Patient Condition at Discharge: Stable Plan - Discharge Summary Discharge Rx Participant: No New Discharge Prescriptions: New Albuterol Inhaler [Ventolin Hfa Inhaler] 2 puff INHALATION RT-QID PRN #1 inh PRN Reason: Shortness Of Breath Or Wheezing Continue rOPINIRole HCL 3 mg PO HS buPROPion XL [Wellbutrin XL] 450 mg PO DAILY Tamsulosin [Flomax] 0.4 mg PO BID amLODIPine [Norvasc] 10 mg PO DAILY Pravastatin Sodium [Pravachol] 40 mg PO HS Esomeprazole Magnesium 40 mg PO DAILY Aspirin EC [Ecotrin Low Dose] 81 mg PO DAILY Gabapentin 600 mg PO DAILY Discontinued Doxycycline Hyclate 100 mg PO BID 7 Days #14 tab Discharge Medication List Aspirin EC [Ecotrin Low Dose] 81 mg PO DAILY 10/06/19 [History] Esomeprazole Magnesium 40 mg PO DAILY 10/06/19 [History] Gabapentin 600 mg PO DAILY 10/06/19 [History] Pravastatin Sodium [Pravachol] 40 mg PO HS 10/06/19 [History] Tamsulosin [Flomax] 0.4 mg PO BID 10/06/19 [History] amLODIPine [Norvasc] 10 mg PO DAILY 10/06/19 [History] buPROPion XL [Wellbutrin XL] 450 mg PO DAILY 10/06/19 [History] rOPINIRole HCL 3 mg PO HS 10/06/19 [History] Albuterol Inhaler [Ventolin Hfa Inhaler] 2 puff INHALATION RT-QID PRN #1 inh 10/15/19 [Rx] Follow up Appointment(s)/Referral(s): [facility] [NON-STAFF] - As Needed (oxygen) [facility], [NON-STAFF] - As Needed Karime Jaquez MD [Primary Care Provider] - 1-2 days (office not answering please call to make appointment) Patient Instructions/Handouts: Viral Pneumonia (DC), Using Oxygen at Home (DC) Activity/Diet/Wound Care/Special Instructions: Please follow isolation guidelines included in discharge packet. Please contact [facility] with any questions regarding home oxygen set up. Follow up with Primary Care Provider in 1-2days - please contact office after discharge. Discharge Disposition: HOME WITH HOME HEALTH SERVICES <Alex Eduardo - Last Filed: 10/15/19 17:02> Providers Date of admission: 10/06/19 01:35 Attending physician: Sean Bates MD Consults: 10/06/19 04:43 Consult Physician Routine Consulting Provider: Nuvia Woods Consult Reason/Comments: high suspected COVID, for plaquinel Do you want consulting provider notified?: Yes 10/06/19 04:44 Consult Physician Routine Consulting Provider: Jerry Wong Consult Reason/Comments: bradycardia, recent syncope Do you want consulting provider notified?: Yes 10/06/19 11:20 Consult Physician Stat Consulting Provider: Fede Velez Consult Reason/Comments: pneumonia Do you want consulting provider notified?: Yes Primary care physician: Karime [facility] Course: I have seen and examined the patient on their discharge day with SAMIA Solano. I have reviewed, edited, and agree with the above discharge summary. More than 30 minutes was personally spent on discharge planning on the day of discharge in coordination of care,counseling the patient, and preparation of discharge and transfer paperwork. Patient has improved since admission. He is stable hemodynamically. Able to wean down to 2 L nasal cannula will be sent home with home O2. Advised of warning symptoms of when to seek medical attention. He has completed a course of doxycycline for acute bronchitis. Completed course of hydroxychloroquine while inpatient. Physical exam: General: Non toxic, No distress, appears at stated age Skin: warm, dry Lungs: chest rise symmetrical, no accessory muscle use, no conversational dyspnea Cardiovascular: + dorsal pedis pulse bilateral, capillary refill <2 seconds, no lower extremity edema
--- NOTE | 2019-10-15 12:33 | P.PN ---
Subjective Progress Note Date: 10/15/19 Principal diagnosis: Acute: With 19 pneumonia, and acute hypoxemic respiratory failure 69-year-old male patient admitted to the hospital because of cough and shortness of breath and fever with a very high suspicious for a COVID 19 pneumonia. The patient reports traveling to [place] however he stated a friend's house and this was by the end of August and he drove back to [place]. Denies having any sick contacts. His had similar respiratory symptoms. In the emergency department, the patient was found to be hypoxic and the patient was started on 2 L of oxygen by nasal cannula. Chest x-ray showed some mild interstitial infiltrates bilaterally along with some segmental atelectatic changes in lung bases. His influenza screen was negative. His white cell count was at 5.7. His plated count was 123 which was low. D-dimer was 0.83. He had an LDH of 1095. He had a CPK of 194. C-reactive protein was 33.8. ProBNP level was 183. The pro calcitonin level was 0.05. The patient had some difficulty breathing and on with that he admitted some change in the taste sensation and he was having headache some diffuse body aches. He denied having and diarrhea. This morning, he became more hypoxic. The blood. This was done on 65% FiO2 showed a pH of 7.46 with a pCO2 of 38 and pO2 of 96. The patient was placed on 6 L of oxygen by nasal cannula and later on to 8 L and the patient got chest into the intensive care unit. His resting comfortably in bed. His respiratory rate is between 18 and 24. No significant tachycardia. The CAT scan of the chest was done and showed peripheral groundglass changes most on the lung bases and the findings are typical of Covid 19 infection. The patient also has some enlarged mediastinal lymphadenopathy. No evidence of any pulmonary embolism for now. The patient is seen today 10/07/2019 in follow-up in the intensive care unit. He is awake and alert. He is sitting up in a chair at the bedside. He is still quite short of breath. Continues with a dry nonproductive cough. Still requiring 10 L high flow nasal cannula to maintain O2 saturations in the 90s. He is currently afebrile. Hemodynamically stable. He is feeling about the same as compared to yesterday. No better but no worse presently. White count 6.9. Hemoglobin 13.6. Platelet count 122,000. Lymphocytes 0.8. Sodium 135. Potassium 3.5. Creatinine 0.70. Troponin 0.032. He remains on ceftriaxone, Plaquenil. Azithromycin was discontinued. Zinc was added. Discontinued ibuprofen. Blood cultures reveal no growth. On 10/08/2019 and seeing the patient for follow-up. The patient is essentially the same compared to yesterday. Chest x-ray may show some interval worsening of the breath and pulmonary infiltrates mainly in the lung peripheries. Nevertheless the patient remains on high flow oxygen 10 L per minute nasal cannula. Unable to wean it down any further. He remains on Plaquenil. He remains on zinc sulfate. He is still episodically spiking fever with a temperature 102.4. He has a LDH level of 1087. CPK was at 194. Pro calcitonin level was low. Covid 19 analysis came back positive. The patient has no head ache. No altered mentation. No chest pain. No nausea. No vomiting. No abdominal pain. No other significant events overnight. His cough is not aggressive and it's minimal at this point in time. On 10/09/2019, the patient is still holding on his own and he remains stable with his FiO2 is ranging between 8 present 10 L. Throughout the evening, he was on 10 L of oxygen and the patient was maintaining her pulse ox of around 90-93% and this morning he seems to be slightly more improved and he was weaned down to 8 L and I'm hoping to cut him down to 6 L at a later stage. He is still coughin g. His cough is dry. Some soreness in his chest when he is coughing. He is afebrile. He is hemodynamically stable. IV Solu-Medrol was also started yesterday and the patient received 60 mg IV push every 12 hours. Repeat chest x-ray from today shows stable peripheral pulmonary infiltrates with g roundglass/interstitial changes more so in the lower lobes bilaterally. He is still feeling sick. He is feeling weak. He is complaining of some achiness and soreness. His LDH level is 1073. His C-reactive protein is 71. His EF function is stable with a creatinine of 0.57. The rest of the electrodes are all within normal acceptable ranges. He d-dimer is still elevated at 1.2 which is slightly higher compared to the earlier measurements few days back. No nausea. No vomiting. No diarrhea. No altered mentation. He has checked them positive for Covid 19 infection. On 10/10/2019 the patient remains on 8 L of oxygen by nasal cannula. No new complaints. Chest x-ray findings are essentially stable. Cough has subsided. He is afebrile for now. I was able to cut him down further to 60 Zaroxolyn by nasal cannula. Otherwise, the rest of the blood work is all stable. The patient's CRP level from yesterday was 71 which was higher compared to the earlier evaluation and his LDH level was 1073. He remains on Plaquenil. He remains on zinc sulfate. He remains on IV Rocephin. He is also on IV Solu- Medrol 60 mg every 12 hours that was started on 10/08/2019. This will be continued for the next 3-7 days. No other significant events otherwise for now. The patient is calm and comfortable. No altered mentation. No angina. On 10/11/2019 the patient remains on oxygen which is ranging between the 16th is an 8 L. The patient has limited reserve. Whenever he coughs or whenever he does limited amount of activity desaturates. Chest x-ray showing some limited improvement in the peripheral pulmonary foot is was noted earlier. This was quite encouraging. D-dimer remains elevated at 1.36. The patient's LDH is declining down to 958. C-reactive protein is down to 23.2. He is afebrile for now. He is hemodynamically stable. He was provided an incentive spirometer. No other significant events overnight. He remains on IV Solu Medrol 60 mg every 12 hours and this was started on 10/08/2019 to complete a total of 3-7 7 day course based on the patient's clinical response. No altered mentation. He is feeling weak. He is feeling fatigued and tired. No diarrhea. No nausea. No vomiting. No altered mentation. Reevaluated today on 10/12/19, patient remains in the ICU, on 6 L nasal cannula, chest x-ray continues to show bilateral groundglass opacities. Clinically however the patient is feeling better, remains on on Solu-Medrol. His done with the course of Plaquenil. Done with Zithromax. Remains on zinc. Remains on losartan, Solu-Medrol 40 mg every 12, Protonix, Pravachol, and he is on Flomax 0.4 mg daily. IV fluid is at KVO. Reevaluated today on 10/13/19, patient remains in the ICU as an overflow, he is on 5 L nasal cannula, O2 saturation is 92%, chest x-ray continues to show by lateral peripheral infiltrates, and he continues to have fine crackles on physical examination. Clinically however the patient is feeling well, some shortness of breath, no cough, no wheezing, no fever no chills no hemoptysis and no chest pain. CBC is relatively normal electrolytes and basic metabolic profile are normal renal profile is normal ferritin is 700 LDH is 1153 C- reactive protein is 16.4. D-dimer is 1.36 On 10/14/2019 patient seen in follow-up on general medical floor. Pulse ox is 92% on 5 L, we did cut back the FiO2 to 3 L, and patient is maintaining O2 sat around 90%, no worsening dyspnea, his been afebrile, breathing is comfortable, he is on an extended course of Plaquenil, IV Solu-Medrol, and he has finished his antibiotics. Blood cultures reveal no growth. Today's labs have been reviewed, showing normal white count of 10.6, hemoglobin is 14.8, electrolytes and renal profile are unremarkable. Last d-dimer was done on 10/11/2019, and was elevated to 1.36, last LDH was also done on 10/11/2019, and was elevated at 1153, CRP was 16.4, will follow-up with markers. Today's chest x-ray has been reviewed showing stable peripheral infiltratesbilaterally. On 10/15/2019 patient seen in follow-up on general medical floor. Calm and comf ortable, in no acute distress, his FiO2 is down to 2 L, his pulse ox is 90%, room air pulse ox was 85%, and patient does qualify for home oxygen, his been afebrile, hemodynamically patient is stable, lung sounds are essentially clear to auscultation, today's chest x-ray patchy bilateral peripheral infiltrates, may be slightly improved from previous exam. No acute events overnight, clinically stable, patient can be considered for discharge home today Objective - Vital Signs Vital signs: Vital Signs Temp 97.8 F 10/15/19 10:36 Pulse 69 10/15/19 10:36 Resp 18 10/15/19 10:36 BP 118/56 10/15/19 07:00 Pulse Ox 90 L 10/15/19 10:36 Intake & Output 10/14/19 10/15/19 10/15/19 18:59 06:59 18:59 Intake Total 580 580 Output Total 2225 420 Balance 580 -2225 160 Intake: Oral 580 580 Output: Urine 2225 420 Other: Voiding Method Toilet Urinal # Voids 1 - Exam GENERAL EXAM: Alert, very pleasant, 69-year-old white male, currently on 2 L of oxygen with a pulse ox of 90%, comfortable in no apparent distress. HEAD: Normocephalic/atraumatic. EYES: Normal reaction of pupils, equal size. Conjunctiva pink, sclera white. NOSE: Clear with pink turbinates. THROAT: No erythema or exudates. NECK: No masses, no JVD, no thyroid enlargement, no adenopathy. CHEST: No chest wall deformity. Symmetrical expansion. LUNGS: Equal air entry with no crackles, wheeze, rhonchi or dullness. CVS: Regular rate and rhythm, normal S1 and S2, no gallops, no murmurs, no rubs ABDOMEN: Soft, nontender. No hepatosplenomegaly, normal bowel sounds, no guarding or rigidity. EXTREMITIES: No clubbing, no edema, no cyanosis, 2+ pulses and upper and lower extremities. MUSCULOSKELETAL: Muscle strength and tone normal. SPINE: No scoliosis or deformity SKIN: No rashes CENTRAL NERVOUS SYSTEM: Alert and oriented -3. No focal deficits, tone is nor mal in all 4 extremities. PSYCHIATRIC: Alert and oriented -3. Appropriate affect. Intact judgment and insight. - Labs CBC & Chem 7: 10/15/19 08:25 10/15/19 08:21 Labs: Abnormal Lab Results - Last 24 Hours (Table) 10/15/19 10/15/19 10/15/19 Range/Units 06:32 08:21 08:25 WBC (3.8-10.6) k/uL Neutrophils # (1.3-7.7) k/uL D-Dimer 1.36 H (<0.60) mg/L FEU Sodium 136 L (137-145) mmol/L Carbon Dioxide 32 H (22-30) mmol/L BUN 21 H (9-20) mg/dL Glucose 226 H (74-99) mg/dL POC Glucose (mg/dL) 184 H (75-99) mg/dL Calcium 8.3 L (8.4-10.2) mg/dL ALT 132 H (4-49) U/L Lactate Dehydrogenase 811 H (313-618) U/L Total Protein 6.2 L (6.3-8.2) g/dL Albumin 3.2 L (3.5-5.0) g/dL 10/15/19 Range/Units 08:25 WBC 13.0 H (3.8-10.6) k/uL Neutrophils # 11.1 H (1.3-7.7) k/uL D-Dimer (<0.60) mg/L FEU Sodium (137-145) mmol/L Carbon Dioxide (22-30) mmol/L BUN (9-20) mg/dL Glucose (74-99) mg/dL POC Glucose (mg/dL) (75-99) mg/dL Calcium (8.4-10.2) mg/dL ALT (4-49) U/L Lactate Dehydrogenase (313-618) U/L Total Protein (6.3-8.2) g/dL Albumin (3.5-5.0) g/dL Microbiology - Last 24 Hours (Table) 10/11/19 04:16 Blood Culture - Preliminary Blood No Growth after 48 hours Assessment and Plan Plan: Assessment: #1. Acute hypoxic respiratory failure related to acute COVID 19 pneumonitis, improved #2. Mild thrombocytopenia present on admission, resolved #3. History of obstructive sleep apnea syndrome #4. History of benign essential hypertension #5. History of benign prostatic hyperplasia Plan: Clinically stable, no acute events overnight, today's follow-up chest x-ray has been reviewed showing slightly improved patchy bilateral infiltrates, FiO2 is down to 2 L, patient does qualify for home oxygen as his room air pulse ox was 85%. D-dimer is stable at 1.36, LDH is trending down, CRP is within normal limits on today's labs. Clinically stable for discharge home today, he will need outpatient follow-up COVID 19 testing in 2 weeks with his primary care physician I performed a history & physical examination of the patient and discussed their management with my nurse practitioner, Zora Adorno. I reviewed the nurse practitioner's note and agree with the documented findings and plan of care. Lung sounds are positive for diminished breath sounds. The findings and the impression was discussed with the patient. I attest to the documentation by the nurse practitioner. Time with Patient: Less than 30
--- NOTE | 2019-10-15 14:16 | PN ---
PROGRESS NOTE DATE OF SERVICE: 10/15/2019 REASON FOR FOLLOWUP: Acute COVID-19 pneumonia. INTERVAL HISTORY: The patient is currently afebrile, has been breathing comfortably. Patient denies having any chest pain. Minimal cough. No nausea, no vomiting. No abdominal pain, no diarrhea. PHYSICAL EXAMINATION: Blood pressure is 118/56, pulse of 58, temperature is 97.8, he is 90% on 2 L: General description is an elderly male, up in the chair in no distress. RESPIRATORY SYSTEM: Unlabored breathing, decreased intensity of breath sounds. No wheeze. HEART: S1, S2. Regular rate and rhythm. ABDOMEN: Soft, no tenderness. LABS: Hemoglobin is 15.8, white count of 13, with a BUN of 21, creatinine 0.81. Chest x-ray, patchy bilateral perihilar infiltrate, stable. DIAGNOSTIC IMPRESSION AND PLAN: Patient with acute COVID-19 pneumonia. Patient has completed a 5-day course of oral Plaquenil. Continue with the zinc and may be a short course of tapering steroids on discharge and persistent need for oxygen and continue supportive care. MMODL / IJN: [id number] /
--- NOTE | 2019-10-15 14:29 | ECHOF ---
Referral Reason:lv function MEASUREMENTS -------- HEIGHT: 188.0 cm WEIGHT: 109.3 kg BP: RVIDd: 3.7 cm (< 3.3) IVSd: 1.3 cm (0.6 - 1.1) LVIDd: 5.3 cm (3.9 - 5.3) LVPWd: 1.2 cm (0.6 - 1.1) IVSs: 1.5 cm LVIDs: 4.0 cm LVPWs: 1.2 cm LA Diam: 3.7 cm (2.7 - 3.8) LAESV Index (A-L): 25.26 ml/m Ao Diam: 3.8 cm (2.0 - 3.7) AV Cusp: 2.6 cm (1.5 - 2.6) LA Diam: 3.9 cm (2.7 - 3.8) MV EXCURSION: 14.765 mm (> 18.000) MV EF SLOPE: 75 mm/s (70 - 150) EPSS: 1.0 cm MV E Ren[place]: 0.84 m/s MV DecT: 217 ms MV A [place]: 0.93 m/s MV E/A Ratio: 0.90 RAP: 5.00 mmHg RVSP: 20.31 mmHg FINDINGS -------- Sinus rhythm with extra systolic beats. This was a technically adequate study. The left ventricular size is normal. There is mild concentric left ventricular hypertrophy. Overa ll left ventricular systolic function is low-normal with, an EF between 50 - 55 %. The right ventricle is normal in size. Normal LA size by volume 22+/-6 ml/m2. The right atrial size is normal. There is mild aortic valve sclerosis. Mild mitral annular calcification present. Mild mitral regurgitation is present. Mild tricuspid regurgitation present. Right ventricular systolic pressure is normal at < 35 mmHg. There is no evidence of pulmonary hypertension. The pulmonic valve was not well visualized. There is no pulmonic regurgitation present. The aortic root size is normal. There is no pericardial effusion. CONCLUSIONS -------- 1. There is mild concentric left ventricular hypertrophy. 2. Overall left ventricular systolic function is low-normal with, an EF between 50 - 55 %. 3. Normal LA size by volume 22+/-6 ml/m2. 4. There is mild aortic valve sclerosis. 5. Mild mitral annular calcification present. 6. Mild mitral regurgitation is present. 7. Mild tricuspid regurgitation present. 8. Right ventricular systolic pressure is normal at < 35 mmHg. SOCIAL SECURITY SPECIALIST: Luna Pro RDCS
[2019-10-15 15:50] LABS: Ferritin 476.7 ng/mL (22.0-322.0)
[2019-10-16 19:39] LABS: LD Isoenzymes 1 15 % (19-38); LD Isoenzymes 2 29 % (30-43); LD Isoenzymes 3 17 % (16-26); LD Isoenzymes 4 10 % (3-12); LD Isoenzymes 5 29 % (3-14); Lactacte Dehydrogenase(LD) ISO 388 U/L (120-250)
== END 2019-10-15 15:39 | disposition home health service (06) | DRG 871 ==
LOC: EC 22:28 → 3SCARD 10-06 01:35 → 2SICU 10-06 12:18 → 4SSUR 10-13 21:52
PROVIDERS: ADMIT Internal Medicine; ATTEND Internal Medicine
DX: A41.89 Other specified sepsis (principal); U07.1 COVID-19; J12.89 Other viral pneumonia; J96.01 Acute respiratory failure with hypoxia; J98.11 Atelectasis; I44.1 Atrioventricular block, second degree; D69.59 Other secondary thrombocytopenia; E78.5 Hyperlipidemia, unspecified; G47.33 Obstructive sleep apnea (adult) (pediatric); I10 Essential (primary) hypertension; I49.1 Atrial premature depolarization; N40.0 Benign prostatic hyperplasia without lower urinary tract symptoms; F32.9 Major depressive disorder, single episode, unspecified; R94.31 Abnormal electrocardiogram [ECG] [EKG]; Z79.82 Long term (current) use of aspirin; Z79.899 Other long term (current) drug therapy; Z87.891 Personal history of nicotine dependence; Z80.9 Family history of malignant neoplasm, unspecified
CPT/HCPCS: 36415; 36600; 71045; 71046; 71275; 80048; 80053; 82550; 82728; 82805; 83605; 83615; 83625; 83735; 83880; 84132; 84145; 84484; 85025; 85379; 85610; 85730; 86140; 87040; 87502; 93005; 93306; 94640; 96361; 96365; 96375; 99285

== ENCOUNTER → 2020-09-28 | Outpatient (CLI) | payer MEDICARE ==
[2020-09-28 18:10] LABS: African American GFR (CKD) >90 (>60 ml/min/1.73 sqM); Blood Urea Nitrogen 17 mg/dL (9-20); Non-African American GFR(CKD) 81 (>60 ml/min/1.73 sqM)
--- NOTE | 2020-09-29 08:09 | CT ---
EXAMINATION TYPE: CT angio thor/abd pel aorta DATE OF EXAM: 09/28/2020 INDICATION: f/u aneurysm COMPARISON: No prior CTs at this location CT DLP: 1062.4 mGycm CONTRAST: Performed without Oral Contrast and with IV Contrast, patient injected with 100 mL of Isovue 370. TECHNIQUE: Axial images at 5 mm thick sections. Reconstructed images in the coronal plane. Delayed images through the kidneys. 3-D reconstructed images by the technologist on a separate computer revi ewed. FINDINGS: CT CHEST: Portion of the thyroid visualized is normal. Posterior bilateral irregular densities are present in be related atelectasis. Underlying masses are not excluded. Follow-up these bibasilar findings is recommended. No enlarged mediastinal or hilar adenopathy is evident. The ascending aorta diameter at the level of the main pulmonary artery is 4.4 cm. The main pulmonary artery diameter at the bifurcation is 3.[address] ABDOMEN: Liver: Normal Spleen: Normal Pancreas: Normal Adrenal glands: The adrenal glands are normal. Gallbladder: Normal Kidneys: No masses are evident. No hydronephrosis is present. Cysts are present on the right inferi or kidney. Aorta: Vascular calcification is within the aorta. Some minimal fusiform prominence of the mid abdom inal aorta is present with an AP diameter of 2.6 cm this terminates above the bifurcation. Common abraham ac internal and external iliac vessels are patent. Common femoral arteries are patent. Inferior vena cava: Normal. CT PELVIS: Loops of bowel within the abdomen and pelvis are normal. Fecal debris is within the colon. Appendix: Normal as visualized. Urinary bladder: Normal. Genitourinary structures: Prostate calcifications present. Osseous structures: No suspicious lytic or sclerotic lesions. Facet degenerative changes are within t he lumbar spine.1 IMPRESSIONS: 1. Very minimal fusiform prominence of the mid to distal abdominal aorta with an AP diameter of 2.6 c m terminating above the bifurcation. 2. Ascending thoracic aortic aneurysm measuring 4.4 cm of flow main pulmonary artery. Thoracic aorta tapers to its visualized course. 3. Posterior bilateral irregular densities may be related to atelectasis. Short-term follow-up CT cipriano st within 3 months is recommended.
== END | disposition home or self-care (01) ==
LOC: RADCTMAIN 17:33
PROVIDERS: ATTEND Internal Medicine Critical Care Medicine
DX: I71.2 Thoracic aortic aneurysm, without rupture (principal)
CPT/HCPCS: 82565; 84520; 71275; 36415; 74174; Q9967

== ENCOUNTER → 2020-10-07 | Outpatient (CLI) | payer MEDICARE ==
[2020-10-08 00:13] LABS: Alternaria alternata IgE <0.10 kU/L; Aspergillus fumagatus IgE <0.10 kU/L; Birch IgE <0.10 kU/L; Cladosporian herbarum IgE <0.10 kU/L; Maple (Box Elder) IgE <0.10 kU/L
[2020-10-08 00:14] LABS: Elm IgE <0.10 kU/L; Oak IgE <0.10 kU/L; Ragweed,Common IgE <0.10 kU/L
[2020-10-08 00:15] LABS: Cat Epith & Dander IgE <0.10 kU/L; Dermato. farinae IgE <0.10 kU/L
[2020-10-08 00:16] LABS: Cockroach IgE <0.10 kU/L; Dog Dander IgE <0.10 kU/L
[2020-10-08 00:17] LABS: Red Top (Bentgrass) IgE <0.10 kU/L
== END | disposition home or self-care (01) ==
LOC: LABWHC1 10:57
PROVIDERS: ATTEND Internal Medicine Critical Care Medicine
DX: R05 Cough (principal)
CPT/HCPCS: 36415; 82785; 86003

== ENCOUNTER → 2022-06-04 | Outpatient (CLI) | payer MEDICARE ==
[2022-06-04 13:36] LABS: African American GFR (CKD) >90 (>60 ml/min/1.73 sqM); Blood Urea Nitrogen 13 mg/dL (9-20); Non-African American GFR(CKD) >90 (>60 ml/min/1.73 sqM)
--- NOTE | 2022-06-04 15:04 | CT ---
EXAMINATION TYPE: CT chest w con DATE OF EXAM: 06/04/2022 COMPARISON: None HISTORY: Chronic cough CT DLP: 468.90 mGycm, Automated exposure control for dose reduction was used. CONTRAST: Performed injected with 70 ml mL of Isovue 300. TECHNIQUE: Axial images were obtained at 5 mm thick sections. Reconstructed images are reviewed on [employer] computer in the coronal plane. FINDINGS: Portion of the thyroid visualized is normal. Subtle areas of pneumonitis are in the dependent posterior lung bases greater on the left. Previous p eripheral infiltrates have largely resolved. Consider recurrent atypical pneumonia within the differe ntial. No enlarged mediastinal or hilar adenopathy is evident. The ascending aorta diameter at the level o f the main pulmonary artery is 4.6 cm. The main pulmonary artery diameter at the bifurcation is 3.[address] sections are obtained through the upper abdomen. Abdomen is essentially unremarkable. IMPRESSIONS: 1. Mild posterior dependent infiltrates. Findings are nonspecific, consider atypical pneumonia within the differential. 2. Ascending thoracic aortic aneurysm 4.6 cm.
== END | disposition home or self-care (01) ==
LOC: RADCTMAIN 12:52
PROVIDERS: ATTEND Internal Medicine Critical Care Medicine
DX: I71.21 Aneurysm of the ascending aorta, without rupture (principal); R91.8 Other nonspecific abnormal finding of lung field; R05.3 Chronic cough
CPT/HCPCS: 82565; 84520; 71260; 36415; Q9967

== ENCOUNTER 2022-07-12 11:07 | Day surgery (SDC) | payer MEDICARE ==
[2022-07-09 11:19] VITALS: BMI 29.0
[~2022-07-12 11:07] MED LIST: ALBUTEROL NEB (CONC) 2.5 MG/0.5 ML INHALATION ONE; LACTATED RINGERS 1,000 ML IV SCH; LIDOCAINE 2% (PF) 20 MG/ML 5 ML VIAL INHALATION ONE; LIDOCAINE VISCOUS 300 MG/15 ML CUP MUCOUS MEM ONE
[2022-07-12 11:36] VITALS: TEMP 97.1
[2022-07-12 11:46] LABS: Glucose,Whole Blood 114 mg/dL (70-110)
[2022-07-12] MEDS ORDERED: PROPOFOL 10 MG/ML 20 ML VIAL IV ONE (12:48)
[2022-07-12] MEDS ORDERED: LIDOCAINE 2% INJ 20 MG/ML (2 ML VIAL) ONE (12:48)
[2022-07-12] MEDS ORDERED: fentaNYL (PF) 50 MCG/ML 2 ML AMP ONE (12:48)
[2022-07-12] MEDS ORDERED: MIDAZOLAM 2 MG/2 ML VIAL ONE (12:48)
[2022-07-12] MEDS ORDERED: ONDANSETRON 4 MG/2 ML VIAL ONE (12:48)
[2022-07-12] MEDS ORDERED: LIDOCAINE 2% INJ 20 MG/ML INTRATRACH ONE (13:05)
--- NOTE | 2022-07-12 13:17 | P.PCN ---
Date of Procedure: 07/12/22 Operative Findings: 71-year-old male patient has been experiencing chronic cough. Noted the patient was involved in a Covid 19 infection back in August 2019 and since then he continues to have ongoing persistent dry cough. No intake of any BERLIN inhibitor's. No aspiration. No symptoms of heartburn. He saw me in the office back in May 2021 and at that time he was complaining of worsening in cough. This patient is an ex-smoker. He has [id number] smoking history. He was complaining of some mild shortness of breath also. His chronic cough was unexplained. His spirometry showed an FEV1 of 71% of predicted consistent with mild COPD. His previous CAT scan of the chest showed no evidence of any fibrosis. His IgA level is low and the patient does not have any significant reflux. Based on that, a bronchoscopy was performed This procedure was done under conscious sedation. The patient was given propofol for sedation. After achieving adequate sedation, the flexible bronchoscope was introduced through the right nostril and was advanced into the upper airway. Examination of the posterior pharynx, larynx, epiglottis, vallecula and the vocal cord was done. The arytenoids were slightly swollen and erythematous. Nevertheless, the vocal cord function and mobility was essentially within normal limits. No nodules or lesions. No evidence of any upper airway obstruction under sedation. After applying a total of 2 mL of 1% lidocaine to the vocal cords, the bronchoscope was advanced into the upper trachea. Examination of the tracheobronchial tree was done. There was some loose as per secretions scattered throughout the lung is bilaterally especially in the posterior wall of the trachea and the posterior edward of the bilateral mainstem bronchi. Therapeutic airway suctioning was done. Airway inspection was completed. Inspected airways included the bilateral mainstem bronchi, right upper lobe bronchus, right middle lobe bronchus, bronchus intermedius, right lower lobe bronchus and the various 10 segments on the right and a summation of the left side included the left upper lobe bronchus, left lower lobe bronchus and the various 8 segments on the left. No endobronchial tumors. No lesions. No foreign bodies. The bronchoscope was wedged in the right middle lobe and the bronchial lavage was done with a total of 100 mL of fluid was infused and 40 mL of aspirate was obtained. Note that he did not encounter any significant coughing during the procedure and the patient tolerated the procedure well. We are going to send the fluid for microbial analysis. We'll start the patient on Trelegy Ellipta one inhalation a day and was also given a prednisone burst ta per. The patient will be followed up in the office regarding his cough.
[2022-07-12 13:33] VITALS: PULSE 58
[2022-07-12 13:52] VITALS: BP 106/62; RESP 18
[2022-07-13 04:35] LABS: Appearance,BF Slightly Hazy
== END 2022-07-12 14:28 | disposition home or self-care (01) ==
LOC: ORWHC2ENDO 11:07
PROVIDERS: ATTEND Internal Medicine Critical Care Medicine
DX: R05.3 Chronic cough (principal); G47.33 Obstructive sleep apnea (adult) (pediatric); Z79.51 Long term (current) use of inhaled steroids; Z79.899 Other long term (current) drug therapy; Z86.16 Personal history of COVID-19; Z88.0 Allergy status to penicillin; Z98.890 Other specified postprocedural states
CPT/HCPCS: 87798 ×3; 87496; 87498; 87529; 88108; 88305; 89050; 87252; 87502; 87634; 87070; 87205; 87116; 87102; 87206; 31624; J2001 ×2; J2250; J2405; J3010; J2704

== ENCOUNTER → 2023-06-20 | Outpatient (CLI) | payer MEDICARE ==
[2023-06-20 14:16] LABS: African American GFR (CKD) >90 (>60 ml/min/1.73 sqM); Blood Urea Nitrogen 19 mg/dL (9-20); Non-African American GFR(CKD) 83 (>60 ml/min/1.73 sqM)
--- NOTE | 2023-06-20 15:49 | CT ---
EXAMINATION TYPE: CT angio chest CT DLP: 1207.2 mGycm, Automated exposure control for dose reduction was used. DATE OF EXAM: 06/20/2023 2:50 PM COMPARISON: CT 06/04/2022. CLINICAL INDICATION:Male, 72 years old with history of I10 ESSENTIAL (PRIMARY) HYPERTENSION; Ascendin g thoracic aortic aneurysm. TECHNIQUE/CONTRAST: CTA scan of the thorax is performed with IV Contrast, patient injected with 100 ml mL of Isovue 370, MIP images are created and reviewed these are created on a separate workstation.. FINDINGS: Lungs/Pleura: No evidence of focal consolidation, pleural effusion or pneumothorax. Streaky atelectas is and/or scarring in the lung bases. Airway: Large airways are patent. Heart: Heart is within normal limits for size. Vasculature: No evidence for intramural hematoma on noncontrast imaging. No evidence of intimal flap to suggest dissection. No aneurysm identified. Scattered atherosclerotic disease. Thoracic aorta ecta juan antonio up to 4.4 cm. Mediastinum: No gross evidence of adenopathy. Musculoskeletal: Moderate degenerative disc disease changes are present throughout the thoracolumbar spine. Soft Tissues: Unremarkable. Lower neck: No significant findings. Upper Abdomen: No significant findings. IMPRESSION: 1. Ascending thoracic aorta ectasia up to 4.4 cm 2. Chronic interstitial changes predominantly in lung bases without evidence for acute process.. Follow up recommendations for incidental pulmonary nodules, if there are any, are per [employer] or [employer].
== END | disposition home or self-care (01) ==
LOC: RADCTMAIN 13:36
PROVIDERS: ATTEND Internal Medicine Interventional Cardiology
DX: I71.21 Aneurysm of the ascending aorta, without rupture (principal); J84.9 Interstitial pulmonary disease, unspecified; I10 Essential (primary) hypertension; E78.00 Pure hypercholesterolemia, unspecified
CPT/HCPCS: 82565; 84520; 71275; 36415; Q9967

== ENCOUNTER 2024-01-15 11:59 | Emergency (ER) | payer MEDICARE ==
[2024-01-15 12:04] VITALS: RESP 18
--- NOTE | 2024-01-15 13:10 | ED ---
Fall HPI - General Chief Complaint: Fall Stated Complaint: Fall-R sided rib pain Time Seen by Provider: 01/15/24 12:05 Source: patient, RN notes reviewed Mode of arrival: ambulatory Limitations: no limitations - History of Present Illness Initial Comments: 73-year-old male presents emergency department chief complaint of a fall. Patient states over the weekend he was attempting to get out of a pontoon boat onto a dock when the boat started to slip away states he fell onto the rail onto the right side of his ribs. Patient states he has bruising, pain pain with movement and inspiration no abdominal pain states the pain follows into his back of his ribs. No head injury no loss conscious. - Related Data Home Medications Medication Instructions Recorded Confirmed Pravastatin Sodium [Pravachol] 40 mg PO QAM 10/06/19 07/09/22 Tamsulosin [Flomax] 0.4 mg PO BID 10/06/19 07/09/22 amLODIPine [Norvasc] 10 mg PO QAM 10/06/19 07/09/22 buPROPion XL [Wellbutrin XL] 450 mg PO QAM 10/06/19 07/09/22 rOPINIRole HCL [Requip] 3 mg PO HS 10/06/19 07/09/22 Metoprolol Succinate [Metoprolol 25 mg PO QAM 07/09/22 07/09/22 Succinate ER] Montelukast [Singulair] 10 mg PO HS 07/09/22 07/09/22 Ubidecarenone [Co Q-10] 300 mg PO DAILY 07/09/22 07/09/22 Vitamin B Complex 1 each PO DAILY 07/09/22 07/09/22 Previous Rx's Medication Instructions Recorded HYDROcodone/APAP 5-325MG [Hampton 5] 1 each PO Q6HR PRN #12 tab 01/15/24 Allergies Allergy/AdvReac Type Severity Reaction Status Date / Time Penicillins Allergy Rash/Hives Verified 01/15/24 12:04 Review of Systems ROS Statement: Those systems with pertinent positive or pertinent negative responses have been documented in the HPI. ROS Other: All systems not noted in ROS Statement are negative. Past Medical History Past Medical History: Hyperlipidemia, Hypertension, Sleep Apnea/CPAP/BIPAP Additional Past Medical History / Comment(s): CPAP use. Pre-diabetic. Restless Leg Syndrome. History of Any Multi-Drug Resistant Organisms: None Reported Past Surgical History: Orthopedic Surgery Additional Past Surgical History / Comment(s): Left knee surgery. Past Anesthesia/Blood Transfusion Reactions: No Reported Reaction Past Psychological History: No Psychological Hx Reported Smoking Status: Former smoker Past Alcohol Use History: Occasional Past Drug Use History: None Reported - Past Family History Father Family Medical History: No Reported History Mother Family Medical History: Cancer General Exam Limitations: no limitations General appearance: alert, in no apparent distress Head exam: Present: atraumatic, normocephalic, normal inspection Eye exam: Present: normal appearance, PERRL, EOMI. Absent: scleral icterus, conjunctival injection, periorbital swelling Neck exam: Present: normal inspection, full ROM. Absent: tenderness, meningismus, lymphadenopathy Respiratory exam: Present: normal lung sounds bilaterally, chest wall tenderness (Ecchymosis right anterior lateral ribs and tenderness with palpation.). Absent: respiratory distress, wheezes, rales, rhonchi, stridor Cardiovascular Exam: Present: regular rate, normal rhythm, normal heart sounds. Absent: systolic murmur, diastolic murmur, rubs, gallop, clicks GI/Abdominal exam: Present: soft, normal bowel sounds. Absent: distended, tenderness, guarding, rebound, rigid Neurological exam: Present: alert, oriented X3, CN II-XII intact Course Vital Signs 01/15/24 12:01 Temperature 97.7 F Pulse Rate 68 Respiratory 18 Rate Blood Pressure 202/81 O2 Sat by Pulse 96 Oximetry Medical Decision Making - Medical Decision Making Was pt. sent in by a medical professional or institution (, PA, UNIVERSITY LIBRARIAN, urgent care, hospital, or care home...) When possible be specific @ -No Did you speak to anyone other than the patient for history (EMS, parent, family, police, friend...)? What history was obtained from this source @ -No Did you review nursing and triage notes (agree or disagree)? Why? @ -I reviewed and agree with nursing and triage notes Were old charts reviewed (outside hosp., previous admission, EMS record, old EKG, old radiological studies, urgent care reports/EKG's, care home records)? Report findings @ -No old charts were reviewed Differential Diagnosis (chest pain, altered mental status, abdominal pain women, abdominal pain men, vaginal bleeding, weakness, fever, dyspnea, syncope, headache, dizziness, GI bleed, back pain, seizure, CVA, palpatations, mental health, musculoskeletal)? @ -[Fall, rib contusion, rib fracture, pneumothorax EKG interpreted by me (3pts min.). @ -None X-rays interpreted by me (1pt min.). @ -X right rib series with chest shows nondisplaced rib fractures 6 and [address] interpreted by me (1pt min.). @ -None done U/S interpreted by me (1pt. min.). @ -None done What testing was considered but not performed or refused? (CT, X-rays, U/S, labs)? Why? @ -None What meds were considered but not given or refused? Why? @ -None Did you discuss the management of the patient with other professionals (professionals i.e. , PA, UNIVERSITY LIBRARIAN, lab, RT, psych nurse, social economist, caregiver assisted living, teacher, contact officer, case supervisor)? Give summary @ -No Was smoking cessation discussed for >3mins.? @ -No Was critical care preformed (if so, how long)? @ -No Were there social determinants of health that impacted care today? How? (Homelessness, low income, unemployed, alcoholism, drug addiction, transportation, low edu. Level, literacy, decrease access to med. care, [facility], rehab)? @ -No Was there de-escalation of care discussed even if they declined (Discuss DNR or withdrawal of care, Hospice)? DNR status @ -No What co-morbidities impacted this encounter? (DM, HTN, Smoking, COPD, CAD, Cancer, CVA, ARF, Chemo, Hep., AIDS, mental health diagnosis, sleep apnea, morbid obesity)? @ -None Was patient admitted / discharged? Hospital course, mention meds given and route, prescriptions, significant lab abnormalities, going to OR and other pertinent info. @ -[Discharge patient has right-sided rib fractures no pneumothorax patient provided incentive spirometer analgesics and close follow-up return parens discussed. Undiagnosed new problem with uncertain prognosis? @ -No Drug Therapy requiring intensive monitoring for toxicity (Heparin, Nitro, Insulin, Cardizem)? @ -No Were any procedures done? @ -No Diagnosis/symptom? @ -Right rib fractures Acute, or Chronic, or Acute on Chronic? @ -Acute Uncomplicated (without systemic symptoms) or Complicated (systemic symptoms)? @ -Uncomplicated Side effects of treatment? @ -No Exacerbation, Progression, or Severe Exacerbation? @ -No Poses a threat to life or bodily function? How? (Chest pain, [place], [place], pneumonia, PE, COPD, DKA, ARF, appy, cholecystitis, CVA, Diverticulitis, Homicidal, Suicidal, threat to staff... and all critical care pts) @ -No Disposition Clinical Impression: Fall, Right rib fracture Disposition: HOME SELF-CARE Condition: Stable Instructions (If sedation given, give patient instructions): Rib Fracture (ED) Additional Instructions: Please return to the Emergency Department if symptoms worsen or any other concerns. Prescriptions: HYDROcodone/APAP 5-325MG [Hampton 5] 1 each PO Q6HR PRN #12 tab PRN Reason: Pain Is patient prescribed a controlled substance at d/c from ED?: Yes When asked, does pt state using other controlled substances?: No If prescribed controlled substance>3 days was MAPS reviewed?: Prescribed <3 Days If opioid is for acute pain is fill amount 7 days or less?: Yes If Rx opioid, was Start Talking consent form obtained?: Yes Referrals: Karime Jaquez MD [Primary Care Provider] - 1-2 days Time of Disposition: 14:43
--- NOTE | 2024-01-15 13:52 | XR ---
EXAMINATION TYPE: XR ribs RT w pa chest xray DATE OF EXAM: 01/15/2024 COMPARISON: 10/15/2019 HISTORY: Pain right ribs TECHNIQUE: Chest exam in the frontal projection. Right ribs are examined in 2 projections each. FINDINGS: Heart size is normal. Pulmonary vasculature is normal. No suspicious consolidation evident. No pneumothorax is evident. On the oblique views 6 and 7 posterior lateral right rib fractures are ev ident. IMPRESSION: 1. Right lateral sixth and seventh rib fractures. No pneumothorax is evident.
[2024-01-15] MEDS: HYDROmorphone 1 MG/ML 1 ML SYRINGE IM STA (14:06)
[2024-01-15 15:33] VITALS: BP 168/78; PULSE 72; TEMP 98.5
== END 2024-01-15 15:33 | disposition home or self-care (01) ==
LOC: EC 11:59
DX: S22.41XA Multiple fractures of ribs, right side, initial encounter for closed fracture (principal); Z88.0 Allergy status to penicillin; Z87.891 Personal history of nicotine dependence; W01.198A Fall on same level from slipping, tripping and stumbling with subsequent striking against other object, initial encounter; Y92.814 Boat as the place of occurrence of the external cause
CPT/HCPCS: 71101; 99283; 96372; J1170

== ENCOUNTER 2024-04-15 16:08 | Inpatient (IN) | payer MEDICARE ==
--- NOTE | 2024-04-15 16:56 | ED ---
General Adult HPI - General Chief complaint: Shortness of Breath Stated complaint: covid + Time Seen by Provider: 04/15/24 16:15 Source: patient Mode of arrival: wheelchair Limitations: no limitations - History of Present Illness Initial comments: Patient is 73-year-old male hypertension, hyperlipidemia presented today for shortness of breath. Patient states that he was [place] with [place] this weekend and both of them started having cough and nasal congestion. His brother tested positive for COVID and patient tested positive for COVID yesterday. Today patient states symptoms became much worse. He endorses a persistent cough productive intermittently of sputum but no hemoptysis. No fevers noted at home but did note fever here on arrival to emergency department. No prior antipyretics prior to arrival. No lower extremity swelling. Does endorse shortness of breath, no chest pain. Endorses a headache and "brain fog". Patient denies recent long-term travel, surgeries or hospitalizations. No history of blood clots. No history of cancers. Patient is a non-smoker. No abdominal pain, nausea vomiting or diarrhea. - Related Data Home Medications Medication Instructions Recorded Confirmed Pravastatin Sodium [Pravachol] 40 mg PO DAILY 10/06/19 04/15/24 Tamsulosin [Flomax] 0.4 mg PO BID 10/06/19 04/15/24 amLODIPine [Norvasc] 10 mg PO DAILY 10/06/19 04/15/24 Metoprolol Succinate [Metoprolol 25 mg PO DAILY 07/09/22 04/15/24 Succinate ER] DULoxetine HCL [Cymbalta] 20 mg PO BID 04/15/24 04/15/24 Linaclotide [Linzess] 72 mcg PO DIRECTED 04/15/24 04/15/24 clonazePAM [KlonoPIN] 1 mg PO HS 04/15/24 04/15/24 rOPINIRole HCL [Requip] 4 mg PO HS 04/15/24 04/15/24 Allergies Allergy/AdvReac Type Severity Reaction Status Date / Time Penicillins Allergy Rash/Hives Verified 04/15/24 18:18 Review of Systems ROS Statement: Those systems with pertinent positive or pertinent negative responses have been documented in the HPI. ROS Other: All systems not noted in ROS Statement are negative. Past Medical History Past Medical History: Hyperlipidemia, Hypertension, Sleep Apnea/CPAP/BIPAP Additional Past Medical History / Comment(s): CPAP use. Pre-diabetic. Restless Leg Syndrome. History of Any Multi-Drug Resistant Organisms: None Reported Past Surgical History: Orthopedic Surgery Additional Past Surgical History / Comment(s): Left knee surgery. Past Anesthesia/Blood Transfusion Reactions: No Reported Reaction Past Psychological History: No Psychological Hx Reported Smoking Status: Former smoker Past Alcohol Use History: Occasional Past Drug Use History: None Reported - Past Family History Father Family Medical History: No Reported History Mother Family Medical History: Cancer General Exam - General Exam Comments Initial Comments: PE: CONSTITUTIONAL: No apparent distress, well appearing SKIN: Warm, dry, no jaundice, hives or petechiae EYES: Pupils are equally round, extraocular movements intact without nystagmus, clear conjunctiva, non-icteric sclera HENT: Normocephalic, atraumatic, dry mucus membranes, oropharynx clear without exudates NECK: , Full range of motion, normal appearance PULMONARY: No stridor, scant wheezes in the apices, no focal breath sounds, no rhonchi or rales, no tachypnea or accessory muscle use CARDIOVASCULAR: Regular rate, rhythm, normal S1 and S2. No appreciated murmurs, rubs or gallops. Strong radial pulses with intact distal perfusion. No lower extremity edema GASTROINTESTINAL: Soft, active bowel sounds throughout, non-tender, non- distended, no palpable masses, no rebound or guarding. No hepatosplenomegaly MUSCULOSKELETAL: Extremities have no gross deformity, no edema, redness, or swelling. No calf swelling NEUROLOGIC:_a/o x 3, GCS 15, normal mentation and speech. Moves all extremities x 4 without motor or sensory deficit PSYCHIATRIC:_normal mood and affect, thought process is clear and linear Limitations: no limitations Course Vital Signs 04/15/24 04/15/24 04/15/24 16:10 16:13 17:04 Temperature 101.5 F H Pulse Rate 89 85 Respiratory 18 20 18 Rate Blood Pressure 152/83 135/90 O2 Sat by Pulse 93 L 90 L Oximetry 04/15/24 04/15/24 04/15/24 17:13 18:00 18:36 Temperature 99.9 F H Pulse Rate 81 68 86 Respiratory 22 18 16 Rate Blood Pressure 140/85 131/80 120/60 O2 Sat by Pulse 85 L 88 L 90 L Oximetry 04/15/24 19:48 Temperature Pulse Rate 75 Respiratory 20 Rate Blood Pressure 133/70 O2 Sat by Pulse 95 Oximetry EKG Findings - EKG Comments: EKG Findings:: Sinus rhythm, rate 82 bpm, [place] interval 199 ms, QRS duration 126 ms, QT/QTc 390/429 ms, left axis deviation, no ST elevations or depressions, no arrhythmia; Compared to EKG performed on 09/25/2019 no significant changes from prior Medical Decision Making - Medical Decision Making Was pt. sent in by a medical professional or institution (, PA, RESP THERAPIST, urgent care, hospital, or prison...) When possible be specific @ -No Did you speak to anyone other than the patient for history (EMS, parent, family, police, friend...)? What history was obtained from this source @ -No Did you review nursing and triage notes (agree or disagree)? Why? @ -I reviewed and agree with nursing and triage notes Were old charts reviewed (outside hosp., previous admission, EMS record, old EKG, old radiological studies, urgent care reports/EKG's, prison records)? Report findings @Old charts reviewed-Reviewed discharge summary from When the patient was admitted previously for acute hypoxic respiratory failure due to COVID-19 on 10/15/19 Differential Diagnosis (chest pain, altered mental status, abdominal pain women, abdominal pain men, vaginal bleeding, weakness, fever, dyspnea, syncope, headache, dizziness, GI bleed, back pain, seizure, CVA, palpatations, mental health, musculoskeletal)? Differential Dyspnea: Coronary syndrome, arrhythmia, tamponade, asthma, COPD, pulmonary embolism, pneumonia, pneumothorax, pulmonary effusion, anaphylaxis, diabetic ketoacidosis, flailed chest, pulmonary contusion, diaphragmatic rupture, anemia, neuromuscular, this is not meant to be an all-inclusive list. EKG interpreted by me (3pts min.). @ -As above X-rays interpreted by me (1pt min.). @No cardiomegaly, no consolidations CT interpreted by me (1pt min.). @ -None done U/S interpreted by me (1pt. min.). @ -None done What testing was considered but not performed or refused? (CT, X-rays, U/S, labs)? Why? @ -I did consider obtaining a CT PE study however D-dimer 0.74, I have a low suspicion for PE given low Wells score and suspect dimer elevated 2/2 COVID positive status, D dimer less than 1, combined with low pretest probability, therefor CT PE study not indicated at this point What meds were considered but not given or refused? Why? @ -None Did you discuss the management of the patient with other professionals (professionals i.e. Dr., PA, RESP THERAPIST, lab, RT, psych nurse, child welfare social worker, lawyer criminal, teacher, school services officer, pillowcase maker)? Give summary @ -No Was smoking cessation discussed for >3mins.? @ -No Was critical care preformed (if so, how long)? @ Yes Were there social determinants of health that impacted care today? How? (Homelessness, low income, unemployed, alcoholism, drug addiction, transportation, low edu. Level, literacy, decrease access to med. care, shelter, rehab)? @ -No Was there de-escalation of care discussed even if they declined (Discuss DNR or withdrawal of care, Hospice)? @ -No What co-morbidities impacted this encounter? (DM, HTN, Smoking, COPD, CAD, Cancer, CVA, ARF, Chemo, Hep., AIDS, mental health diagnosis, sleep apnea, morbid obesity)? @ -Hypertension, hyperlipidemia Was patient admitted / discharged? Hospital course, mention meds given and route, prescriptions, significant lab abnormalities, going to OR and other pertinent info. @ -Hospital course admission Patient is a 73-year-old gentleman previously admitted to the ICU for COVID-19 in 2019 hypertension, history hypertension and hyperlipidemia presenting today for shortness of breath and cough x 2 days. COVID positive yesterday. Here pulse ox 90% on room air. Patient states at home pulse ox was in the 70s. On my assessment patient is somewhat ill-appearing but nontoxic. He is awake and alert and pleasant. No tachypnea, pulse ox between 90 and 92% on room air during conversation. Scant wheezes in the upper lung da silva bilaterally. No focal breath sounds. No lower extremity swelling. No focal neurologic deficits. Discussed with patient plan for IV fluids, Tylenol, Decadron, blood work and either a CT PE study versus chest x-ray depending on D-dimer level. Given patient is nontoxic-appearing and has no focal breath sounds, known COVID-19 status x 2 days I do not feel antibiotics are indicated at this point as symptoms are most likely secondary to viral infection. Patient agreeable plan of care. On my reassessment patient pulse ox 88 to 89% on room air. Placed on 2 L oxygen nasal cannula. States he does feel improved after breathing treatments. Labs and imaging reviewed. Grossly within normal limits. Abnormal values not concerning for acute pathology related to presenting complaint.. CRP minimally to 2.4. Plan for admission. Discussed with ANDREA Leong, kindly accepts patient for admission. Patient admitted in stable condition. Undiagnosed new problem with uncertain prognosis? @ -No Drug Therapy requiring intensive monitoring for toxicity (Heparin, Nitro, Insulin, Cardizem)? @ -No Were any procedures done? @ -No Diagnosis/symptom? @ -Acute hypoxic respiratory failure secondary to COVID-19 Acute, or Chronic, or Acute on Chronic? @ -Acute Uncomplicated (without systemic symptoms) or Complicated (systemic symptoms)? @ -Complicated Side effects of treatment? @ -No Exacerbation, Progression, or Severe Exacerbation? @ -No Poses a threat to life or bodily function? How? (Chest pain, USA, NV, pneumonia, PE, COPD, DKA, ARF, appy, cholecystitis, CVA, Diverticulitis, Homicidal, Suicidal, threat to staff... and all critical care pts) @ -Yes - Lab Data Result diagrams: 04/15/24 16:32 04/15/24 16:32 Lab Results 04/15/24 04/15/24 04/15/24 Range/Units 16:32 16:32 16:32 WBC 7.6 (3.8-10.6) k/uL RBC 4.99 (4.30-5.90) m/uL Hgb 15.7 (13.0-17.5) gm/dL Hct 48.7 (39.0-53.0) % MCV 97.6 (80.0-100.0) fL MCH 31.5 (25.0-35.0) pg MCHC 32.3 (31.0-37.0) g/dL RDW 12.8 (11.5-15.5) % Plt Count 115 L (150-450) k/uL MPV 7.7 Neutrophils % 86 % Lymphocytes % 6 % Monocytes % 7 % Eosinophils % 0 % Basophils % 0 % Neutrophils # 6.5 (1.3-7.7) k/uL Lymphocytes # 0.4 L (1.0-4.8) k/uL Monocytes # 0.5 (0-1.0) k/uL Eosinophils # 0.0 (0-0.7) k/uL Basophils # 0.0 (0-0.2) k/uL PT 10.8 (10.0-12.5) sec INR 1.0 (<1.2) APTT 27.2 (22.0-30.0) sec D-Dimer 0.74 H (<0.60) mg/L FEU Sodium 137 (137-145) mmol/L Potassium 3.7 (3.5-5.1) mmol/L Chloride 103 (98-107) mmol/L Carbon Dioxide 26 (22-30) mmol/L Anion Gap 8 mmol/L BUN 14 (9-20) mg/dL Creatinine 0.76 (0.66-1.25) mg/dL Est GFR (CKD-EPI)AfAm >90 (>60 ml/min/1.73 sqM) Est GFR (CKD-EPI)NonAf >90 (>60 ml/min/1.73 sqM) Glucose 131 H (74-99) mg/dL Calcium 9.3 (8.4-10.2) mg/dL Magnesium 1.9 (1.6-2.3) mg/dL Total Bilirubin 1.7 H (0.2-1.3) mg/dL AST 33 (17-59) U/L ALT 26 (4-49) U/L Alkaline Phosphatase 105 (38-126) U/L Lactate Dehydrogenase 244 (120-246) U/L Troponin I (0.000-0.034) ng/mL C-Reactive Protein 2.4 H (<1.0) mg/dL NT-Pro-B Natriuret Pep 481 pg/mL Total Protein 7.5 (6.3-8.2) g/dL Albumin 4.6 (3.5-5.0) g/dL SARS-CoV-2 (PCR) (Not Detectd) 04/15/24 04/15/24 Range/Units 16:32 17:09 WBC (3.8-10.6) k/uL RBC (4.30-5.90) m/uL Hgb (13.0-17.5) gm/dL Hct (39.0-53.0) % MCV (80.0-100.0) fL MCH (25.0-35.0) pg MCHC (31.0-37.0) g/dL RDW (11.5-15.5) % Plt Count (150-450) k/uL MPV Neutrophils % % Lymphocytes % % Monocytes % % Eosinophils % % Basophils % % Neutrophils # (1.3-7.7) k/uL Lymphocytes # (1.0-4.8) k/uL Monocytes # (0-1.0) k/uL Eosinophils # (0-0.7) k/uL Basophils # (0-0.2) k/uL PT (10.0-12.5) sec INR (<1.2) APTT (22.0-30.0) sec D-Dimer (<0.60) mg/L FEU Sodium (137-145) mmol/L Potassium (3.5-5.1) mmol/L Chloride (98-107) mmol/L Carbon Dioxide (22-30) mmol/L Anion Gap mmol/L BUN (9-20) mg/dL Creatinine (0.66-1.25) mg/dL Est GFR (CKD-EPI)AfAm (>60 ml/min/1.73 sqM) Est GFR (CKD-EPI)NonAf (>60 ml/min/1.73 sqM) Glucose (74-99) mg/dL Calcium (8.4-10.2) mg/dL Magnesium (1.6-2.3) mg/dL Total Bilirubin (0.2-1.3) mg/dL AST (17-59) U/L ALT (4-49) U/L Alkaline Phosphatase (38-126) U/L Lactate Dehydrogenase (120-246) U/L Troponin I <0.012 (0.000-0.034) ng/mL C-Reactive Protein (<1.0) mg/dL NT-Pro-B Natriuret Pep pg/mL Total Protein (6.3-8.2) g/dL Albumin (3.5-5.0) g/dL SARS-CoV-2 (PCR) Detected A (Not Detectd) Disposition Clinical Impression: Acute hypoxemic respiratory failure due to COVID-19 Disposition: ADMITTED IP TO THIS HOSP Condition: Stable
[2024-04-15] MEDS: ACETAMINOPHEN TAB 500 MG TAB PO STA (16:58)
[2024-04-15] MEDS: DEXAMETHASONE SOD PHOSPHATE 10 MG/ML 1 ML VIAL IVP STA (16:58)
[2024-04-15] MEDS: SODIUM CHLORIDE 0.9% 1,000 ML IV ONE (16:58)
[2024-04-15] MEDS: ALBUTEROL HFA INHALER INHALATION STA (17:08)
[2024-04-15 17:55] LABS: Basophils % (A) 0 %; Eosinophils % (A) 0 %; HCT 48.7 % (39.0-53.0); HGB 15.7 gm/dL (13.0-17.5); Lymphocytes # (A) 0.4 k/uL (1.0-4.8); Lymphocytes % (A) 6 %; MCH 31.5 pg (25.0-35.0); MCHC 32.3 g/dL (31.0-37.0); MCV 97.6 fL (80.0-100.0); Mean Platelet Volume 7.7; Monocytes # (A) 0.5 k/uL (0-1.0); Monocytes % (A) 7 %; Neutrophils # (A) 6.5 k/uL (1.3-7.7); Neutrophils % (A) 86 %; Platelet Count 115 k/uL (150-450); RBC 4.99 m/uL (4.30-5.90); RDW 12.8 % (11.5-15.5); WBC 7.6 k/uL (3.8-10.6)
[2024-04-15 18:03] LABS: ALT 26 U/L (4-49); AST 33 U/L (17-59); African American GFR (CKD) >90 (>60 ml/min/1.73 sqM); Albumin 4.6 g/dL (3.5-5.0); Alkaline Phosphatase 105 U/L (38-126); Anion Gap 8 mmol/L; Blood Urea Nitrogen 14 mg/dL (9-20); C Reactive Protein 2.4 mg/dL (<1.0); Calcium 9.3 mg/dL (8.4-10.2); Carbon Dioxide 26 mmol/L (22-30); Chloride 103 mmol/L (98-107); Glucose 131 mg/dL (74-99); LDH 244 U/L (120-246); Magnesium 1.9 mg/dL (1.6-2.3); Non-African American GFR(CKD) >90 (>60 ml/min/1.73 sqM); Potassium 3.7 mmol/L (3.5-5.1); Sodium 137 mmol/L (137-145); Total Bilirubin 1.7 mg/dL (0.2-1.3); Total Protein 7.5 g/dL (6.3-8.2)
[2024-04-15 18:08] LABS: Partial Thromboplastin Time 27.2 sec (22.0-30.0); Prothrombin Time 10.8 sec (10.0-12.5)
[2024-04-15 18:10] LABS: NT-Pro-B-Type Natriuretic Pept 481 pg/mL
--- NOTE | 2024-04-15 18:29 | XR ---
EXAMINATION TYPE: XR chest 2V DATE OF EXAM: 04/15/2024 HISTORY: Shortness of breath. COMPARISON: 01/15/2024 TECHNIQUE: Single view of the chest is submitted. FINDINGS: Demonstrated are scattered senescent parenchymal change. There is no evidence for focal infiltrate. The heart is stable. Hilar and mediastinal structures are within normal limits. Degenerative changes are seen of the dorsal spine. IMPRESSION: 1. Chronic changes without evidence for acute pulmonary disease. [facility], , 04/15/2024 6:26 PM
[2024-04-15] MEDS ORDERED: CALCIUM CARBONATE 500 MG CHEWABLE PO PRN (19:34)
[2024-04-15] MEDS ORDERED: ACETAMINOPHEN TAB 325 MG TAB PO PRN (19:34)
[2024-04-15] MEDS ORDERED: NALOXONE 0.4 MG/ML 1 ML VIAL IV PRN (19:34)
[2024-04-15] MEDS ORDERED: MAG HYDROX/AL HYDROX/SIMETH 30 ML CUP PO PRN (19:34)
[2024-04-15] MEDS ORDERED: HYDROcodone/APAP 5-325MG 1 EACH TAB PO PRN (19:34)
[2024-04-15] MEDS ORDERED: METOPROLOL SUCCINATE (ER) 50 MG TAB.ER.24H PO STA (19:51)
[2024-04-15] MEDS: FAMOTIDINE 20 MG TAB PO SCH (20:58)
--- NOTE | 2024-04-16 02:43 | P.CNPUL ---
History of Present Illness Consult date: 04/16/24 Requesting physician: Aracelis Brizuela Reason for consult: other (COVID-19) Chief complaint: URI-like symptoms, shortness of breath History of present illness: Patient is a 73-year-old white male with past medical history is significant for COPD, obstructive sleep apnea, hypertension, hyperlipidemia, peripheral neuropathy, among other things. Follows in the Pulmonary office with Dr. Velez. Recent FEV1 55% of predicted. Patient has moderate COPD. Patient states that last weekend [place]. His [id number] was sick with flulike symptoms, and later tested positive for COVID. Starting 2 days ago, patient started exhibiting symptoms such as rhinorrhea, postnasal drip, minimally productive cough. Subsequently, developing shortness of breath. He did take a home COVID test, which was reportedly positive. Presented to the emergency department yesterday afternoon. Again, did test positive for COVID by PCR. Admits original two series COVID immunization, but no booster injections. Admits previously hospitalization for COVID pneumonia is 2019. This admission, Chest x-ray does not show any focal infiltrates or evidence of COVID-pneumonia. Mostly chronic changes. CBC: WBC count 7.6, hemoglobin 15.7, hematocrit 48.7, platelets 115. CMP: Sodium 137, potassium 3.7, chloride 103, serum bicarb 26, BUN 14, creatinine 0.76, glucose 131. LFTs unremarkable. LDH 244. D-dimer mildly elevated at 0.74. Patient denies any chest pain, hemoptysis, syncopal ev ents, palpitations. No lower extremity edema. Not tachycardic. EKG: Normal sinus rhythm, rate 82 bpm, left axis deviation, no acute ischemic changes. Troponin less than 0.012. NT proBNP 481. Patient is currently resting comfortably on 2 L/min nasal cannula, no acute distress. Does not wear home O2 normally. Does not normally use any inhalers at home. Continues to be intermittently febrile. Vitals are stable. Review of Systems Constitutional: Reports chills, Reports fever, Reports poor appetite, Reports sweats, Denies weight gain, Denies weight loss Ears, nose, mouth and throat: Reports nasal congestion, Reports nasal discharge, Reports post-nasal drip, Denies headache, Denies sinus pressure, Denies sore throat Cardiovascular: Denies chest pain, Denies leg edema, Denies palpitations, Denies rapid heart beat, Denies syncope Respiratory: Reports cough with sputum, Reports dyspnea, Denies excessive sputum, Denies home oxygen, Denies pain on inspiration, Denies wheezing Gastrointestinal: Reports nausea, Denies abdominal pain, Denies constipation, Denies diarrhea, Denies vomiting Genitourinary: Denies dysuria Musculoskeletal: Denies limitation of motion Integumentary: Denies rash Neurological: Denies seizures Psychiatric: Denies anxiety, Denies depression Past Medical History Past Medical History: Hyperlipidemia, Hypertension, Sleep Apnea/CPAP/BIPAP Additional Past Medical History / Comment(s): CPAP use. Pre-diabetic. Restless Leg Syndrome. History of Any Multi-Drug Resistant Organisms: None Reported Past Surgical History: Orthopedic Surgery Additional Past Surgical History / Comment(s): Left knee surgery. Past Anesthesia/Blood Transfusion Reactions: No Reported Reaction Past Psychological History: No Psychological Hx Reported Smoking Status: Former smoker Past Alcohol Use History: Occasional Past Drug Use History: None Reported - Past Family History Father Family Medical History: No Reported History Mother Family Medical History: Cancer Medications and Allergies Home Medications Medication Instructions Recorded Confirmed Type Pravastatin Sodium [Pravachol] 40 mg PO DAILY 10/06/19 04/15/24 History Tamsulosin [Flomax] 0.4 mg PO BID 10/06/19 04/15/24 History amLODIPine [Norvasc] 10 mg PO DAILY 10/06/19 04/15/24 History Metoprolol Succinate [Metoprolol 25 mg PO DAILY 07/09/22 04/15/24 History Succinate ER] DULoxetine HCL [Cymbalta] 20 mg PO BID 04/15/24 04/15/24 History Linaclotide [Linzess] 72 mcg PO DIRECTED 04/15/24 04/15/24 History clonazePAM [KlonoPIN] 1 mg PO HS 04/15/24 04/15/24 History rOPINIRole HCL [Requip] 4 mg PO HS 04/15/24 04/15/24 History Allergies Allergy/AdvReac Type Severity Reaction Status Date / Time Penicillins Allergy Rash/Hives Verified 04/15/24 18:18 Physical Exam Vitals: Vital Signs Temp Pulse Pulse Resp BP BP Pulse Ox 04/16/24 01:20 98.5 F 69 17 140/73 94 L 10/09/24 20:39 98.6 F 77 17 139/78 95 04/15/24 19:48 75 20 133/70 95 04/15/24 18:36 99.9 F H 86 16 120/60 90 L 04/15/24 18:00 68 18 131/80 88 L 04/15/24 17:13 81 22 140/85 85 L 04/15/24 17:04 18 04/15/24 16:13 85 20 135/90 90 L 04/15/24 16:10 101.5 F H 89 18 152/83 93 L Intake and Output 04/15/24 04/15/24 04/16/24 14:59 22:59 06:59 Other: # Voids 1 Weight 120.202 kg GENERAL EXAM: Alert, 73-year-old white male, comfortable in no apparent distres s. HEAD: Normocephalic and atraumatic EYES: Normal reaction of pupils, equal size. NOSE: Clear with pink turbinates. THROAT: No erythema or exudates. NECK: No masses, no JVD. CHEST: No chest wall deformity. LUNGS: Equal air entry with scattered expiratory wheezing. On 2 L/min nasal cannula. SpO2 94%. No conversational dyspnea or accessory muscle use.. CVS: S1 and S2 normal with no audible murmur, regular rhythm. No extra heart sounds ABDOMEN: No hepatosplenomegaly, active bowel sounds, no guarding or rigidity. SPINE: No scoliosis or deformity SKIN: No rashes CENTRAL NERVOUS SYSTEM: No focal deficits, tone is normal in all 4 extremities. EXTREMITIES: There is no peripheral edema, clubbing, or cyanosis. Peripheral pulses are intact. Results - Laboratory Findings CBC and BMP: 04/15/24 16:32 04/15/24 16:32 PT/INR, D-dimer PT 10.8 sec (10.0-12.5) 04/15/24 16:32 INR 1.0 (<1.2) 04/15/24 16:32 D-Dimer 0.74 mg/L FEU (<0.60) H 04/15/24 16:32 Abnormal lab findings: Abnormal Labs 04/15/24 04/15/24 04/15/24 16:32 16:32 16:32 Plt Count 115 L Lymphocytes # 0.4 L D-Dimer 0.74 H Glucose 131 H Total Bilirubin 1.7 H C-Reactive Protein 2.4 H SARS-CoV-2 (PCR) 04/15/24 17:09 Plt Count Lymphocytes # D-Dimer Glucose Total Bilirubin C-Reactive Protein SARS-CoV-2 (PCR) Detected A - Diagnostic Findings Chest x-ray: image reviewed Assessment and Plan Assessment: Acute COVID-19 infection Acute COPD exacerbation Acute hypoxemic respiratory failure, secondary to above Obstructive sleep apnea, with home CPAP Thrombocytopenia Hypertension History of hyperlipidemia History of restless leg syndrome History of BPH History of anxiety/depression Plan: Patient's medications, labs, chest x-ray reviewed No focal infiltrates or evidence of COVID-pneumonia Patient currently on conventional supplemental oxygen at 2 L/min nasal cannula. Continue patient on IV Decadron If worsening pulmonary status, may consider immunomodulator In the meantime, continue supportive care As needed Tylenol for fever Start patient on albuterol and Symbicort inhalers VTE prophylaxis: Lovenox GI prophylaxis: Pepcid Will continue to follow, additional recommendations forthcoming. I have personally seen and examined the patient, performed the documentation and the assessment and plan as written. Number of minutes spent on the visit:20 Time with Patient: Greater than 30
[2024-04-16] MEDS: ALBUTEROL HFA INHALER INHALATION SCH (09:27)
[2024-04-16] MEDS: SYMBICORT 160-4.5 MCG INHALER INHALATION SCH (09:27)
--- NOTE | 2024-04-16 10:11 | P.HPIM ---
History of Present Illness H&P Date: 04/16/24 Chief Complaint: shortness of breath Patient is a 73-year-old male with (COPD not on home O2), hypertension, hyperlipidemia, sleep apnea on CPAP/BiPAP presenting with shortness of breath. He says that he started having cough and nasal congestion around Saturday after [place]. Him and his brother tested positive for COVID yesterday. He states the symptoms have gotten worse. Patient was in contact with PCP about symptoms and states he had measured his oxygen saturation at home and was coming up in the mid 70s, and decided to come to the ED. Patient denies any chest pain, abdominal pain. Patient admits to fever, dry cough with intermittent sputum production. Patient admits to headache, shortness of breath, wheezing, nausea. He regularly follows up with Dr. Velez for his sleep apnea. EKG independently interpreted shows sinus rhythm with left axis deviation, rate 82 bpm, QTc 429 CXR independently interpreted shows no acute cardiopulmonary process WBC 7.6, Hgb 15.7, platelet 115 L, INR 1.0, D-dimer 0.74 H, CO2 26, BUN 14, c reatinine 0.76 glucose 131, total bili 1.7 H, CRP 2.4 H, LDH 244, troponin <0.012, proBNP 481 COVID-19 positive Tmax 101.5 F ==> 98.5 F, AR 169, RR 17, BP 140/73, O2 sat 94% on 2 L nasal cannula ED documentation reviewed. Review of systems: Pertinent positives and negatives as discussed in HPI, a complete review of systems was performed and all other systems are negative. Social history: Tobacco: former 20 year 2 pack/day smoker, quit 20 years ago Alcohol: Occasional Recreational drugs: Denies illicit drug Physical examination: Vital signs reviewed General: non toxic, no distress, appears at stated age, normal weight Derm: no unusual rashes/lesions, warm Head: atraumatic, normocephalic, symmetric Eyes: EOMI, anicteric sclera, pupils equal round reactive to light ENT: Nose and ears atraumatic Neck: No cervical lymphadenopathy, trachea midline, supple Mouth: no lip lesion, mucus membranes moist Cardiovascular: S1S2 reg, no murmur, positive dorsalis pedis pulse bilateral, no edema Lungs: Breath sounds diminished, scattered bilateral wheezing, no accessory muscle use Abdominal: soft, non-tender to palpation, no guarding Ext: muscle strength 5 out of 5 in all 4 extremities grossly, no gross muscle atrophy Neuro: CN II-XI grossly intact, no gross focal neuro deficits Psych: Alert, oriented to person, place, and time Assessment/Plan: Patient is a 71-year-old male with COPD, hypertension, hyperlipidemia, sleep apnea on CPAP/BiPAP presenting with shortness of breath. Active #. Acute hypoxemic respiratory failure in the setting of COVID-19 infection CXR independently interpreted shows no acute cardiopulmonary process Was given Tylenol 1000 mg p.o. once in the ED Was given NS 1L IV bolus by by ED Tylenol 650 p.o. Q6 HR as needed for fever Currently on O2 2L nasal cannula Procalcitonin pending EKG ordered Cardiac monitoring Aerobic/anaerobic blood cultures pending Pulmonology following, note reviewed. Continue patient on IV Decadron 6 mg IVP daily ID following to evaluate for remdesivir #. Thrombocytopenia Platelet 115 No active signs of bleeding Continue to monitor CBC Chronic #. COPD (no home O2), not in acute exacerbation Albuterol 2 puff inhalation 4 times daily by pulmonology Symbicort 160-4.5 mcg inhaler 2 puff twice daily by pulmonology Pulmonology following #. Hypertension Norvasc 10 mg p.o. daily Metoprolol 25 mg p.o. daily #. Hyperlipidemia Continue with pravastatin 40 mg p.o. daily #. Restless leg syndrome Continue Requip 4 mg p.o. at bedtime #. BPH Continue Flomax 0.4 mg p.o. twice daily #. Anxiety/depression Continue Cymbalta 20 mg p.o. twice daily Continue clonazepam 1 mg p.o. at bedtime F: N/A E: Replete electrolytes as needed N: Regular diet A: Ambulatory DVT prophylaxis: Lovenox 40 SQ daily GI prophylaxis: Pepcid 20 mg p.o. twice daily The patient is admitted with an anticipated greater than 2 midnight stay for evaluation of upper respiratory tract infection COVID-19 positive. CODE STATUS: Full code Discussed with: Patient Anticipated discharge place: Home Attestation I have seen and examined this patient with my resident , discussed the same with the resident/SAMIA, and agree with the dictator's assessment and plan as written Dr. Nilton aviles Past Medical History Past Medical History: Hyperlipidemia, Hypertension, Sleep Apnea/CPAP/BIPAP Additional Past Medical History / Comment(s): CPAP use. Pre-diabetic. Restless Leg Syndrome. History of Any Multi-Drug Resistant Organisms: None Reported Past Surgical History: Orthopedic Surgery Additional Past Surgical History / Comment(s): Left knee surgery. Past Anesthesia/Blood Transfusion Reactions: No Reported Reaction Past Psychological History: No Psychological Hx Reported Smoking Status: Former smoker Past Alcohol Use History: Occasional Past Drug Use History: None Reported - Past Family History Father Family Medical History: No Reported History Mother Family Medical History: Cancer Medications and Allergies Home Medications Medication Instructions Recorded Confirmed Type Pravastatin Sodium [Pravachol] 40 mg PO DAILY 10/06/19 04/15/24 History Tamsulosin [Flomax] 0.4 mg PO BID 10/06/19 04/15/24 History amLODIPine [Norvasc] 10 mg PO DAILY 10/06/19 04/15/24 History Metoprolol Succinate [Metoprolol 25 mg PO DAILY 07/09/22 04/15/24 History Succinate ER] DULoxetine HCL [Cymbalta] 20 mg PO BID 04/15/24 04/15/24 History clonazePAM [KlonoPIN] 1 mg PO HS 04/15/24 04/15/24 History rOPINIRole HCL [Requip] 4 mg PO HS 04/15/24 04/15/24 History Linaclotide [Linzess] 145 mcg PO DAILY 04/16/24 04/16/24 History Allergies Allergy/AdvReac Type Severity Reaction Status Date / Time Penicillins Allergy Rash/Hives Verified 04/15/24 18:18 Physical Exam Vitals: Vital Signs Temp Pulse Pulse Resp BP BP Pulse Ox 04/16/24 01:20 98.5 F 69 17 140/73 94 L 04/15/24 20:39 98.6 F 77 17 139/78 95 04/15/24 19:48 75 20 133/70 95 04/15/24 18:36 99.9 F H 86 16 120/60 90 L 04/15/24 18:00 68 18 131/80 88 L 04/15/24 17:13 81 22 140/85 85 L 04/15/24 17:04 18 04/15/24 16:13 85 20 135/90 90 L 04/15/24 16:10 101.5 F H 89 18 152/83 93 L Intake and Output 04/15/24 04/16/24 04/16/24 22:59 06:59 14:59 Other: # Voids 1 Weight 120.202 kg Results CBC & Chem 7: 04/17/24 07:24 04/17/24 07:24 Labs: Abnormal Lab Results - Last 24 Hours (Table) 04/15/24 04/15/24 04/15/24 Range/Units 16:32 16:32 16:32 Plt Count 115 L (150-450) k/uL Lymphocytes # 0.4 L (1.0-4.8) k/uL D-Dimer 0.74 H (<0.60) mg/L FEU Glucose 131 H (74-99) mg/dL Total Bilirubin 1.7 H (0.2-1.3) mg/dL C-Reactive Protein 2.4 H (<1.0) mg/dL SARS-CoV-2 (PCR) (Not Detectd) 04/15/24 Range/Units 17:09 Plt Count (150-450) k/uL Lymphocytes # (1.0-4.8) k/uL D-Dimer (<0.60) mg/L FEU Glucose (74-99) mg/dL Total Bilirubin (0.2-1.3) mg/dL C-Reactive Protein (<1.0) mg/dL SARS-CoV-2 (PCR) Detected A (Not Detectd) Thrombosis Risk Factor Assmnt - Choose All That Apply Each Risk Factor Represents 2 Points: Age 61-74 years Thrombosis Risk Factor Assessment Total Risk Factor Score: 2 Thrombosis Risk Factor Assessment Level: Low Risk
[2024-04-16] MEDS: METOPROLOL SUCCINATE (ER) 25 MG TAB.ER.24H PO SCH (10:15)
[2024-04-16] MEDS: PRAVASTATIN SODIUM 40 MG TAB PO SCH (10:15)
[2024-04-16] MEDS: TAMSULOSIN 0.4 MG CAP.ER.24H PO SCH (10:15)
[2024-04-16] MEDS: ENOXAPARIN 40 MG/0.4 ML SYRINGE SQ SCH (10:15)
[2024-04-16] MEDS: amLODIPine 10 MG TAB PO SCH (10:16)
[2024-04-16] MEDS: DEXAMETHASONE SOD PHOSPHATE 10 MG/ML 1 ML VIAL IVP SCH (10:16)
[2024-04-16] MEDS: DULoxetine HCL 20 MG CAPSULE.DR PO SCH (11:19)
[2024-04-16] MEDS: clonazePAM 0.5 MG TAB PO SCH (22:00)
[2024-04-16] MEDS: rOPINIRole HCL 4 MG TABLET PO SCH (22:01)
[2024-04-17 06:14] VITALS: PULSE 56
[2024-04-17 07:31] LABS: African American GFR (CKD) >90 (>60 ml/min/1.73 sqM); Anion Gap 6 mmol/L; Blood Urea Nitrogen 19 mg/dL (9-20); Calcium 8.1 mg/dL (8.4-10.2); Carbon Dioxide 31 mmol/L (22-30); Chloride 102 mmol/L (98-107); Glucose 146 mg/dL (74-99); Magnesium 2.3 mg/dL (1.6-2.3); Non-African American GFR(CKD) >90 (>60 ml/min/1.73 sqM); Potassium 3.4 mmol/L (3.5-5.1); Sodium 139 mmol/L (137-145)
[2024-04-17 07:34] VITALS: BP 137/68; RESP 19; TEMP 97.7
[2024-04-17 07:53] LABS: Basophils % (A) 0 %; Eosinophils % (A) 0 %; HCT 43.3 % (39.0-53.0); HGB 14.1 gm/dL (13.0-17.5); Lymphocytes # (A) 1.2 k/uL (1.0-4.8); Lymphocytes % (A) 13 %; MCHC 32.7 g/dL (31.0-37.0); MCV 97.8 fL (80.0-100.0); Mean Platelet Volume 8.2; Monocytes # (A) 0.6 k/uL (0-1.0); Monocytes % (A) 7 %; Neutrophils # (A) 6.8 k/uL (1.3-7.7); Neutrophils % (A) 77 %; Platelet Count 132 k/uL (150-450); RBC 4.42 m/uL (4.30-5.90); RDW 12.7 % (11.5-15.5); WBC 8.9 k/uL (3.8-10.6)
[2024-04-17 07:54] LABS: ALT 21 U/L (4-49); AST 24 U/L (17-59); African American GFR (CKD) >90 (>60 ml/min/1.73 sqM); Albumin 3.5 g/dL (3.5-5.0); Albumin/Globulin Ratio 1.3; Alkaline Phosphatase 69 U/L (38-126); Anion Gap 3 mmol/L; Blood Urea Nitrogen 19 mg/dL (9-20); Calcium 8.3 mg/dL (8.4-10.2); Carbon Dioxide 34 mmol/L (22-30); Chloride 102 mmol/L (98-107); Globulin 2.6 g/dL; Glucose 146 mg/dL (74-99); Non-African American GFR(CKD) >90 (>60 ml/min/1.73 sqM); Potassium 3.7 mmol/L (3.5-5.1); Sodium 139 mmol/L (137-145); Total Bilirubin 0.7 mg/dL (0.2-1.3); Total Protein 6.1 g/dL (6.3-8.2)
--- NOTE | 2024-04-17 08:37 | P.CONS ---
History of Present Illness - Reason for Consult Consult date: 04/16/24 COVID-19 evaluate for remdesivir Requesting physician: Reese Whalen - Chief Complaint Shortness of breath and cough x 2 days - History of Present Illness Patient is a 73-year-old male with a past medical history significant for hypertension hyperlipidemia sleep apnea apparently the patient was recently [place] over the weekend and started having mostly URI symptoms of nasal congestion, patient also have a cough which is slightly more than his usual chronic cough mild to moderate intensity not bringing up any sputum no pleuritic chest pain patient mention he was monitoring his O2 sats at home and noticed his O2 sats to be down to 70% which concerned him and he presented to the hospital on arrival to the ER patient did have a fever of 101.5 F patient was not tachycardic or hypotensive he was hypoxic with O2 sat down to 85% however he is currently 92% on room air patient did have normal white count with lymphopenia creatinine has been normal liver enzymes are normal CRP is 2.4 procalcitonin 0.06 patient did tested positive for COVID-19 chest x-ray chronic changes without evidence for acute pulmonary process patient has been admitted to hospital infectious he was consulted today regarding need for remdesivir Review of Systems Positive point and negatives has been mentioned in the HPI, complete review of systems was performed and all other systems are negative Past Medical History Past Medical History: Hyperlipidemia, Hypertension, Sleep Apnea/CPAP/BIPAP Additional Past Medical History / Comment(s): CPAP use. Pre-diabetic. Restless Leg Syndrome. History of Any Multi-Drug Resistant Organisms: None Reported Past Surgical History: Orthopedic Surgery Additional Past Surgical History / Comment(s): Left knee surgery. Past Anesthesia/Blood Transfusion Reactions: No Reported Reaction Past Psychological History: No Psychological Hx Reported Smoking Status: Former smoker Past Alcohol Use History: Occasional Past Drug Use History: None Reported - Past Family History Father Family Medical History: No Reported History Mother Family Medical History: Cancer Medications and Allergies Home Medications Medication Instructions Recorded Confirmed Type Pravastatin Sodium [Pravachol] 40 mg PO DAILY 10/06/19 04/15/24 History Tamsulosin [Flomax] 0.4 mg PO BID 10/06/19 04/15/24 History amLODIPine [Norvasc] 10 mg PO DAILY 10/06/19 04/15/24 History Metoprolol Succinate [Metoprolol 25 mg PO DAILY 07/09/22 04/15/24 History Succinate ER] DULoxetine HCL [Cymbalta] 20 mg PO BID 04/15/24 04/15/24 History clonazePAM [KlonoPIN] 1 mg PO HS 04/15/24 04/15/24 History rOPINIRole HCL [Requip] 4 mg PO HS 04/15/24 04/15/24 History Linaclotide [Linzess] 145 mcg PO DAILY 04/16/24 04/16/24 History Allergies Allergy/AdvReac Type Severity Reaction Status Date / Time Penicillins Allergy Rash/Hives Verified 04/15/24 18:18 Physical Exam Vitals: Vital Signs Temp Pulse Pulse Resp BP BP Pulse Ox 04/16/24 07:27 97.4 F L 71 16 131/73 94 L 04/16/24 01:20 98.5 F 69 17 140/73 94 L 04/15/24 20:39 98.6 F 77 17 139/78 95 04/15/24 19:48 75 20 133/70 95 04/15/24 18:36 99.9 F H 86 16 120/60 90 L 04/15/24 18:00 68 18 131/80 88 L 04/15/24 17:13 81 22 140/85 85 L 04/15/24 17:04 18 04/15/24 16:13 85 20 135/90 90 L 04/15/24 16:10 101.5 F H 89 18 152/83 93 L Intake and Output 04/15/24 04/16/24 04/16/24 22:59 06:59 14:59 Other: # Voids 1 Weight 120.202 kg GENERAL DESCRIPTION: Elderly male lying in bed, no distress. No tachypnea or accessory muscle of respiration use. HEENT: Shows Pallor , no scleral icterus. Oral mucous membrane is dry. No pharyngeal erythema or thrush NECK: Trachea central, no thyromegaly. LUNGS: Unlabored breathing. Coarse breath sounds bilaterally HEART: S1, S2, regular rate and rhythm. No loud murmur ABDOMEN: Soft, no tenderness , guarding or rigidity, no organomegaly EXTREMITIES: No edema of feet. SKIN: No rash, no masses palpable. NEUROLOGICAL: The patient is awake, alert, oriented x3, mood and affect normal. Results CBC & Chem 7: 04/17/24 07:24 10 07:24 Labs: Abnormal Lab Results - Last 24 Hours (Table) 04/15/24 04/15/24 04/15/24 Range/Units 16:32 16:32 16:32 Plt Count 115 L (150-450) k/uL Lymphocytes # 0.4 L (1.0-4.8) k/uL D-Dimer 0.74 H (<0.60) mg/L FEU Glucose 131 H (74-99) mg/dL Total Bilirubin 1.7 H (0.2-1.3) mg/dL C-Reactive Protein 2.4 H (<1.0) mg/dL SARS-CoV-2 (PCR) (Not Detectd) 04/15/24 Range/Units 17:09 Plt Count (150-450) k/uL Lymphocytes # (1.0-4.8) k/uL D-Dimer (<0.60) mg/L FEU Glucose (74-99) mg/dL Total Bilirubin (0.2-1.3) mg/dL C-Reactive Protein (<1.0) mg/dL SARS-CoV-2 (PCR) Detected A (Not Detectd) Assessment and Plan (1) COVID-19 Current Visit: Yes Status: Acute Code(s): U07.1 - COVID-19 SNOMED Code(s): 803479864 (2) Acute hypoxemic respiratory failure due to COVID-19 Current Visit: Yes Status: Acute Code(s): U07.1 - COVID-19; J96.01 - ACUTE RESPIRATORY FAILURE WITH HYPOXIA SNOMED Code(s): 758420441 Plan: 1patient presented to the hospital with increasing shortness of breath cough hypoxemia in this patient tested positive for COVID-19 chest x-ray has been negative for acute infiltrate the patient did have improvement in his hypoxemia with initial treatment of steroids with the patient currently off supplemental oxygen and chest x-ray with no pneumonia would not qualify for remdesivir per [facility] policy. 2 Patient to continue with dexamethasone Lovenox and zinc and ascorbic acid 3-no need for systemic antibiotic therapy at this point as there is no evidence of any secondary bacterial pneumonia We will follow on clinical condition and cultures to further adjust medication if needed Thank you for this consultation we will follow the patient along with you Dictation was produced using Runner dictation software. please excuse any grammatical, word or spelling errors. Time with Patient: Greater than 30
[2024-04-17] MEDS: ZINC SULFATE 220 MG CAP PO SCH (09:33)
[2024-04-17] MEDS: ASCORBIC ACID 500 MG TAB PO SCH (09:33)
[2024-04-17] MEDS: METOPROLOL SUCCINATE (ER) 25 MG TAB.ER.24H PO SCH (09:33)
--- NOTE | 2024-04-17 09:44 | P.CRDCN ---
History of Present Illness History of present illness: HISTORY OF PRESENT ILLNESS: This is a 73-year-old male with a past medical history significant for hypertension, hyperlipidemia, prediabetes, ascending thoracic aneurysm, and former nicotine dependence. Patient follows in the office with Dr. Valverde. We have been asked to see the patient in consultation for junctional rhythm. Patient examined at the bedside. Patient states he began to have upper respiratory symptoms at home. He reports having a mild cough and shortness of breath at home. He states his oxygen level was in the 80s. He also reports having feelings of nausea without vomiting. He reports having fevers around 100 F as well. States that he took a COVID test at home and it was found to be positive. He presented to the hospital for further evaluation. At the time of examination, patient states he is feeling much better. He currently denies any chest pain or pressure. Reports improvement in his shortness of breath. Currently denies a cough. He reports feeling a little bit unsteady on his feet this morning. He denies any dizziness or palpitations. Telemetry overnight reviewed revealing sinus mechanism with episodes of junctional beats. Telemetry this morning reveals sinus mechanism. DIAGNOSTICS: - EKG reveals sinus mechanism with no signs of acute ischemia - Chest xray chronic changes without evidence for acute pulmonary process - Laboratory data: WBC 8.9. Hemoglobin 14.1. Platelet count 132. Sodium 139. Potassium 3.7. BUN 19. Creatinine 0.79. Troponin negative x 1. proBNP 481. - Current home cardiac medications include metoprolol succinate 25 mg daily, Pravachol 40 mg daily, amlodipine 10 mg daily - Most recent echocardiogram obtained in July 2022 revealed ejection fraction 55% with moderate concentric LVH - Patient underwent Lexiscan stress test in August 2022 revealing small inferior basal fixed defect with minimal hypokinesia cannot exclude small GA. No ischemia. Results were discussed with patient and medical therapy was agreed upon. REVIEW OF SYSTEMS: At the time of my exam: CONSTITUTIONAL: Denies fever or chills. HEENT: Denies blurred vision, vision changes, or eye pain. Denies hemoptysis CARDIOVASCULAR: Denies chest pain. Denies orthopnea. Denies PND. Denies palpitations RESPIRATORY: Denies shortness of breath. GASTROINTESTINAL: Denies abdominal pain. Denies nausea or vomiting. HEMATOLOGIC: Denies bleeding disorders. GENITOURINARY: Denies any blood in urine. SKIN: Denies pruitis. Denies rash. PHYSICAL EXAM: VITAL SIGNS: Reviewed. GENERAL: Well-developed in no acute distress. HEENT: Head is normocephalic. Pupils are equal, round. Sclerae anicteric. Mucous membranes of the mouth are moist. Neck supple. No JVD or thyromegaly LUNGS: Respirations even and unlabored. Lungs essentially clear to auscultation bilaterally. HEART: Regular rate and rhythm. S1 and S2 heard. ABDOMEN: Soft. Nondistended. Nontender. EXTREMITIES: Normal range of motion. No clubbing or cyanosis. Peripheral pulses intact. No lower extremity edema NEUROLOGIC: Awake and alert. Oriented x 3. ASSESSMENT: Acute COVID-19 Acute hypoxic respiratory failure requiring supplemental oxygen, secondary to above, resolved Intermittent junctional rhythm, overnight while patient sleeping Hypertension Hyperlipidemia Prediabetes History of ascending thoracic aneurysm, measuring 4.4 cm COPD Obstructive sleep apnea Former nicotine dependence PLAN: No need to obtain echocardiogram at this time Resume metoprolol Patient is currently stable from a cardiac standpoint with no further inpatient recommendations Discharge per medicine We will follow on as-needed basis. Please call with questions or concerns. Nurse practitioner note has been reviewed by physician. Signing provider agrees with the documented findings, assessment, and plan of care documented by [employer] as a scribe. Past Medical History Past Medical History: Hyperlipidemia, Hypertension, Sleep Apnea/CPAP/BIPAP Additional Past Medical History / Comment(s): CPAP use. Pre-diabetic. Restless L eg Syndrome. History of Any Multi-Drug Resistant Organisms: None Reported Past Surgical History: Orthopedic Surgery Additional Past Surgical History / Comment(s): Left knee surgery. Past Anesthesia/Blood Transfusion Reactions: No Reported Reaction Past Psychological History: No Psychological Hx Reported Smoking Status: Former smoker Past Alcohol Use History: Occasional Past Drug Use History: None Reported - Past Family History Father Family Medical History: No Reported History Mother Family Medical History: Cancer Medications and Allergies Home Medications Medication Instructions Recorded Confirmed Type Pravastatin Sodium [Pravachol] 40 mg PO DAILY 10/06/19 04/15/24 History Tamsulosin [Flomax] 0.4 mg PO BID 10/06/19 04/15/24 History amLODIPine [Norvasc] 10 mg PO DAILY 10/06/19 04/15/24 History Metoprolol Succinate [Metoprolol 25 mg PO DAILY 07/09/22 04/15/24 History Succinate ER] DULoxetine HCL [Cymbalta] 20 mg PO BID 04/15/24 04/15/24 History clonazePAM [KlonoPIN] 1 mg PO HS 04/15/24 04/15/24 History rOPINIRole HCL [Requip] 4 mg PO HS 04/15/24 04/15/24 History Linaclotide [Linzess] 145 mcg PO DAILY 04/16/24 04/16/24 History Allergies Allergy/AdvReac Type Severity Reaction Status Date / Time Penicillins Allergy Rash/Hives Verified 04/15/24 18:18 Physical Exam Vitals: Vital Signs Temp Pulse Resp BP Pulse Ox 04/17/24 08:55 95 04/17/24 08:50 95 04/17/24 07:09 97.7 F 56 L 19 137/68 92 L 04/17/24 06:14 56 L 131/70 04/17/24 03:29 62 135/74 95 04/17/24 00:13 98.2 F 75 17 133/72 91 L 04/16/24 19:29 97.9 F 61 16 149/71 97 04/16/24 13:30 97.7 F 63 19 138/69 93 L 04/16/24 12:34 96 04/16/24 12:21 96 04/16/24 11:31 16 Intake and Output 04/16/24 04/17/24 04/17/24 22:59 06:59 14:59 Intake Total 250 Balance 250 Intake: Oral 250 Other: # Voids 3 2 Results 04/17/24 07:24 04/17/24 07:24 Cardiac Enzymes 04/17/24 Range/Units 07:24 AST 24 (17-59) U/L CBC 04/17/24 Range/Units 07:24 WBC 8.9 (3.8-10.6) k/uL RBC 4.42 (4.30-5.90) m/uL Hgb 14.1 (13.0-17.5) gm/dL Hct 43.3 (39.0-53.0) % Plt Count 132 L (150-450) k/uL Comprehensive Metabolic Panel 04/17/24 04/17/24 Range/Units 07:00 07:24 Sodium 139 139 (137-145) mmol/L Potassium 3.4 L 3.7 (3.5-5.1) mmol/L Chloride 102 102 (98-107) mmol/L Carbon Dioxide 31 H 34 H (22-30) mmol/L BUN 19 19 (9-20) mg/dL Creatinine 0.77 0.79 (0.66-1.25) mg/dL Glucose 146 H 146 H (74-99) mg/dL Calcium 8.1 L 8.3 L (8.4-10.2) mg/dL AST 24 (17-59) U/L ALT 21 (4-49) U/L Alkaline Phosphatase 69 (38-126) U/L Total Protein 6.1 L (6.3-8.2) g/dL Albumin 3.5 (3.5-5.0) g/dL Current Medications Generic Name Dose Route Start Last Admin Trade Name Freq PRN Reason Stop Dose Admin Acetaminophen 650 mg 04/15/24 19:34 Acetaminophen Tab 325 Mg Tab PO Q6HR PRN Mild Pain or Fever > 100.5 Hydrocodone Bitart/Acetaminophen 1 each 04/15/24 19:34 Hydrocodone/Apap 5-325mg 1 Each Tab PO Q6HR PRN Moderate Pain (Scale 4 to 6) Al Hydroxide/Mg Hydroxide 15 ml 04/15/24 19:34 Mag Hydrox/Al Hydrox/Simeth 30 Ml Cup PO Q6HR PRN Indigestion Albuterol Sulfate 2 puff 04/16/24 08:00 04/17/24 08:50 Albuterol Hfa Inhaler INHALATION 2 puff RT-QID LILLI Administration Amlodipine Besylate 10 mg 04/16/24 09:00 04/17/24 08:11 Amlodipine 10 Mg Tab PO 10 mg DAILY LILLI Administration Ascorbic Acid 1,000 mg 04/17/24 09:00 04/17/24 09:33 Ascorbic Acid 500 Mg Tab PO 1,000 mg DAILY LILLI Administration Budesonide/Formoterol Fumarate 2 puff 04/16/24 08:00 04/17/24 08:50 Symbicort 160-4.5 Mcg Inhaler INHALATION 2 puff RT-BID LILLI Administration Calcium Carbonate/Glycine 1,000 mg 04/15/24 19:34 Calcium Carbonate 500 Mg Chewable PO Q4HR PRN Dyspepsia Clonazepam 1 mg 04/16/24 21:00 04/16/24 22:00 Clonazepam 0.5 Mg Tab PO 1 mg HS LILLI Administration Dexamethasone 6 mg 04/18/24 09:00 Dexamethasone 2 Mg Tab PO 04/25/24 09:01 DAILY LILLI Duloxetine HCl 20 mg 04/16/24 09:00 04/17/24 08:12 Duloxetine Hcl 20 Mg Capsule.Dr PO 20 mg BID LILLI Administration Enoxaparin Sodium 40 mg 04/16/24 09:00 04/17/24 08:12 Enoxaparin 40 Mg/0.4 Ml Syringe SQ 40 mg DAILY LILLI Administration Famotidine 20 mg 04/15/24 21:00 04/17/24 08:12 Famotidine 20 Mg Tab PO 20 mg BID LILLI Administration Metoprolol Succinate 25 mg 04/17/24 09:00 04/17/24 09:33 Metoprolol Succinate (Er) 25 Mg Tab.Er.24h PO 25 mg DAILY LILLI Administration Naloxone HCl 0.2 mg 04/15/24 19:34 Naloxone 0.4 Mg/Ml 1 Ml Vial IV Q2M PRN Opioid Reversal Pravastatin Sodium 40 mg 04/16/24 09:00 04/17/24 08:12 Pravastatin Sodium 40 Mg Tab PO 40 mg DAILY LILLI Administration Ropinirole HCl 4 mg 04/16/24 21:00 04/16/24 22:01 Ropinirole Hcl 4 Mg Tablet PO 4 mg HS LILLI Administration Tamsulosin HCl 0.4 mg 04/16/24 09:00 04/17/24 08:12 Tamsulosin 0.4 Mg Cap.Er.24h PO 0.4 mg BID LILLI Administration Zinc Sulfate 220 mg 04/17/24 09:00 04/17/24 09:33 Zinc Sulfate 220 Mg Cap PO 220 mg DAILY LILLI Administration Intake and Output 04/16/24 04/17/24 04/17/24 22:59 06:59 14:59 Intake Total 250 Balance 250 Intake: Oral 250 Other: # Voids 3 2 04/17/24 07:24 04/17/24 07:24
--- NOTE | 2024-04-17 12:20 | P.PN ---
Subjective Progress Note Date: 04/17/24 Patient is a 73-year-old white male with past medical history is significant for COPD, obstructive sleep apnea, hypertension, hyperlipidemia, peripheral neuropathy, among other things. Follows in the Pulmonary office with Dr. Velez. Recent FEV1 55% of predicted. Patient has moderate COPD. Patient st ates that last weekend he went [place]. His [id number] was sick with flulike symptoms, and later tested positive for COVID. Starting 2 days ago, patient started exhibiting symptoms such as rhinorrhea, postnasal drip, minimally productive cough. Subsequently, developing shortness of breath. He did take a home COVID test, which was reportedly positive. Presented to the emergency department yesterday afternoon. Again, did test positive for COVID by PCR. Admits original two series COVID immunization, but no booster injections. Admits previously hospitalization for COVID pneumonia is 2019. This admission, Chest x-ray does not show any focal infiltrates or evidence of COVID-pneumonia. Mostly chronic changes. CBC: WBC count 7.6, hemoglobin 15.7, hematocrit 48.7, platelets 115. CMP: Sodium 137, potassium 3.7, chloride 103, serum bicarb 26, BUN 14, creatinine 0.76, glucose 131. LFTs unremarkable. LDH 244. D-dimer mildly elevated at 0.74. Patient denies any chest pain, hemoptysis, syncopal events, palpitations. No lower extremity edema. Not tachycardic. EKG: Normal sinus rhythm, rate 82 bpm, left axis deviation, no acute ischemic changes. Troponin less than 0.012. NT proBNP 481. Patient is currently resting comfortably on 2 L/min nasal cannula, no acute distress. Does not wear home O2 normally. Does not normally use any inhalers at home. Continues to be intermittently febrile. Vitals are stable. The patient is seen today April 17, 2024 in follow-up on the regular medical floor. He is currently resting comfortably in bed. Awake and alert in no acute distress. Maintaining good O2 saturations in the 90s on room air. He is continued on Decadron, Symbicort, albuterol. Lovenox for DVT prophylaxis. Continued on vitamin supplements. Blood cultures revealing no growth. White count 8.9. Hemoglobin 14.1. Platelets 132. Sodium 139. Potassium 3.7. Bicarb 34. BUN 19. Creatinine 0.79. Glucose 146. Objective - Vital Signs Vital signs: Vital Signs Temp 97.7 F 04/17/24 07:09 Pulse 56 L 04/17/24 07:09 Resp 19 04/17/24 07:09 BP 137/68 04/17/24 07:09 Pulse Ox 95 04/17/24 08:55 FiO2 Intake & Output 04/16/24 04/17/24 04/17/24 18:59 06:59 18:59 Intake Total 450 Balance 450 Intake: Oral 450 Other: # Voids 3 2 - Exam GENERAL EXAM: Alert, 73-year-old male, resting comfortably in bed, on room air, in no apparent distress. HEAD: Normocephalic and atraumatic EYES: Normal reaction of pupils, equal size. NOSE: Clear with pink turbinates. THROAT: No erythema or exudates. NECK: No masses, no JVD. CHEST: No chest wall deformity. LUNGS: Equal air entry with scattered expiratory wheezing. No conversational dyspnea or accessory muscle use.. CVS: S1 and S2 normal with no audible murmur, regular rhythm. No extra heart sounds ABDOMEN: No hepatosplenomegaly, active bowel sounds, no guarding or rigidity. SPINE: No scoliosis or deformity SKIN: No rashes CENTRAL NERVOUS SYSTEM: No focal deficits, tone is normal in all 4 extremities. EXTREMITIES: There is no peripheral edema, clubbing, or cyanosis. Peripheral pulses are intact. - Labs CBC & Chem 7: 04/17/24 07:24 04/17/24 07:24 Labs: Abnormal Lab Results - Last 24 Hours (Table) 04/17/24 04/17/24 04/17/24 Range/Units 07:00 07:24 07:24 Plt Count 132 L (150-450) k/uL Potassium 3.4 L (3.5-5.1) mmol/L Carbon Dioxide 31 H 34 H (22-30) mmol/L Glucose 146 H 146 H (74-99) mg/dL Calcium 8.1 L 8.3 L (8.4-10.2) mg/dL Total Protein 6.1 L (6.3-8.2) g/dL Microbiology - Last 24 Hours (Table) 04/15/24 17:20 Blood Culture - Preliminary Blood 10/09/24 17:15 Blood Culture - Preliminary Blood Assessment and Plan Assessment: Acute COVID-19 infection Acute COPD exacerbation Acute hypoxemic respiratory failure, secondary to above Obstructive sleep apnea, with home CPAP Thrombocytopenia Hypertension History of hyperlipidemia History of restless leg syndrome History of BPH History of anxiety/depression Plan: The patient was seen and evaluated Labs and medications reviewed Currently stable and on room air Continued on bronchodilators, Decadron Cleared for discharge from the pulmonary standpoint Complete a 10-day course of Decadron Follow-up in the office in 1 week I have personally seen and examined the patient, performed the documentation and the assessment and plan as written. Number of minutes spent on the visit: 10.
--- NOTE | 2024-04-17 14:16 | P.DS ---
Providers Date of admission: 04/15/24 19:34 Discharge Diagnosis: Acute hypoxemic respiratory failure COVID-19 Thrombocytopenia COPD (no home O2) Hypertension Hyperlipidemia Restless leg syndrome BPH Anxiety Depression Hospital Course: Patient is a 73-year-old male with (COPD not on home O2), hypertension, hyperlipidemia, sleep apnea on CPAP/BiPAP presenting with shortness of breath. He says that he started having cough and nasal congestion around Saturday after traveling [place] this past weekend. Him and his brother tested positive for COVID yesterday. He states the symptoms have gotten worse. Patient was in contact with PCP about symptoms and states he had measured his oxygen saturation at home and was coming up in the mid 70s, and decided to come to the ED. Patient denies any chest pain, abdominal pain. Patient admits to fever, dry cough with intermittent sputum production. Patient admits to headache, shortness of breath, wheezing, nausea. He regularly follows up with Dr. Velez for his sleep apnea. EKG independently interpreted shows sinus rhythm with left axis deviation, rate 82 bpm, QTc 429 CXR independently interpreted shows no acute cardiopulmonary process WBC 7.6, Hgb 15.7, platelet 115 L, INR 1.0, D-dimer 0.74 H, CO2 26, BUN 14, creatinine 0.76 glucose 131, total bili 1.7 H, CRP 2.4 H, LDH 244, troponin <0.012, proBNP 481 COVID-19 positive Tmax 101.5 F ==> 98.5 F, [place] 169, RR 17, BP 140/73, O2 sat 94% on 2 L nasal cannula Patient admitted for further evaluation for acute hypoxemic respiratory failure in the setting of COVID-19 infection. 04/17/2024: Patient seen and examined at bedside. Patient states he is feels much better and his cough has calmed down denies any wheezing. Patient's blood cultures displayed no growth after 24 hours. Patient cleared by pulmonology and infectious disease. Patient states he regularly follows up with Dr. Velez and has a scheduled appointment with them. Patient is to follow-up with PCP. Patient is being discharged with albuterol inhaler and Symbicort 160-4.5 mcg inhaler. Patient is being discharged home. Vital signs reviewed and stable. Physical examination: Vital signs reviewed General: non toxic, no distress, appears at stated age, normal weight Derm: no unusual rashes/lesions, warm Head: atraumatic, normocephalic, symmetric Eyes: EOMI, anicteric sclera, pupils equal round reactive to light ENT: Nose and ears atraumatic Neck: No cervical lymphadenopathy, trachea midline, supple Mouth: no lip lesion, mucus membranes moist Cardiovascular: S1S2 reg, no murmur, positive dorsalis pedis pulse bilateral, no edema Lungs: CTA bilateral, no wheezing, no rales, no rhonchi, no accessory muscle use Abdominal: soft, non-tender to palpation, no guarding Ext: muscle strength 5 out of 5 in all 4 extremities grossly, no gross muscle atrophy Neuro: CN II-XI grossly intact, no gross focal neuro deficits Psych: Alert, oriented to person, place, and time A total of greater than 30 minutes of time were spent preparing this complex discharge summary. Patient was discharge on April 17, 2024 at 12:43 PM Attestation I have seen and examined this patient with my resident , discussed the same with the resident/SAMIA, and agree with the dictator's assessment and plan as written Dr. Nilton aviles Expected date of discharge: 04/17/24 Attending physician: Luz Marina Grady Consults: 04/15/24 19:34 Consult Physician Routine Consulting Provider: Adalberto Whyte Consult Reason/Comments: COVID 19 Pneumonia Do you want consulting provider notified?: Yes, Notify in am 04/16/24 10:27 Consult Physician Routine Consulting Provider: Nuvia Woods Consult Reason/Comments: covid 19, evaluate for remdesivir Do you want consulting provider notified?: Yes Primary care physician: Karime Jaquez Patient Condition at Discharge: Stable Plan - Discharge Summary Discharge Rx Participant: Yes New Discharge Prescriptions: New Budesonide-Formot 160-4.5 Mcg [Symbicort 160-4.5 Mcg Inhaler] 2 puff INHALATION RT-BID #1 each Albuterol Inhaler [Ventolin Hfa Inhaler] 2 puff INHALATION RT-QID #1 each Continue Tamsulosin [Flomax] 0.4 mg PO BID amLODIPine [Norvasc] 10 mg PO DAILY Pravastatin Sodium [Pravachol] 40 mg PO DAILY Metoprolol Succinate [Metoprolol Succinate ER] 25 mg PO DAILY Linaclotide [Linzess] 145 mcg PO DAILY rOPINIRole HCL [Requip] 4 mg PO HS DULoxetine HCL [Cymbalta] 20 mg PO BID clonazePAM [KlonoPIN] 1 mg PO HS Discharge Medication List Pravastatin Sodium [Pravachol] 40 mg PO DAILY 10/06/19 [History] Tamsulosin [Flomax] 0.4 mg PO BID 10/06/19 [History] amLODIPine [Norvasc] 10 mg PO DAILY 10/06/19 [History] Metoprolol Succinate [Metoprolol Succinate ER] 25 mg PO DAILY 07/09/22 [History] DULoxetine HCL [Cymbalta] 20 mg PO BID 04/15/24 [History] clonazePAM [KlonoPIN] 1 mg PO HS 04/15/24 [History] rOPINIRole HCL [Requip] 4 mg PO HS 04/15/24 [History] Linaclotide [Linzess] 145 mcg PO DAILY 04/16/24 [History] Albuterol Inhaler [Ventolin Hfa Inhaler] 2 puff INHALATION RT-QID #1 each 04/17/24 [Rx] Budesonide-Formot 160-4.5 Mcg [Symbicort 160-4.5 Mcg Inhaler] 2 puff INHALATION RT-BID #1 each 04/17/24 [Rx] Follow up Appointment(s)/Referral(s): Luis Alberto Lanza MD [REFERRING] - 1 Week None,Stated [REFERRING] - 1-2 days Discharge Disposition: HOME SELF-CARE
--- NOTE | 2024-04-17 15:16 | P.PN ---
Subjective Progress Note Date: 04/17/24 Principal diagnosis: Reason for follow-up is COVID-19 Patient is a 73-year-old male with a past medical history significant for hypertension hyperlipidemia sleep apnea, recent diagnosis of COVID-19 presented to hospital with hypoxia and increasing shortness of breath although chest x-ray was negative for acute infiltrate On today's evaluation that is 04/17/2024, Patient is afebrile this morning patient denies having any chest pain shortness of breath or any worsening cough, the patient is currently on room air, patient denies any abdominal pain no diarrhea no nausea no vomiting, patient mention he is back to his baseline feeling better wants to go home. The patient white count is 8.9, creatinine 0.79 procalcitonin has been normal Objective - Vital Signs Vital signs: Vital Signs Temp 97.7 F 04/17/24 07:09 Pulse 56 L 04/17/24 07:09 Resp 19 04/17/24 07:09 BP 137/68 04/17/24 07:09 Pulse Ox 95 04/17/24 08:55 FiO2 Intake & Output 04/16/24 04/17/24 04/17/24 18:59 06:59 18:59 Intake Total 450 Balance 450 Intake: Oral 450 Other: # Voids 3 2 - Exam GENERAL DESCRIPTION: An elderly male lying in bed in no distress RESPIRATORY SYSTEM: Unlabored breathing , decreased breath sounds at bases HEART: S1 S2 regular rate and rhythm , ABDOMEN: Soft , no tenderness EXTREMITIES: No edema feet - Labs CBC & Chem 7: 04/17/24 07:24 04/17/24 07:24 Labs: Abnormal Lab Results - Last 24 Hours (Table) 04/17/24 04/17/24 04/17/24 Range/Units 07:00 07:24 07:24 Plt Count 132 L (150-450) k/uL Potassium 3.4 L (3.5-5.1) mmol/L Carbon Dioxide 31 H 34 H (22-30) mmol/L Glucose 146 H 146 H (74-99) mg/dL Calcium 8.1 L 8.3 L (8.4-10.2) mg/dL Total Protein 6.1 L (6.3-8.2) g/dL Microbiology - Last 24 Hours (Table) 04/15/24 17:20 Blood Culture - Preliminary Blood 04/15/24 17:15 Blood Culture - Preliminary Blood Assessment and Plan (1) COVID-19 Status: Acute Code(s): U07.1 - COVID-19 SNOMED Code(s): 935119220 (2) Acute hypoxemic respiratory failure due to COVID-19 Status: Acute Code(s): U07.1 - COVID-19; J96.01 - ACUTE RESPIRATORY FAILURE WITH HYPOXIA SNOMED Code(s): 774291068 Plan: 1patient presented to the hospital with increasing shortness of breath cough hypoxemia in this patient tested positive for COVID-19 chest x-ray has been negative for acute infiltrate the patient did have improvement in his hypoxemia with initial treatment of steroids with the patient currently off supplemental oxygen and chest x-ray with no pneumonia would not qualify for remdesivir per [facility] policy. 2 Patient seem to have shown overall clinical improvement and has been cleared for discharge by pulmonary no need for antibiotics or antivirals on discharge Dictation was produced using [employer] dictation software. please excuse any grammatical, word or spelling errors. Time with Patient: Less than 30
[2024-04-18] MEDS ORDERED: dexAMETHasone 2 MG TAB PO SCH (09:00)
== END 2024-04-17 14:50 | disposition home or self-care (01) | DRG 177 ==
LOC: EC 16:08 → 4SSUR 19:34
PROVIDERS: ADMIT Hospitalist; ATTEND Hospitalist
DX: U07.1 COVID-19 (principal); J12.82 Pneumonia due to coronavirus disease 2019; J96.01 Acute respiratory failure with hypoxia; J44.1 Chronic obstructive pulmonary disease with (acute) exacerbation; J44.0 Chronic obstructive pulmonary disease with (acute) lower respiratory infection; N40.0 Benign prostatic hyperplasia without lower urinary tract symptoms; E78.5 Hyperlipidemia, unspecified; D69.6 Thrombocytopenia, unspecified; I49.8 Other specified cardiac arrhythmias; G47.33 Obstructive sleep apnea (adult) (pediatric); I10 Essential (primary) hypertension; F32.A Depression, unspecified; F41.9 Anxiety disorder, unspecified; G25.81 Restless legs syndrome; R73.03 Prediabetes; Z79.51 Long term (current) use of inhaled steroids; Z79.899 Other long term (current) drug therapy; Z87.891 Personal history of nicotine dependence; Z88.0 Allergy status to penicillin
CPT/HCPCS: 36415; 71046; 80048; 80053; 82728; 83615; 83735; 83880; 84145; 84484; 85025; 85379; 85610; 85730; 86140; 87040; 87635; 93005; 94640; 94760; 96361; 96374; 99285

== ENCOUNTER → 2024-05-05 | Outpatient (CLI) | payer MEDICARE ==
--- NOTE | 2024-05-05 14:10 | XR ---
EXAMINATION TYPE: XR chest 2V DATE OF EXAM: 05/05/2024 COMPARISON: 04/15/2024 HISTORY: 73-year-old male J18.9, pneumonia follow-up TECHNIQUE: Frontal and lateral views FINDINGS: Heart normal size. Hyperinflation. Mild patchy posterior left basilar opacity also seen on the latera l view. No pleural effusion. IMPRESSION: COPD with focal posterior left basilar atelectasis versus infiltrate/pneumonia. [facility], , 05/05/2024 2:08 PM
== END | disposition home or self-care (01) ==
LOC: RADXRMAIN 12:42
PROVIDERS: ATTEND Family Medicine
DX: J18.9 Pneumonia, unspecified organism (principal)
CPT/HCPCS: 71046

== ENCOUNTER → 2024-05-11 | Outpatient (CLI) | payer MEDICARE ==
--- NOTE | 2024-05-11 14:27 | XR ---
EXAMINATION TYPE: XR chest 2V DATE OF EXAM: 05/11/2024 2:02 PM COMPARISON: 05/05/2024 CLINICAL INDICATION: Male, 73 years old with history of J12.89 OTHER VIRAL PNEUMONIA, TECHNIQUE: XR chest 2V view(s) obtained. FINDINGS: The heart size is normal. The pulmonary vasculature is normal. Mild infiltrates along the left lung base. Correlate for atelectasis or pneumonia. Findings are stabl e from comparison. IMPRESSION: 1. Mild left basilar infiltrate. Correlate for atelectasis or pneumonia. Follow-up is recommended [facility], , 05/11/2024 2:25 PM
== END | disposition home or self-care (01) ==
LOC: RADXRMAIN 13:51
PROVIDERS: ATTEND Family Medicine
DX: J12.89 Other viral pneumonia (principal); R91.8 Other nonspecific abnormal finding of lung field
CPT/HCPCS: 71046